=== PATIENT | male | born 1985 | race Caucasian/White ===

== ENCOUNTER 2022-03-01 11:57 | Outpatient (CLI) | payer BC, SELFPAY ==
--- NOTE | ~2022-03-01 | MR_ITS ---
MRI of the brain Clinical History: Left parietal glioma, status post partial resection Technique: Axial and sagittal T1-weighted images were acquired. These were followed by axial T2-weigh fernando, diffusion weighted, gradient, and FLAIR images. Following intravenous administration of 20 cc Mu ltiHance gadolinium, T1-weighted fat-sat imaging was performed in the axial, coronal, and sagittal pl anes. No prior studies available for comparison. Findings: There is a 3.3 x 1.8 x 2.7 cm area of postsurgical encephalomalacia/cystic change at the le ft frontoparietal junction region, with intrinsic T1 hyperintensity, suggestive of proteinaceous, or possibly hemorrhagic material, but no low signal evident on gradient images. There is surrounding amorphous hyperintense FLAIR signal throughout this region with corresponding T1 hypointensity, involving extent of up to approximately 6.4 cm in AP extent, 4 cm in transverse dimen cullen, and 4.3 cm in craniocaudal extent. There is a small focal area of apparent postcontrast enhance ment measuring 9 x 6 mm in extent (coronal postcontrast image 14, axial postcontrast image 18), suspi cious for residual tumor. No other parenchymal abnormality seen. Ventricles and subarachnoid spaces are otherwise unremarkable. Orbits are unremarkable. Changes cyst or polyp present in the floor the left maxillary sinus. Remaining paranasal sinuses are clear. Sagittal midline structures are intact. IMPRESSION: Postoperative change in the left frontoparietal junction region, as detailed above, with 3.3 x 1.8 x 2.7 cm area of postsurgical encephalitis/cystic change. 9 x 6 mm area of postcontrast enhancement adjacent to the surgical bed, suspicious for residual tumor . Fairly extensive surrounding hyperintense FLAIR signal which could reflect vasogenic edema. Additiona l residual nonenhancing tumor cannot be excluded if this is a low-grade glioma. Comparison with preop erative imaging examinations would be useful to better evaluate for interval change as well as the de gree of enhancement on the preoperative exam. Reviewed, dictated and finalized at location M. ER CHARGER IMPRESSION: Postoperative change in the left frontoparietal junction region, as detailed ab ove, with 3.3 x 1.8 x 2.7 cm area of postsurgical encephalitis/cystic change. 9 x 6 mm area of postcontrast enhancement adjacent to the surgical bed, suspici ous for residual tumor. Fairly extensive surrounding hyperintense FLAIR signal which could reflect vaso genic edema. Additional residual nonenhancing tumor cannot be excluded if this is a low-grade glioma. Comparison with preoperative imaging examinations would be useful to better evaluate for interval change as well as the degree of enhan cement on the preoperative exam.
== END 2022-03-01 11:58 ==
LOC: GOSHIMG 11:58
PROVIDERS: PCP Radiology Radiation Oncology; Visit Provider Radiology Radiation Oncology
DX: Z08 Encounter for follow-up examination after completed treatment for malignant neoplasm (principal); C71.9 Malignant neoplasm of brain, unspecified
CPT/HCPCS: 70553; A9577

== ENCOUNTER 2022-03-08 12:25 | Outpatient (CLI) | payer BC, SELFPAY ==
[2022-03-08 12:42] LABS: Basophils Absolute Auto 0.1 K/mm3 (0.0-0.1); Basophils Percent Auto 0.7 % (0.2-1.2); Eosinophils Absolute Auto 0.2 K/mm3 (0-0.3); Eosinophils Percent Auto 1.6 % (0-4.4); Hematocrit 48.7 % (42.0-52.0); Hemoglobin 15.5 g/dL (14.0-18.0); Immature Granulocyte Absolute 0.04 K/mm3 (0.00-0.031); Immature Granulocyte Percent A 0.4 % (0-0.5); Lymphocytes Absolute Auto 2.93 K/mm3 (0.9-3.2); Lymphocytes Percent Auto 28.5 % (18.3-44.2); Mean Corpuscular HGB Conc 31.8 g/dl (32-36); Mean Corpuscular Hemoglobin 30.6 pg (26-34); Mean Corpuscular Volume 96.1 fl (80-100); Mean Platelet Volume 9.6 fl (7.4-10.4); Monocytes Absolute Auto 0.7 K/mm3 (0.1-0.6); Monocytes Percent Auto 6.9 % (2.6-8.5); Neutrophils Absolute Auto 6.4 K/mm3 (1.3-6.7); Neutrophils Percent Auto 61.9 % (45.5-73.1); Platelet Count Result 305 k/mm3 (150-375); Red Blood Count 5.07 M/mm3 (4.6-6.20); Red Cell Distribution Width 13.3 % (11.5-14.5); White Blood Count 10.3 K/mm3 (4.5-10.0)
[2022-03-08 15:29] LABS: Alanine Aminotransferase 88 U/L (6-50); Albumin Level 4.2 g/dL (3.5-5.1); Alkaline Phosphatase 69 U/L (38-126); Anion Gap 8 mmol/L (8-16); Aspartate Amino Transferase 60 U/L (17-59); Bilirubin,Total 0.4 mg/dL (0.2-1.3); Blood Urea Nitrogen 22 mg/dL (9-20); Calcium 9.5 mg/dL (8.4-10.2); Carbon Dioxide 35 mmol/L (22-30); Chloride 97 mmol/L (98-107); Estimated Glomerular Filt Rate > 60; Glucose 159 mg/dL (65-110); Sodium 140 mmol/L (137-145)
== END 2022-03-08 12:26 | disposition home or self-care (01) ==
LOC: ANHLAB 12:26
PROVIDERS: Visit Provider Internal Medicine Hematology & Oncology
DX: C71.9 Malignant neoplasm of brain, unspecified (principal)
CPT/HCPCS: 36415; 80053; 85025

== ENCOUNTER 2022-04-03 11:22 | Outpatient (CLI) | payer BC, SELFPAY ==
[2022-04-03 11:32] LABS: Basophils Absolute Auto 0.1 K/mm3 (0.0-0.1); Basophils Percent Auto 0.4 % (0.2-1.2); Eosinophils Absolute Auto 0.1 K/mm3 (0-0.3); Hematocrit 52.8 % (42.0-52.0); Hemoglobin 17.6 g/dL (14.0-18.0); Immature Granulocyte Absolute 0.07 K/mm3 (0.00-0.031); Immature Granulocyte Percent A 0.5 % (0-0.5); Lymphocytes Absolute Auto 2.08 K/mm3 (0.9-3.2); Lymphocytes Percent Auto 15.5 % (18.3-44.2); Mean Corpuscular HGB Conc 33.3 g/dl (32-36); Mean Corpuscular Hemoglobin 30.8 pg (26-34); Mean Corpuscular Volume 92.5 fl (80-100); Mean Platelet Volume 10.6 fl (7.4-10.4); Monocytes Percent Auto 7.2 % (2.6-8.5); Neutrophils Absolute Auto 10.1 K/mm3 (1.3-6.7); Neutrophils Percent Auto 75.4 % (45.5-73.1); Platelet Count Result 302 k/mm3 (150-375); Red Blood Count 5.71 M/mm3 (4.6-6.20); Red Cell Distribution Width 13.4 % (11.5-14.5); White Blood Count 13.4 K/mm3 (4.5-10.0)
== END 2022-04-03 11:23 | disposition home or self-care (01) ==
LOC: ANHLAB 11:23
PROVIDERS: Visit Provider Internal Medicine Hematology & Oncology
DX: C71.9 Malignant neoplasm of brain, unspecified (principal)
CPT/HCPCS: 36415; 85025

== ENCOUNTER 2022-04-23 12:30 | Outpatient (RCR) | payer BC, SELFPAY ==
--- NOTE | 2022-03-02 13:58 | STOPEVAL1 ---
Assessment and note entered by Jana Villarreal, WATER PROJECT MANAGER Evaluation Information Assessment Status Evaluation Onset 12/2021 Subjective Information Patient reports he was at work and had a seizure. He was sent to the [facility] in [place]. Reports that his seizure was at the very end of December and had his surgery, tumor removal and craniotomy, on the Saturday after the . As a result, he states that they had to leave a little bit of the tumor and hopefully this will be taken care of with radiation. He expects six weeks of radiation through [facility]. Patient expects to return to work after radiation. 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 Patient reported that prior to the seizure and discovery of the brain tumor, at work, he would have to look at numbers and state them aloud to a work-mate and he was having difficulty doing so. He stated he knew the number but unable to say it. Reported Pain Level Pain Score 0: Self Report Assessment ST Clinical Summary SPEECH EVALuATION WITH PARTIAL COGNITIVE EVALUATION Patient was seen for a speech evaluation with some cognitive skills addressed secondary to patient's voicing concerns. He presented with moderate dysarthria characterized as reduced speech sound precision for bilabial and labial-dental sounds that require tight lip closure, and moderately reduced precision for lingua-dentals and posterio lingual sounds (t,d,s,z,l,n,k,g) along with transposing front and back sounds (i.e. gubble for dubble but unable to rapidly imitate a ka sound; had to repeat cookie in order to produce a repetitive back sound. Patient also presents with slow rate of speech. Patient's higher-level memory was assessed; he was in general oriented to time and place. Patient recalled 3 words immediately and after delay but unable to recall five words immediately and after delay. Additionally, he recalled information in a short story but unable to recall all 10 words from a longer story even with instructions to Remember ___.
--- NOTE | 2022-04-03 15:19 | PCSTNOTE ---
The patient treatment was not able to be completed on 04/03 due to illness. Will plan to continue treatment per plan of care.
--- NOTE | 2022-04-05 16:39 | STOPPROG ---
Assessment and note entered by Jana Villarreal EDGE ROLLER Evaluation Information Assessment Status Evaluation Assessment ST Clinical Summary PROGRESS NOTE AND RE-EVALUATION The patient has been seen for ten sessions of Speech Therapy including an evaluation of speech and nine treatment sessions. Patient reports that he feels Speech Therapy has been helpful. He stated I feel that I could barely talk when I got here and now I'm not exactly where I want to be but I've come pretty far. Just you teaching me sounds. Patient indicated that he has two more weeks of radiation and feels that he would like to continue with direct Speech Therapy to further improve his speech. When asked what exactly he would like to improve, he stated, Tying everything together. Patient was re-evaluated today and found to have improved ability to produce sounds with more precision, at a quicker rate, and with improved rhythm. Additionally, his speech sound precision improved at the word, phrase, and sentence levels. Conversationally, patient is intelligible however rate is slower than expected and this is when speech sound errors occur. Speech sound errors include reduced precision, sound substitutions, and occasional omissions. For example, initially patient was not able to produce any initial /s/ sounds in /s/ consonant blends (i .e. /-p/ for /sp/ such as pace for space. Additionally, he was noted to blow air through his lips for /p,b,m,f,v/ sounds making them more breathy and less precise. Currently he is able to to make all of those sounds precisely at the word, phrase, and even sentence levels however much air escapes through the lips at the conversational level. Continued Speech Therapy 2x weekly for 2-4 additional weeks is recommended to further address speech sound errors and inconsistencies in order to improve overall precision, rate, and rhythm. Thank you for this referral. Plan of Care Interventions Treatment of Speech ST Services Indicated Yes Treatment Frequency and 2x weekyly/4 weeks
--- NOTE | 2022-04-17 10:47 | PCSTNOTE ---
The patient treatment was not able to be completed on 04/13 due to lack of transportation Will plan to continue treatment per plan of care.
--- NOTE | 2022-04-26 11:04 | PCSTNOTE ---
The patient treatment was not able to be completed on 04/26] due to having to go to labwork at time of scheduled appointment. Will plan to continue treatment per plan of care.
--- NOTE | 2022-05-01 08:21 | STOPDC ---
Assessment and note entered by Jana Villarreal HOG OPERATOR Evaluation Information Assessment Status Discharge - Pt Not Presen Assessment ST Clinical Summary DISCHARGE SUMMARY This patient was seen for 14 visit of Speech Therapy focusing on improving speech intelligibility and rate of speech following removal of brain tumor and craniotomy. He also underwent six weeks of radiation and chemotherapy during these sessions. Patient was very cooperative with therapy tasks and practiced exercises, words and sentences at home to increase the strenth and precision of speech sound productions. By time of discharge, patient was 100% intelligible although certain speech sounds remained impaired including plosive labial sounds /p,b/ and fricative labial sounds, /f,v/ all of which are inconsistently distorted. The productions of these sounds are improved over initial evaluation but are inconsistently produced. Additionally, patient has been observed to inconsistently produce /s/ for the th sound ( wiss rather than with ). Patient is able to imitate polysyllable words and sentences however accuracies do decrease when patient is speaking independently. Patient would benefit from additional Speech Therapy however patient is being discharged at his request due to moving back to his home in [place], [place]. Progress was made toward all goals. Thank you. Plan of Care ST Services Indicated No
== END 2022-05-16 09:30 | disposition home or self-care (01) ==
LOC: ANHST 12:30
PROVIDERS: PCP Radiology Radiation Oncology
DX: Z48.811 Encounter for surgical aftercare following surgery on the nervous system (principal); Z98.890 Other specified postprocedural states
CPT/HCPCS: 92507; 92522

== ENCOUNTER 2022-04-26 09:02 | Outpatient (CLI) | payer BC, SELFPAY ==
[2022-04-26 09:22] LABS: Blood Urea Nitrogen 17 mg/dL (8-26); Carbon Dioxide 31 mmol/L (22-30); Chloride 95 mmol/L (98-109); Estimated Glomerular Filt Rate > 60; Glucose 369 mg/dL (70-105); Ionized Calcium (POC) 1.17 mmol/L (1.11-1.31); Potassium 4.7 mmol/L (3.5-4.9); Sodium 131 mmol/L (138-146)
[2022-04-26 10:40] LABS: Basophils Percent Auto 0.3 % (0.2-1.2); Eosinophils Absolute Auto 0.2 K/mm3 (0-0.3); Eosinophils Percent Auto 2.1 % (0-4.4); Hematocrit 51.5 % (42.0-52.0); Hemoglobin 18.1 g/dL (14.0-18.0); Immature Granulocyte Absolute 0.08 K/mm3 (0.00-0.031); Immature Granulocyte Percent A 0.9 % (0-0.5); Lymphocytes Absolute Auto 2.33 K/mm3 (0.9-3.2); Lymphocytes Percent Auto 25.4 % (18.3-44.2); Mean Corpuscular HGB Conc 35.1 g/dl (32-36); Mean Corpuscular Hemoglobin 30.9 pg (26-34); Mean Platelet Volume 11.2 fl (7.4-10.4); Monocytes Absolute Auto 0.6 K/mm3 (0.1-0.6); Monocytes Percent Auto 6.2 % (2.6-8.5); Neutrophils Percent Auto 65.1 % (45.5-73.1); Nucleated Red Blood Cells Perc 0.2 % (0.0-0.2); Platelet Count Result 285 k/mm3 (150-375); Red Blood Count 5.85 M/mm3 (4.6-6.20); Red Cell Distribution Width 13.4 % (11.5-14.5); White Blood Count 9.2 K/mm3 (4.5-10.0)
== END 2022-04-26 09:03 | disposition home or self-care (01) ==
PROVIDERS: Visit Provider Internal Medicine Hematology & Oncology
DX: C71.9 Malignant neoplasm of brain, unspecified (principal)
CPT/HCPCS: 36415; 80047; 80053; 85025

== ENCOUNTER 2022-06-04 09:01 | Outpatient (CLI) | payer BC, SELFPAY ==
[2022-06-04 09:39] LABS: Basophils Absolute Auto 0.1 K/mm3 (0.0-0.1); Basophils Percent Auto 0.9 % (0.2-1.2); Eosinophils Absolute Auto 0.2 K/mm3 (0-0.3); Eosinophils Percent Auto 2.6 % (0-4.4); Hematocrit 37.1 % (42.0-52.0); Hemoglobin 11.8 g/dL (14.0-18.0); Immature Granulocyte Absolute 0.15 K/mm3 (0.00-0.031); Immature Granulocyte Percent A 1.9 % (0-0.5); Lymphocytes Absolute Auto 2.31 K/mm3 (0.9-3.2); Lymphocytes Percent Auto 28.7 % (18.3-44.2); Mean Corpuscular HGB Conc 31.8 g/dl (32-36); Mean Corpuscular Hemoglobin 28.5 pg (26-34); Mean Corpuscular Volume 89.6 fl (80-100); Mean Platelet Volume 8.9 fl (7.4-10.4); Monocytes Absolute Auto 0.6 K/mm3 (0.1-0.6); Monocytes Percent Auto 7.6 % (2.6-8.5); Neutrophils Absolute Auto 4.7 K/mm3 (1.3-6.7); Neutrophils Percent Auto 58.3 % (45.5-73.1); Platelet Count Result 360 k/mm3 (150-375); Red Blood Count 4.14 M/mm3 (4.6-6.20); Red Cell Distribution Width 14.6 % (11.5-14.5)
[2022-06-04 09:46] LABS: Blood Urea Nitrogen 9 mg/dL (8-26); Carbon Dioxide 30 mmol/L (22-30); Chloride 103 mmol/L (98-109); Estimated Glomerular Filt Rate > 60; Glucose 111 mg/dL (70-105); Ionized Calcium (POC) 1.22 mmol/L (1.11-1.31); Potassium 4.1 mmol/L (3.5-4.9); Sodium 141 mmol/L (138-146)
[2022-06-04 10:32] LABS: Alanine Aminotransferase 30 U/L (6-50); Albumin Level 3.6 g/dL (3.5-5.1); Alkaline Phosphatase 58 U/L (38-126); Anion Gap 6 mmol/L (8-16); Aspartate Amino Transferase 20 U/L (17-59); Bilirubin,Total 0.5 mg/dL (0.2-1.3); Blood Urea Nitrogen 10 mg/dL (9-20); Calcium 9.3 mg/dL (8.4-10.2); Carbon Dioxide 31 mmol/L (22-30); Chloride 103 mmol/L (98-107); Estimated Glomerular Filt Rate > 60; Glucose 110 mg/dL (65-110); Potassium 4.1 mmol/L (3.4-5.0); Sodium 140 mmol/L (137-145)
== END 2022-06-04 09:02 | disposition home or self-care (01) ==
LOC: ANHLAB 09:03
PROVIDERS: PCP Family Medicine; Visit Provider Internal Medicine Hematology & Oncology
DX: C71.9 Malignant neoplasm of brain, unspecified (principal)
CPT/HCPCS: 36415; 80047; 80053; 85025

== ENCOUNTER 2022-07-03 09:43 | Outpatient (CLI) | payer BC, SELFPAY ==
[2022-07-03 09:54] LABS: Basophils Absolute Auto 0.1 K/mm3 (0.0-0.1); Basophils Percent Auto 0.5 % (0.2-1.2); Eosinophils Absolute Auto 0.3 K/mm3 (0-0.3); Eosinophils Percent Auto 3.4 % (0-4.4); Hematocrit 39.9 % (42.0-52.0); Immature Granulocyte Absolute 0.03 K/mm3 (0.00-0.031); Immature Granulocyte Percent A 0.3 % (0-0.5); Lymphocytes Absolute Auto 3.15 K/mm3 (0.9-3.2); Lymphocytes Percent Auto 34.4 % (18.3-44.2); Mean Corpuscular HGB Conc 32.6 g/dl (32-36); Mean Corpuscular Hemoglobin 29.6 pg (26-34); Mean Corpuscular Volume 90.9 fl (80-100); Monocytes Absolute Auto 0.5 K/mm3 (0.1-0.6); Monocytes Percent Auto 5.1 % (2.6-8.5); Neutrophils Absolute Auto 5.2 K/mm3 (1.3-6.7); Neutrophils Percent Auto 56.3 % (45.5-73.1); Platelet Count Result 397 k/mm3 (150-375); Red Blood Count 4.39 M/mm3 (4.6-6.20); Red Cell Distribution Width 16.1 % (11.5-14.5); White Blood Count 9.2 K/mm3 (4.5-10.0)
[2022-07-03 09:59] LABS: Blood Urea Nitrogen 20 mg/dL (8-26); Carbon Dioxide 28 mmol/L (22-30); Chloride 101 mmol/L (98-109); Estimated Glomerular Filt Rate > 60; Glucose 111 mg/dL (70-105); Ionized Calcium (POC) 1.24 mmol/L (1.11-1.31); Potassium 3.6 mmol/L (3.5-4.9); Sodium 143 mmol/L (138-146)
[2022-07-03 11:03] LABS: Alanine Aminotransferase 30 U/L (6-50); Albumin Level 4.6 g/dL (3.5-5.1); Alkaline Phosphatase 57 U/L (38-126); Anion Gap 8 mmol/L (8-16); Aspartate Amino Transferase 22 U/L (17-59); Bilirubin,Total 0.6 mg/dL (0.2-1.3); Blood Urea Nitrogen 20 mg/dL (9-20); Calcium 9.8 mg/dL (8.4-10.2); Carbon Dioxide 33 mmol/L (22-30); Chloride 101 mmol/L (98-107); Estimated Glomerular Filt Rate > 60; Glucose 109 mg/dL (65-110); Potassium 3.5 mmol/L (3.4-5.0); Sodium 142 mmol/L (137-145)
== END 2022-07-03 09:44 | disposition home or self-care (01) ==
LOC: ANHLAB 09:44
PROVIDERS: PCP Family Medicine; Visit Provider Internal Medicine Hematology & Oncology
DX: C71.9 Malignant neoplasm of brain, unspecified (principal)
CPT/HCPCS: 36415; 80047; 80053; 85025

== ENCOUNTER 2022-08-28 09:51 | Outpatient (CLI) | payer BC, SELFPAY ==
--- NOTE | ~2022-08-28 | MR_ITS ---
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 These were followed by axial T2-weigh fernando, diffusion weighted, gradient, and FLAIR images. Following intravenous administration of 20 cc Mu ltiHance gadolinium, T1-weighted fat-sat imaging was performed in the axial, coronal, and sagittal pl anes. COMPARISON: 03/01/2022 Findings: There is extensive FLAIR hyperintense signal involving the left insular cortex and surround ing left frontal lobe. There is an area cystic encephalomalacia within this area of abnormal FLAIR hy perintense signal. There is no abnormal postcontrast enhancement. Extensive FLAIR signal abnormality is essentially stable from prior exam. Ventricles and subarachnoid spaces otherwise are unremarkable. Orbits are unremarkable. Paranasal sin uses demonstrate small retention cysts or polyps. Major intracranial flow voids appear intact. Sagittal midline structures are unremarkable. No abnormal postcontrast enhancement identified. IMPRESSION: Extensive abnormal FLAIR hyperintense signal in the left insular cortex and surrounding the frontal l obe, with area of central cystic encephalomalacia within this abnormality. The cystic change probably represents postoperative encephalomalacia. The FLAIR hyperintense signal abnormality could reflect p ostoperative change versus low-grade residual tumor/glioma. Findings overall are essentially stable f rom prior exam in either case. Reviewed, dictated and finalized at location M. IMPRESSION: Extensive abnormal FLAIR hyperintense signal in the left insular cortex and ivette rounding the frontal lobe, with area of central cystic encephalomalacia within this abnormality. The cystic change probably represents postoperative encephalo malacia. The FLAIR hyperintense signal abnormality could reflect postoperative change versus low-grade residual tumor/glioma. Findings overall are essentially stable from prior exam in either case.
== END 2022-08-28 09:52 | disposition home or self-care (01) ==
LOC: ANHIMG 09:54
PROVIDERS: PCP Family Medicine; Visit Provider Internal Medicine Hematology & Oncology
DX: C71.9 Malignant neoplasm of brain, unspecified (principal)
CPT/HCPCS: 70553; A9577

== ENCOUNTER 2022-09-07 09:12 | Outpatient (CLI) | payer BC, SELFPAY ==
[2022-09-07 09:24] LABS: Basophils Percent Auto 0.5 % (0.2-1.2); Eosinophils Absolute Auto 0.2 K/mm3 (0-0.3); Eosinophils Percent Auto 2.9 % (0-4.4); Hematocrit 42.5 % (42.0-52.0); Hemoglobin 13.9 g/dL (14.0-18.0); Immature Granulocyte Absolute 0.02 K/mm3 (0.00-0.031); Immature Granulocyte Percent A 0.3 % (0-0.5); Lymphocytes Absolute Auto 2.13 K/mm3 (0.9-3.2); Lymphocytes Percent Auto 27.2 % (18.3-44.2); Mean Corpuscular HGB Conc 32.7 g/dl (32-36); Mean Corpuscular Hemoglobin 29.7 pg (26-34); Mean Corpuscular Volume 90.8 fl (80-100); Mean Platelet Volume 9.2 fl (7.4-10.4); Monocytes Absolute Auto 0.5 K/mm3 (0.1-0.6); Monocytes Percent Auto 6.4 % (2.6-8.5); Neutrophils Absolute Auto 4.9 K/mm3 (1.3-6.7); Neutrophils Percent Auto 62.7 % (45.5-73.1); Platelet Count Result 272 k/mm3 (150-375); Red Blood Count 4.68 M/mm3 (4.6-6.20); Red Cell Distribution Width 12.8 % (11.5-14.5); White Blood Count 7.8 K/mm3 (4.5-10.0)
[2022-09-07 09:30] LABS: Blood Urea Nitrogen 30 mg/dL (8-26); Carbon Dioxide 29 mmol/L (22-30); Chloride 100 mmol/L (98-109); Estimated Glomerular Filt Rate > 60; Glucose 103 mg/dL (70-105); Ionized Calcium (POC) 1.15 mmol/L (1.11-1.31); Potassium 3.7 mmol/L (3.5-4.9); Sodium 142 mmol/L (138-146)
[2022-09-07 12:27] LABS: Alanine Aminotransferase 29 U/L (6-50); Albumin Level 4.6 g/dL (3.5-5.1); Alkaline Phosphatase 53 U/L (38-126); Anion Gap 10 mmol/L (8-16); Aspartate Amino Transferase 21 U/L (17-59); Bilirubin,Total 0.2 mg/dL (0.2-1.3); Blood Urea Nitrogen 33 mg/dL (9-20); Calcium 10.4 mg/dL (8.4-10.2); Carbon Dioxide 33 mmol/L (22-30); Chloride 99 mmol/L (98-107); Estimated Glomerular Filt Rate > 60; Glucose 105 mg/dL (65-110); Potassium 3.9 mmol/L (3.4-5.0); Sodium 142 mmol/L (137-145)
== END 2022-09-07 09:13 | disposition home or self-care (01) ==
LOC: ANHLAB 09:13
PROVIDERS: PCP Family Medicine; Visit Provider Internal Medicine Hematology & Oncology
DX: C71.9 Malignant neoplasm of brain, unspecified (principal)
CPT/HCPCS: 36415; 80047; 80053; 85025

== ENCOUNTER 2022-10-08 09:16 | Outpatient (CLI) | payer BC, SELFPAY ==
[2022-10-08 09:32] LABS: Basophils Percent Auto 0.4 % (0.2-1.2); Eosinophils Absolute Auto 0.3 K/mm3 (0-0.3); Eosinophils Percent Auto 3.6 % (0-4.4); Hematocrit 43.2 % (42.0-52.0); Hemoglobin 14.2 g/dL (14.0-18.0); Immature Granulocyte Absolute 0.02 K/mm3 (0.00-0.031); Immature Granulocyte Percent A 0.2 % (0-0.5); Lymphocytes Absolute Auto 2.36 K/mm3 (0.9-3.2); Lymphocytes Percent Auto 24.7 % (18.3-44.2); Mean Corpuscular HGB Conc 32.9 g/dl (32-36); Mean Corpuscular Hemoglobin 29.3 pg (26-34); Mean Corpuscular Volume 89.1 fl (80-100); Mean Platelet Volume 9.3 fl (7.4-10.4); Monocytes Absolute Auto 0.6 K/mm3 (0.1-0.6); Neutrophils Absolute Auto 6.2 K/mm3 (1.3-6.7); Neutrophils Percent Auto 65.1 % (45.5-73.1); Platelet Count Result 254 k/mm3 (150-375); Red Blood Count 4.85 M/mm3 (4.6-6.20); Red Cell Distribution Width 13.2 % (11.5-14.5); White Blood Count 9.6 K/mm3 (4.5-10.0)
[2022-10-08 09:38] LABS: Blood Urea Nitrogen 35 mg/dL (8-26); Carbon Dioxide 28 mmol/L (22-30); Chloride 101 mmol/L (98-109); Estimated Glomerular Filt Rate > 60; Glucose 125 mg/dL (70-105); Potassium 3.6 mmol/L (3.5-4.9); Sodium 141 mmol/L (138-146)
[2022-10-08 11:19] LABS: Alanine Aminotransferase 31 U/L (6-50); Albumin Level 4.6 g/dL (3.5-5.1); Alkaline Phosphatase 53 U/L (38-126); Anion Gap 6 mmol/L (8-16); Aspartate Amino Transferase 24 U/L (17-59); Bilirubin,Total 0.4 mg/dL (0.2-1.3); Blood Urea Nitrogen 37 mg/dL (9-20); Carbon Dioxide 28 mmol/L (22-30); Chloride 102 mmol/L (98-107); Estimated Glomerular Filt Rate > 60; Glucose 121 mg/dL (65-110); Potassium 3.6 mmol/L (3.4-5.0); Sodium 136 mmol/L (137-145)
== END 2022-10-08 09:17 | disposition home or self-care (01) ==
LOC: ANHLAB 09:17
PROVIDERS: PCP Family Medicine; Visit Provider Internal Medicine Hematology & Oncology
DX: C71.9 Malignant neoplasm of brain, unspecified (principal)
CPT/HCPCS: 36415; 80047; 80053; 85025

== ENCOUNTER 2022-11-07 09:14 | Outpatient (CLI) | payer BC, SELFPAY ==
[2022-11-07 09:27] LABS: Basophils Percent Auto 0.5 % (0.2-1.2); Eosinophils Absolute Auto 0.2 K/mm3 (0-0.3); Eosinophils Percent Auto 2.7 % (0-4.4); Hematocrit 40.7 % (42.0-52.0); Hemoglobin 13.4 g/dL (14.0-18.0); Immature Granulocyte Absolute 0.03 K/mm3 (0.00-0.031); Immature Granulocyte Percent A 0.4 % (0-0.5); Lymphocytes Absolute Auto 2.06 K/mm3 (0.9-3.2); Lymphocytes Percent Auto 27.7 % (18.3-44.2); Mean Corpuscular HGB Conc 32.9 g/dl (32-36); Mean Corpuscular Hemoglobin 29.8 pg (26-34); Mean Corpuscular Volume 90.4 fl (80-100); Mean Platelet Volume 9.3 fl (7.4-10.4); Monocytes Absolute Auto 0.5 K/mm3 (0.1-0.6); Neutrophils Absolute Auto 4.6 K/mm3 (1.3-6.7); Neutrophils Percent Auto 61.7 % (45.5-73.1); Platelet Count Result 268 k/mm3 (150-375); Red Cell Distribution Width 14.1 % (11.5-14.5); White Blood Count 7.5 K/mm3 (4.5-10.0)
[2022-11-07 09:33] LABS: Blood Urea Nitrogen 23 mg/dL (8-26); Carbon Dioxide 29 mmol/L (22-30); Chloride 101 mmol/L (98-109); Estimated Glomerular Filt Rate > 60; Glucose 116 mg/dL (70-105); Ionized Calcium (POC) 1.23 mmol/L (1.11-1.31); Potassium 3.9 mmol/L (3.5-4.9); Sodium 143 mmol/L (138-146)
[2022-11-07 10:11] LABS: Alanine Aminotransferase 36 U/L (6-50); Albumin Level 4.8 g/dL (3.5-5.1); Alkaline Phosphatase 58 U/L (38-126); Anion Gap 9 mmol/L (8-16); Aspartate Amino Transferase 23 U/L (17-59); Bilirubin,Total 0.5 mg/dL (0.2-1.3); Blood Urea Nitrogen 24 mg/dL (9-20); Calcium 9.8 mg/dL (8.4-10.2); Carbon Dioxide 31 mmol/L (22-30); Chloride 102 mmol/L (98-107); Estimated Glomerular Filt Rate > 60; Glucose 117 mg/dL (65-110); Sodium 142 mmol/L (137-145)
== END 2022-11-07 09:15 | disposition home or self-care (01) ==
PROVIDERS: PCP Family Medicine; Visit Provider Internal Medicine Hematology & Oncology
DX: C71.9 Malignant neoplasm of brain, unspecified (principal)
CPT/HCPCS: 36415; 80047; 80053; 85025

== ENCOUNTER 2022-12-03 09:31 | Outpatient (CLI) | payer BC, SELFPAY ==
--- NOTE | ~2022-12-03 | MR_ITS ---
EXAMINATION: MR brain/brain stem wo/w con DATE: 12/03/2022 10:23 INDICATION: Low-grade glioma of brain. TECHNIQUE: Magnetic resonance imaging (MRI) of the brain and brainstem was performed without and with 20 mL MultiHance intravenous contrast. COMPARISON: Brain MRI 08/28/2022, 03/01/2022 FINDINGS: There is increased T2-weighted signal intensity in the left frontoparietal region and left insula in a volume measuring 6.5 x 4.0 x 4.2 cm. In the center of this volume, there is a resection c avity with minimal thin marginal enhancement. There is no acute ischemic infarct. The ventricles are normal in size. The orbits are normal. There is mucosal thickening in the paranasal sinuses. The mast oid air cells are normal. IMPRESSION: 1. Volume of abnormal signal intensity in the left frontoparietal region and left insula with resecti on cavity within this volume. The size of this volume is unchanged from 03/01/22. This volume may rep resent neoplasm and/or treatment change. Comparison with preoperative imaging is recommended. Reviewed, dictated and finalized at location E. IMPRESSION: 1. Volume of abnormal signal intensity in the left frontoparietal region and le ft insula with resection cavity within this volume. The size of this volume is unchanged from 03/01/22. This volume may represent neoplasm and/or treatment ch shira. Comparison with preoperative imaging is recommended.
== END 2022-12-03 09:32 | disposition home or self-care (01) ==
PROVIDERS: PCP Family Medicine; Visit Provider Internal Medicine
DX: C71.9 Malignant neoplasm of brain, unspecified (principal)
CPT/HCPCS: 70553; A9577

== ENCOUNTER 2022-12-10 10:02 | Outpatient (CLI) | payer BC, SELFPAY ==
[2022-12-10 10:12] LABS: Basophils Absolute Auto 0.1 K/mm3 (0.0-0.1); Basophils Percent Auto 0.7 % (0.2-1.2); Eosinophils Absolute Auto 0.2 K/mm3 (0-0.3); Eosinophils Percent Auto 3.4 % (0-4.4); Hematocrit 41.2 % (42.0-52.0); Hemoglobin 13.6 g/dL (14.0-18.0); Immature Granulocyte Absolute 0.04 K/mm3 (0.00-0.031); Immature Granulocyte Percent A 0.6 % (0-0.5); Lymphocytes Absolute Auto 1.87 K/mm3 (0.9-3.2); Lymphocytes Percent Auto 27.8 % (18.3-44.2); Mean Corpuscular Hemoglobin 30.6 pg (26-34); Mean Corpuscular Volume 92.6 fl (80-100); Mean Platelet Volume 8.8 fl (7.4-10.4); Monocytes Absolute Auto 0.4 K/mm3 (0.1-0.6); Neutrophils Absolute Auto 4.1 K/mm3 (1.3-6.7); Neutrophils Percent Auto 61.5 % (45.5-73.1); Platelet Count Result 272 k/mm3 (150-375); Red Blood Count 4.45 M/mm3 (4.6-6.20); Red Cell Distribution Width 13.9 % (11.5-14.5); White Blood Count 6.7 K/mm3 (4.5-10.0)
[2022-12-10 10:19] LABS: Blood Urea Nitrogen 20 mg/dL (8-26); Carbon Dioxide 27 mmol/L (22-30); Chloride 103 mmol/L (98-109); Estimated Glomerular Filt Rate > 60; Glucose 125 mg/dL (70-105); Ionized Calcium (POC) 1.18 mmol/L (1.11-1.31); Potassium 3.4 mmol/L (3.5-4.9); Sodium 145 mmol/L (138-146)
[2022-12-10 11:47] LABS: Alanine Aminotransferase 36 U/L (6-50); Albumin Level 4.5 g/dL (3.5-5.1); Alkaline Phosphatase 54 U/L (38-126); Anion Gap 8 mmol/L (8-16); Aspartate Amino Transferase 25 U/L (17-59); Bilirubin,Total 0.4 mg/dL (0.2-1.3); Blood Urea Nitrogen 20 mg/dL (9-20); Calcium 9.1 mg/dL (8.4-10.2); Carbon Dioxide 30 mmol/L (22-30); Chloride 105 mmol/L (98-107); Estimated Glomerular Filt Rate > 60; Glucose 124 mg/dL (65-110); Potassium 3.4 mmol/L (3.4-5.0); Sodium 143 mmol/L (137-145)
== END 2022-12-10 10:03 | disposition home or self-care (01) ==
LOC: ANHLAB 10:04
PROVIDERS: PCP Family Medicine; Visit Provider Internal Medicine Hematology & Oncology
DX: C71.9 Malignant neoplasm of brain, unspecified (principal)
CPT/HCPCS: 36415; 80047; 80053; 85025

== ENCOUNTER 2023-02-11 08:08 | Outpatient (CLI) | payer BC, SELFPAY ==
--- NOTE | ~2023-02-11 | MR_ITS ---
EXAMINATION: MR brain/brain stem wo/w con DATE: 02/11/2023 08:55 INDICATION: Low-grade glioma of brain. TECHNIQUE: Magnetic resonance imaging (MRI) of the brain and brainstem was performed without and with 20 mL MultiHance intravenous contrast. COMPARISON: Brain MRI 12/03/2022, 08/28/2022, 03/01/2022 FINDINGS: Again seen is a resection cavity in posterior left frontal lobe. There is increased T2-weig hted signal intensity around the resection cavity with involvement of the frontoparietal region and i nsula. There is minimal thin marginal enhancement at the resection cavity superolaterally. Again seen are old blood products in left frontal lobe sulci. There is no acute ischemic infarct. The ventricle s are normal in size. There is mucosal thickening in the paranasal sinuses. The orbits are normal. Th e mastoid air cells are normal. IMPRESSION: 1. Stable volume of abnormal signal intensity in the left frontoparietal region and left insula with resection cavity within this volume. This volume may represent neoplasm and/or treatment change. Comp arison with preoperative imaging is recommended. Reviewed, dictated and finalized at location A. ER AND CRUSHER TENDER IMPRESSION: 1. Stable volume of abnormal signal intensity in the left frontoparietal region and left insula with resection cavity within this volume. This volume may repr esent neoplasm and/or treatment change. Comparison with preoperative imaging is recommended.
== END 2023-02-11 08:09 | disposition home or self-care (01) ==
LOC: ANHIMG 08:16
PROVIDERS: PCP Family Medicine; Visit Provider Internal Medicine
DX: C71.9 Malignant neoplasm of brain, unspecified (principal)
CPT/HCPCS: 70553; A9577

== ENCOUNTER 2023-04-15 09:38 | Outpatient (CLI) | payer BC, SELFPAY ==
--- NOTE | ~2023-04-15 | MR_ITS ---
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 These were followed by axial T2-weigh fernando, diffusion weighted, gradient, and FLAIR images. Following intravenous administration of 20 cc Mu ltiHance gadolinium, T1-weighted fat-sat imaging was performed in the axial, coronal, and sagittal pl anes. COMPARISON: 02/11/2023 Findings: Stable area cystic encephalomalacia in the left posterior frontal lobe region. There is hyp erintense FLAIR signal involving surrounding posterior left frontal lobe extending to the left insula r cortex and left temporal lobe. Signal abnormality is evidence of inflammation are stable from prior exam. No associated postcontrast enhancement. No acute infarct or acute intracranial hemorrhage identified. No other signal abnormality evident in the remainder of the brain. There is mild bilateral maxillary and ethmoid sinus disease. Remaining paranasal sinuses and mastoid air cells are clear. Ventricles and subarachnoid spaces are nondilated. Orbits are unremarkable. Bonnie r intracranial flow voids appear intact. Sagittal midline structures are intact. IMPRESSION: Stable hyperintense FLAIR signal abnormality in the posterior left frontal lobe and left insular vicki ex/left temporal lobe surrounding an area cystic/postsurgical encephalomalacia. FLAIR hyperintense si gnal could reflect posttreatment change and/or residual low-grade glioma. Reviewed, dictated and finalized at location . BURNER IMPRESSION: Stable hyperintense FLAIR signal abnormality in the posterior left frontal lobe and left insular cortex/left temporal lobe surrounding an area cystic/postsurg ical encephalomalacia. FLAIR hyperintense signal could reflect posttreatment ch shira and/or residual low-grade glioma.
== END 2023-04-15 09:39 | disposition home or self-care (01) ==
PROVIDERS: PCP Family Medicine; Visit Provider Internal Medicine Hematology & Oncology
DX: C71.9 Malignant neoplasm of brain, unspecified (principal)
CPT/HCPCS: 70553; A9577

== ENCOUNTER 2023-04-22 11:13 | Outpatient (CLI) | payer BC, SELFPAY ==
[2023-04-22 11:32] LABS: Basophils Absolute Auto 0.1 K/mm3 (0.0-0.1); Basophils Percent Auto 0.7 % (0.2-1.2); Eosinophils Absolute Auto 0.3 K/mm3 (0-0.3); Eosinophils Percent Auto 3.3 % (0-4.4); Hematocrit 47.6 % (42.0-52.0); Hemoglobin 15.8 g/dL (14.0-18.0); Immature Granulocyte Absolute 0.05 K/mm3 (0.00-0.031); Immature Granulocyte Percent A 0.6 % (0-0.5); Lymphocytes Absolute Auto 2.48 K/mm3 (0.9-3.2); Lymphocytes Percent Auto 28.2 % (18.3-44.2); Mean Corpuscular HGB Conc 33.2 g/dl (32-36); Mean Corpuscular Hemoglobin 30.7 pg (26-34); Mean Corpuscular Volume 92.6 fl (80-100); Mean Platelet Volume 9.6 fl (7.4-10.4); Monocytes Absolute Auto 0.6 K/mm3 (0.1-0.6); Monocytes Percent Auto 7.2 % (2.6-8.5); Neutrophils Absolute Auto 5.3 K/mm3 (1.3-6.7); Platelet Count Result 258 k/mm3 (150-375); Red Blood Count 5.14 M/mm3 (4.6-6.20); Red Cell Distribution Width 12.9 % (11.5-14.5); White Blood Count 8.8 K/mm3 (4.5-10.0)
[2023-04-22 11:39] LABS: Blood Urea Nitrogen 24 mg/dL (8-26); Carbon Dioxide 28 mmol/L (22-30); Chloride 101 mmol/L (98-109); Estimated Glomerular Filt Rate > 60; Glucose 109 mg/dL (70-105); Ionized Calcium (POC) 1.18 mmol/L (1.11-1.31); Sodium 143 mmol/L (138-146)
[2023-04-22 12:35] LABS: Alanine Aminotransferase 71 U/L (6-50); Albumin Level 4.6 g/dL (3.5-5.1); Alkaline Phosphatase 59 U/L (38-126); Anion Gap 7 mmol/L (8-16); Aspartate Amino Transferase 44 U/L (17-59); Bilirubin,Total 0.5 mg/dL (0.2-1.3); Blood Urea Nitrogen 25 mg/dL (9-20); Calcium 9.6 mg/dL (8.4-10.2); Carbon Dioxide 31 mmol/L (22-30); Chloride 103 mmol/L (98-107); Estimated Glomerular Filt Rate > 60; Glucose 111 mg/dL (65-110); Sodium 141 mmol/L (137-145)
== END 2023-04-22 11:14 | disposition home or self-care (01) ==
PROVIDERS: PCP Family Medicine; Visit Provider Internal Medicine Hematology & Oncology
DX: C71.9 Malignant neoplasm of brain, unspecified (principal)
CPT/HCPCS: 36415; 80047; 80053; 85025

== ENCOUNTER 2023-06-24 09:13 | Outpatient (CLI) | payer BC, SELFPAY ==
--- NOTE | ~2023-06-24 | MR_ITS ---
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 TECHNIQUE: Magnetic resonance imaging (MRI) of the brain and brainstem was performed without and with 20 mL MultiHance intravenous contrast. COMPARISON: Brain MRI 04/15/2023, 02/11/23 FINDINGS: There is a resection cavity in left frontoparietal region increased T2-weighted signal inte nsity in the surrounding brain and adjacent left subinsular white matter. No abnormal contrast enhanc ement. There is no acute ischemic infarct or intracranial hemorrhage. There is a small focus of incre ased T2-weighted signal intensity in the right parietal deep white matter, likely not clinically sign ificant. The ventricles are normal in size. There is mucosal thickening in the paranasal sinuses. The orbits are normal. The mastoid air cells are normal. IMPRESSION: 1. Resection cavity in left frontoparietal region. Stable increased T2-weighted signal intensity victoria cent to the cavity may be treatment change. Comparison with preoperative imaging is recommended. Reviewed, dictated and finalized at location E. IMPRESSION: 1. Resection cavity in left frontoparietal region. Stable increased T2-weighted signal intensity adjacent to the cavity may be treatment change. Comparison wi th preoperative imaging is recommended.
== END 2023-06-24 09:14 | disposition home or self-care (01) ==
LOC: ANHIMG 09:24
PROVIDERS: PCP Family Medicine; Visit Provider Internal Medicine Hematology & Oncology
DX: C71.9 Malignant neoplasm of brain, unspecified (principal)
CPT/HCPCS: 70553; A9577

== ENCOUNTER 2023-07-01 10:47 | Outpatient (CLI) | payer BC, SELFPAY ==
[2023-07-01 11:04] LABS: Basophils Percent Auto 0.5 % (0.2-1.2); Eosinophils Absolute Auto 0.4 K/mm3 (0-0.3); Eosinophils Percent Auto 5.4 % (0-4.4); Hematocrit 49.3 % (42.0-52.0); Hemoglobin 16.2 g/dL (14.0-18.0); Immature Granulocyte Absolute 0.03 K/mm3 (0.00-0.031); Immature Granulocyte Percent A 0.4 % (0-0.5); Mean Corpuscular HGB Conc 32.9 g/dl (32-36); Mean Corpuscular Hemoglobin 30.7 pg (26-34); Mean Corpuscular Volume 93.5 fl (80-100); Mean Platelet Volume 9.7 fl (7.4-10.4); Monocytes Absolute Auto 0.5 K/mm3 (0.1-0.6); Monocytes Percent Auto 6.7 % (2.6-8.5); Neutrophils Absolute Auto 4.4 K/mm3 (1.3-6.7); Platelet Count Result 251 k/mm3 (150-375); Red Blood Count 5.27 M/mm3 (4.6-6.20); Red Cell Distribution Width 12.3 % (11.5-14.5); White Blood Count 7.7 K/mm3 (4.5-10.0)
[2023-07-01 11:08] LABS: Blood Urea Nitrogen 18 mg/dL (8-26); Carbon Dioxide 31 mmol/L (22-30); Chloride 101 mmol/L (98-109); Estimated Glomerular Filt Rate > 60; Glucose 143 mg/dL (70-105); Ionized Calcium (POC) 1.22 mmol/L (1.11-1.31); Potassium 3.7 mmol/L (3.5-4.9); Sodium 143 mmol/L (138-146)
[2023-07-01 15:38] LABS: Alanine Aminotransferase 81 U/L (6-50); Albumin Level 4.6 g/dL (3.5-5.1); Alkaline Phosphatase 71 U/L (38-126); Anion Gap 6 mmol/L (4-12); Aspartate Amino Transferase 43 U/L (17-59); Bilirubin,Total 0.5 mg/dL (0.2-1.3); Blood Urea Nitrogen 18 mg/dL (9-20); Calcium 9.7 mg/dL (8.4-10.2); Carbon Dioxide 31 mmol/L (22-30); Chloride 104 mmol/L (98-107); Estimated Glomerular Filt Rate > 60; Glucose 143 mg/dL (65-110); Potassium 3.8 mmol/L (3.4-5.0); Sodium 141 mmol/L (137-145)
== END 2023-07-01 10:48 | disposition home or self-care (01) ==
PROVIDERS: PCP Family Medicine; Visit Provider Internal Medicine Hematology & Oncology
DX: C71.9 Malignant neoplasm of brain, unspecified (principal)
CPT/HCPCS: 36415; 80047; 80053; 85025

== ENCOUNTER 2023-08-26 12:45 | Outpatient (CLI) | payer BC, SELFPAY ==
--- NOTE | ~2023-08-26 | MR_ITS ---
EXAMINATION: MR brain/brain stem wo/w con DATE: 08/26/2023 13:25 INDICATION: Low-grade glioma of brain. TECHNIQUE: Magnetic resonance imaging (MRI) of the brain and brainstem was performed without and with 20 mL MultiHance intravenous contrast. COMPARISON: Brain MRI 06/24/2023 FINDINGS: There is a resection cavity in left frontoparietal region. There is increased T2-weighted s ignal intensity at the resection margin. There is no intracranial hemorrhage, acute infarction, or ab normal intracranial mass lesion. The ventricles are normal in size. There is mucosal thickening in th e paranasal sinuses. The orbits are normal. The mastoid air cells are normal. IMPRESSION: 1. Resection cavity in left frontoparietal region. Chronic increased T2-weighted signal intensity at the margins of the cavity may be treatment change. Comparison with preoperative imaging is recommende d. Reviewed, dictated and finalized at location A. IMPRESSION: 1. Resection cavity in left frontoparietal region. Chronic increased T2-weighte d signal intensity at the margins of the cavity may be treatment change. Compar efren with preoperative imaging is recommended.
== END 2023-08-26 12:46 ==
LOC: MICIMG 12:46
PROVIDERS: PCP Family Medicine; Visit Provider Internal Medicine Hematology & Oncology
DX: C71.9 Malignant neoplasm of brain, unspecified (principal)
CPT/HCPCS: 70553; A9577

== ENCOUNTER 2023-10-28 09:29 | Outpatient (CLI) | payer BC, SELFPAY ==
--- NOTE | ~2023-10-28 | MR_ITS ---
EXAMINATION: MR brain/brain stem wo/w con DATE: 10/28/2023 10:39 INDICATION: Low-grade glioma of brain. TECHNIQUE: Magnetic resonance imaging (MRI) of the brain and brainstem was performed without and with 20 mL MultiHance intravenous contrast. COMPARISON: Brain MRI 08/26/2023 FINDINGS: There is a resection cavity in left frontoparietal region. There is increased T2-weighted s ignal intensity at the resection margin. No abnormal contrast enhancement. There is no intracranial h emorrhage, acute infarction, or abnormal intracranial mass lesion. The ventricles are normal in size. There is mucosal thickening in the paranasal sinuses. The orbits are normal. The mastoid air cells a re normal. IMPRESSION: 1. Resection cavity in left frontoparietal region. Stable chronic increased T2-weighted signal intens ity at the margins of the cavity may be treatment change. Comparison with preoperative imaging is rec ommended. Reviewed, dictated and finalized at location A. IMPRESSION: 1. Resection cavity in left frontoparietal region. Stable chronic increased T2- weighted signal intensity at the margins of the cavity may be treatment change. Comparison with preoperative imaging is recommended.
== END 2023-10-28 09:30 | disposition home or self-care (01) ==
PROVIDERS: PCP Family Medicine; Visit Provider Nurse Practitioner Family
DX: C71.9 Malignant neoplasm of brain, unspecified (principal)
CPT/HCPCS: 70553; A9577

== ENCOUNTER 2023-11-11 09:46 | Outpatient (CLI) | payer BC, SELFPAY ==
[2023-11-11 10:23] LABS: Basophils Absolute Auto 0.1 K/mm3 (0.0-0.1); Basophils Percent Auto 0.7 % (0.2-1.2); Eosinophils Absolute Auto 0.3 K/mm3 (0-0.3); Eosinophils Percent Auto 3.5 % (0-4.4); Hematocrit 44.9 % (42.0-52.0); Hemoglobin 14.7 g/dL (14.0-18.0); Immature Granulocyte Absolute 0.06 K/mm3 (0.00-0.031); Immature Granulocyte Percent A 0.6 % (0-0.5); Lymphocytes Percent Auto 27.3 % (18.3-44.2); Mean Corpuscular HGB Conc 32.7 g/dl (32-36); Mean Corpuscular Hemoglobin 30.6 pg (26-34); Mean Corpuscular Volume 93.3 fl (80-100); Mean Platelet Volume 9.7 fl (7.4-10.4); Monocytes Absolute Auto 0.7 K/mm3 (0.1-0.6); Monocytes Percent Auto 6.9 % (2.6-8.5); Neutrophils Absolute Auto 5.8 K/mm3 (1.3-6.7); Platelet Count Result 267 k/mm3 (150-375); Red Blood Count 4.81 M/mm3 (4.6-6.20); Red Cell Distribution Width 12.7 % (11.5-14.5); White Blood Count 9.5 K/mm3 (4.5-10.0)
[2023-11-11 11:04] LABS: Alanine Aminotransferase 105 U/L (6-50); Albumin Level 4.4 g/dL (3.5-5.1); Alkaline Phosphatase 67 U/L (38-126); Anion Gap 11 mmol/L (4-12); Aspartate Amino Transferase 62 U/L (17-59); Bilirubin,Total 0.3 mg/dL (0.2-1.3); Blood Urea Nitrogen 17 mg/dL (9-20); Calcium 9.2 mg/dL (8.4-10.2); Carbon Dioxide 32 mmol/L (22-30); Chloride 99 mmol/L (98-107); Estimated Glomerular Filt Rate > 60; Glucose 142 mg/dL (65-110); Potassium 3.3 mmol/L (3.4-5.0); Sodium 142 mmol/L (137-145)
== END 2023-11-11 09:47 | disposition home or self-care (01) ==
PROVIDERS: PCP Family Medicine; Visit Provider Internal Medicine Hematology & Oncology
DX: C71.9 Malignant neoplasm of brain, unspecified (principal)
CPT/HCPCS: 36415; 80053; 85025

== ENCOUNTER 2024-01-13 09:09 | Outpatient (CLI) | payer BC, SELFPAY ==
--- NOTE | ~2024-01-13 | MR_ITS ---
EXAMINATION: MR brain/brain stem wo/w con DATE: 01/13/2024 09:51 INDICATION: Low-grade glioma of the brain. TECHNIQUE: Magnetic resonance imaging (MRI) of the brain and brainstem was performed without and with 20 mL MultiHance intravenous contrast. COMPARISON: Brain MRI 10/28/2023, 03/01/22 FINDINGS: There is a resection cavity in left frontoparietal region. There is increased T2-weighted s ignal intensity at the resection margin. No abnormal contrast enhancement. There is no intracranial h emorrhage, acute infarction, or abnormal intracranial mass lesion. The ventricles are normal in size. There is mucosal thickening in the paranasal sinuses. The orbits are normal. The mastoid air cells a re normal. IMPRESSION: 1. Resection cavity in left frontoparietal region. Stable chronic increased T2-weighted signal intens ity at the margins of the cavity may be treatment change. Comparison with preoperative imaging is rec ommended. Reviewed, dictated and finalized at location A. CLOSER IMPRESSION: 1. Resection cavity in left frontoparietal region. Stable chronic increased T2- weighted signal intensity at the margins of the cavity may be treatment change. Comparison with preoperative imaging is recommended.
== END 2024-01-13 09:10 | disposition home or self-care (01) ==
PROVIDERS: PCP Family Medicine; Visit Provider Internal Medicine Hematology & Oncology
DX: C71.9 Malignant neoplasm of brain, unspecified (principal)
CPT/HCPCS: 70553; A9577

== ENCOUNTER 2024-02-07 08:47 | Outpatient (CLI) | payer BC, SELFPAY ==
[2024-02-07 08:59] LABS: Basophils Absolute Auto 0.1 K/mm3 (0.0-0.1); Basophils Percent Auto 0.7 % (0.2-1.2); Eosinophils Absolute Auto 0.4 K/mm3 (0-0.3); Eosinophils Percent Auto 4.3 % (0-4.4); Hemoglobin 15.5 g/dL (14.0-18.0); Immature Granulocyte Absolute 0.04 K/mm3 (0.00-0.031); Immature Granulocyte Percent A 0.5 % (0-0.5); Lymphocytes Percent Auto 32.2 % (18.3-44.2); Mean Corpuscular Hemoglobin 30.4 pg (26-34); Mean Corpuscular Volume 92.2 fl (80-100); Mean Platelet Volume 9.7 fl (7.4-10.4); Monocytes Absolute Auto 0.6 K/mm3 (0.1-0.6); Monocytes Percent Auto 7.6 % (2.6-8.5); Neutrophils Absolute Auto 4.6 K/mm3 (1.3-6.7); Neutrophils Percent Auto 54.7 % (45.5-73.1); Platelet Count Result 259 k/mm3 (150-375); White Blood Count 8.4 K/mm3 (4.5-10.0)
[2024-02-07 09:02] LABS: Blood Urea Nitrogen 17 mg/dL (8-26); Carbon Dioxide 29 mmol/L (22-30); Chloride 101 mmol/L (98-109); Estimated Glomerular Filt Rate > 60; Glucose 130 mg/dL (70-105); Ionized Calcium (POC) 1.21 mmol/L (1.11-1.31); Potassium 3.5 mmol/L (3.5-4.9); Sodium 142 mmol/L (138-146)
[2024-02-07 11:01] LABS: Alanine Aminotransferase 84 U/L (6-50); Albumin Level 4.6 g/dL (3.5-5.1); Alkaline Phosphatase 76 U/L (38-126); Anion Gap 4 mmol/L (4-12); Aspartate Amino Transferase 51 U/L (17-59); Bilirubin,Total 0.6 mg/dL (0.2-1.3); Blood Urea Nitrogen 19 mg/dL (9-20); Calcium 9.7 mg/dL (8.4-10.2); Carbon Dioxide 33 mmol/L (22-30); Chloride 104 mmol/L (98-107); Estimated Glomerular Filt Rate > 60; Glucose 129 mg/dL (65-110); Potassium 3.6 mmol/L (3.4-5.0); Sodium 141 mmol/L (137-145)
== END 2024-02-07 08:48 | disposition home or self-care (01) ==
LOC: ANHLAB 08:48
PROVIDERS: PCP Family Medicine; Visit Provider Internal Medicine Hematology & Oncology
DX: C71.9 Malignant neoplasm of brain, unspecified (principal)
CPT/HCPCS: 36415; 80047; 80053; 85025

== ENCOUNTER 2024-04-06 08:57 | Outpatient (CLI) | payer BC, SELFPAY ==
--- NOTE | ~2024-04-06 | MR_ITS ---
EXAMINATION: MR brain/brain stem wo/w con DATE: 04/06/2024 09:39 INDICATION: Low-grade glioma of the brain. TECHNIQUE: Magnetic resonance imaging (MRI) of the brain and brainstem was performed without and with 20 mL MultiHance intravenous contrast. COMPARISON: Brain MRI 01/13/2024, 03/01/2022 FINDINGS: There is a resection cavity in left frontoparietal region. There is increased T2-weighted s ignal intensity at the resection margin. No abnormal contrast enhancement. There is no intracranial h emorrhage, acute infarction, or abnormal intracranial mass lesion. The ventricles are normal in size. There is mucosal thickening in the paranasal sinuses. The orbits are normal. The mastoid air cells a re normal. IMPRESSION: 1. Resection cavity in left frontoparietal region. Stable chronic increased T2-weighted signal intens ity at the margins of the cavity may be treatment change. Comparison with preoperative imaging is rec ommended. Reviewed, dictated and finalized at location A. NCIAL SERVICES REPRESENTATIVE IMPRESSION: 1. Resection cavity in left frontoparietal region. Stable chronic increased T2- weighted signal intensity at the margins of the cavity may be treatment change. Comparison with preoperative imaging is recommended.
--- OUTSIDE RECORDS SUMMARY | 2024-04-06 09:19 | XMS_ITS | Clinical Summary ---
Author Organization [facility] Address [address] [place] [address]. [place] [address] [place] [address] Care Team Providers Care Call Or Contact Centre Team Leader Name Role Phone None, Provider MD Primary Care Provider Unavaila ble Allergies No known active allergies Medications traMADol 50 MG tabletIndication s:Acute Pain < 3 Day Supply Take 1 tablet (50 mg total) by mouth every 6 (six) hours as needed for Pain. Indications : Acute Pain < 3 Day Supply 12 tablet 07/21/2020 Active Immunizations Name Administration Dates Next Due Tdap (Boostrix) 07/21/2020 Social History Tobacco Use Types Packs/Day Years Used Date Smoking Tobacco: Never Assessed Sex and Gender Information Value Date Recorded Sex Assigned at Not on file Legal Sex Male 7:12 PM CDT Gender Identity Not on file Sexual Orientation Not on file Last Filed Vital Signs Vital Sign Reading Time Taken Comments Blood Pressure 158/110 07/21/2020 9:51 AM CDT Pulse 107 07/21/2020 9:51 AM CDT Temperature 36.9 ??C (98.5 ??F) 07/21/2020 7:16 AM CD T Respiratory Rate 20 07/21/2020 9:51 AM CDT Oxygen Saturation 96% 07/21/2020 9:51 AM CDT Inhaled Oxygen Concentration - - Weight 148.7 kg (327 lb 13.2 oz) 07/21/2020 7:16 AM CDT Height 188 cm (6' 2 ) 07/21/2020 7:16 AM CDT Body Mass Index 42.09 07/21/2020 7:16 AM CDT Plan of Treatment Health Maintenance Due Date Last Done Comments Annual Physical 1989 Hepatitis C 2004 Hepatitis B Vaccines (1 of 3 - 19+ 3-dose series) 2005 COVID-19 Vaccine (2 - 2023-2 5 season) 2023 06/06/2020 Influenza Adult (#1) 2023 DTaP, Tdap and Td Vaccines ( 2 - Td or Tdap) 07/21/2030 07/21/2020 HPV Vaccines Aged Out No longer eligi ble based on patient's age to complete this topic Meningococcal B Vaccine Aged Out No l onger eligible based on patient's age to complete this topic Meningococcal Vaccine Aged Out No rosalia zhao eligible based on patient's age to complete this topic Pneumococcal Vaccine: Pediat rics (0 to 5 Years) and At-Risk Patients (6 to 64 Years) Aged Out No longer eligi ble based on patient's age to complete this topic RSV Immunizations Under 20 Months Aged Out No longer eligible based on patient's age to complete this topic Care Teams Call Or Contact Centre Team Leader Relationship Specialty Start Date End Date None, Provider, PCP - General 07/21/20
--- OUTSIDE RECORDS SUMMARY | 2024-04-06 09:19 | XMS_ITS | Clinical Summary ---
Author Organization [facility] Address [address] [facility] [place] [address] Phone Care Team Providers Care Blocking Machine Operator Name Role Phone Unavailable Primary Care Provider Unavailabl e Allergies No known active allergies Medications ergocalciferol (VITAMIN D2) 50,000 unit capsule TAKE 1 CAPSULE BY MOUTH EVERY WEEK DIRECTED 2 Active fenofibrate (LOFIBRA) 160 mg Tablet Take 160 mg by mouth daily in the morning. 2 Active folic acid (FOLVITE) 1 mg tablet Take 1 mg by mouth daily. 2 Active furosemide (LASIX) 40 mg tablet Take 40 mg by mouth daily in the morning. 2 Active lisinopriL (PRINIVIL) 40 mg tablet TAKE 1 TABLET BY MOUTH EVERY DAY DIRECTED 2 Active metFORMIN (GLUCOPHAGE XR) 500 mg Extended Release 24 hour tablet 500 mg 2 times daily with meals. 2 Active pantoprazole (PROTONIX) 40 mg Tablet, Delayed Release (E.C.) 2 Active Vitamin B-1, mononitrate, 100 mg tablet Take 1 Tablet by mouth daily. 2 Active albuterol sulfate HFA 90 mcg/actuation aerosol inhaler Take 2 Puffs by inhalation every 4 hours as needed. Active blood sugar diagnostic Strip Use to test blood sugar 4 times daily 100 Each 05/24/2022 8:53 AM CDT 3 Active lancets 33 gauge Use to test blood sugar 4 times daily 100 Each 05/24/2022 8:53 AM CDT 3 Active Blood-Glucose Meter Use to test blood sugar 4 times daily 1 Each 05/24/2022 8:53 AM CDT 3 Active naloxone (NARCAN) 4 mg/spray [place], Non-Aerosol EMERGENCY USE ONLY: Administer 1 spray (4 mg) in one nostril one time. May repeat in alternating nostrils every 2-3 min until responsive or EMS arrives. 2 Each 3 05/27/2022 3:17 PM CDT 3 Active temozolomide (TEMODAR) 5 mg capsule Take 2 capsules daily for 5 days on every 28-day cycles 10 Capsule 5 3 Active temozolomide (TEMODAR) 250 mg capsuleIndicati ons:Low grade glioma of brain (CMS/HCC) TAKE 1 CAPSULE BY MOUTH 1 TIME A DAY BEFORE BREAKFAST ON DAYS 1-5 OF A 28 DAY CYCLE. (TOTAL DAILY DOSE OF 390MG) 5 Capsule 5 3 Active atorvastatin (LIPITOR) 40 mg tablet Take 1 Tablet (40 mg) by mouth daily. 30 Tablet 3 Active diclofenac sodium (VOLTAREN) 75 mg Tablet, Delayed Release (E.C.) Take 1 Tablet (75 mg) by mouth every 12 hours. For headaches 30 Tablet 4 Active levETIRAcetam (KEPPRA) 500 mg tabletIndicatio ns:Seizure disorder (CMS/HCC) TAKE 3 TABLETS(1500 MG) BY MOUTH TWICE DAILY 540 Tablet 3 4 Active lamoTRIgine (LaMICtal) 100 mg tabletIndicatio ns:Seizure disorder (CMS/HCC) TAKE 1 TABLET(100 MG) BY MOUTH TWICE DAILY 180 Tablet 1 4 Active LORazepam (ATIVAN) 1 mg tabletIndicatio ns:Low grade glioma of brain (CMS/HCC) Take 1 tablet 1 hour prior to MRI, and 1 tablet 15 minutes prior to MRI 2 Tablet 4 Active Active Problems Problem Noted Date Diagnosed Date Sepsis 05/24/2022 Bacterial pneumonia 05/24/2022 2019 novel coronavirus disease (COVID-19) 2022 Altered mental status 05/22/2022 Aphasia 05/21/2022 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 Hypertension 05/21/2022 Type 2 diabetes mellitus with hyperglycemia 05/03 COVID-19 virus infection 05/21/2022 Diabetic ketoacidosis associ ated with type 2 diabetes mellitus 05/21/2022 Breakthrough seizure 01/17/2022 History of alcohol dependence 01/17/2022 Mixed hypercholesterolemia and hypertriglyceride tiara 05/08/2021 Vitamin D deficiency 05/08/2021 Smoker 07/18/2020 Encounters Date Type Department Care Team Description 03/10/2024 External Device Data STL ABSTRACTION Provider, Abstract 02/10/2024 Orders Only [facility] Oncology and Hematology - [place] [address] [place] [id number] Kana Rowland MD 02/07/2024 9:30 AM DRAIN TILER Office Visit [facility] Oncology and Hematology - [place] [address] [place] [address] Kana Rowland MD 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) 01/17/2024 Telephone [facility] Oncology and Hematology - [place] [address] [place] [address] Kana Rowland MD appointment change 01/13/2024 Orders Only [facility] Oncology and Hematology - [place] [address] [place] [address] Kana Rowland MD 01/12/2024 Refill [facility] Oncology and Hematology - [place] [address] [place] [address] Kana Rowland MD Seizure disorder (CMS/HCC) 01/06/2024 External Device Data STL ABSTRACTION Provider, Abstract from Last 3 Months Family History Medical History Relation Name Comments No Known Problems Brother No Known Problems Father No Known Problems Mother No Known Problems Sister 1 No Known Problems Sister 2 Relation Name Status Comments Brother Alive Father Alive Mother Alive Sister 1 Alive Sister 2 Alive Social History Tobacco Use Types Packs/Day Years Used Date Smoking Tobacco: Every Day Cigarettes 1 20 Smokeless Tobacco: Never Tobacco Cessation:Ready to Q uit: Not Asked; Counseling Given: Not Answered Alcohol Use Standard Drinks/Week Comments Not Currently 0 (1 standard drink = 0.6 oz pur e alcohol) Feeling Safe Answer Date Recorded Are you in a relationship wi th someone who hurts you emotionally and/or physically? No 05/21/2022 Sex and Gender Information Value Date Recorded Sex Assigned at Not on file 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 DRAIN TILER Gender Identity Not on file Sexual Orientation Not on file Last Filed Vital Signs Vital Sign Reading Time Taken Comments Blood Pressure 190/118 02/07/2024 9:17 AM DRAIN TILER Pulse 101 02/07/2024 9:17 AM DRAIN TILER Temperature 36.3 ??C (97.3 ??F) 02/07/2024 9:17 AM CS T Respiratory Rate 16 02/07/2024 9:17 AM DRAIN TILER Oxygen Saturation 94% 02/07/2024 9:17 AM DRAIN TILER Inhaled Oxygen Concentration - - Weight 132.9 kg (293 lb) 02/07/2024 9:17 AM DRAIN TILER Height 188 cm (6' 2 ) 05/16/2023 2:11 PM CDT Body Mass Index 37.62 05/16/2023 2:11 PM CDT Plan of Treatment Upcoming Encounters Date Type Department Care Team (Late st Contact Info) Description 04/13/2024 9:45 AM DRAIN TILER Office Visit [facility] Oncology and Hematology - [place] [address] [facility] [address] [place] [address] Kana Rowland MD [address] [facility] [address] [place] [address] 05/20/2024 11:30 AM CDT Office Visit [facility] Neurology [address] [place] [address] Damon Sunshine MD [address] [place] [address] Health Maintenance Due Date Last Done Comments DIABETES ANNUAL FOOT EXAM 2004 DIABETES ANNUAL RETINAL EXAM 2004 DIABETES MICROALBUMIN ANNUAL SCREEN 2004 HEPATITIS B VACCINES (1 of 3 - 19+ 3-dose series) 2005 DIABETES HBA1C Q 6 MONTHS 11/21/2022 05/21/2022 LDL CHOLESTEROL ANNUAL 05/22/2023 05/21/2022 INFLUENZA VACCINE (#1) 2023 02/19/2023 DTAP/TDAP/TD VACCINES (2 - T d or Tdap) 07/21/2030 07/21/2020 HPV VACCINES Aged Out No longer eligi ble based on patient's age to complete this topic Procedures Procedure Name Priority Date/Time Associated Diagnosis Comments BASIC METABOLIC PANEL Routine 02/07/2024 1:09 PM DRAIN TILER COMPREHENSIVE METABOLIC PANEL Routine 02/07/2024 11:36 AM DRAIN TILER MRI BRAIN W WO CONTRAST Routine 01/13/2024 11:13 AM DRAIN TILER HEMOGLOBIN A1C Stat 05/21/2022 2:59 PM CDT LIPID PANEL Stat 05/21/2022 2:57 PM CDT from Last 3 Months or Most Recently Relevant to Health Maintenance Results * BASIC METABOLIC PANEL (02/07/2024 1:09 PM DRAIN TILER) Blood us Kana Rowland MD CHEMISTRY ORDERABLES Final Resu lt * COMPREHENSIVE METABOLIC PANEL (02/07/2024 11:36 AM DRAIN TILER) Blood us Kana Rowland MD CHEMISTRY ORDERABLES Final Resu lt * MRI BRAIN W WO CONTRAST (01/13/2024 11:13 AM DRAIN TILER) Anatomical Region Laterality Modality Head Other us Kana Rowland MD MR ORDERABLES Final Result * (ABNORMAL) HEMOGLOBIN A1C (05/21/2022 2:59 PM CDT) HEMOGLOBIN A1C >16.7(H) <5.7 % 05/21/2022 8:50 PM CDT [facility] EST. AVG GLUCOSE, A1C >433 mg/dL 05/21/2022 8:50 PM CDT [facility] Blood Venipuncture / Unknown 05/21/2022 2:59 PM CDT 05/21/2022 3:04 PM CDT [facility] - 05/21/2022 8:50 PM CDT HGB A1C INTERPRETATION NORMAL: ? <5.7% PRE-DIABETES: 5.7 - 6.4% DIABETES: ? 6.5% OR GREATER Dylna Fulton DO CHEMISTRY ORDERABLES Final Res ult [facility] CLIA# [id number] [address] [facility] [address] [facility] [place] [address] * LIPID PANEL (05/21/2022 2:57 PM CDT) [facility] CHOLESTEROL 05/21/2022 5:59 PM CDT [facility] Comment:Unable to evaluate d ue to lipemia. TRIGLYCERIDE 05/21/2022 5:59 PM CDT [facility] Comment:Unable to evaluate d ue to lipemia. HDL 05/21/2022 5:59 PM CDT [facility] Comment: Measured HDL is not accurate when the Triglyceride value exceeds 1200. Unable to evaluate due to lipemia. Unable to evaluate due to lipemia. LDL CALCULATED 05/21/2022 5:59 PM CDT [facility] Comment:Unable to Calculate Result NON-HDL CHOLESTEROL 05/21/2022 5:59 PM CDT [facility] Comment:Unable to Calculate Result Blood Venipuncture / Unknown 05/21/2022 2:57 PM CDT 05/21/2022 3:04 PM CDT [facility] - 05/21/2022 5:59 PM CDT TOTAL CHOLESTEROL ??mg/dL ??Desirable <200 ??Borderline high 200-239 ??High >=240 TRIGLYCERIDES ??mg/dL ??Normal <150 ??Borderline high 150-199 ??High 200-499 ??Very high >=500 HDL CHOLESTEROL ??mg/dL ??Low <40 ??Normal 40-59 ??Desirable >=60 NON HDL CHOLESTEROL mg/dL ??Optimal <130 ??Near Optimal 130-159 ??Borderline High 160-189 ??Very High >=190 CALCULATED LDL mg/dL ??LDL <70, OPTIMAL if have Atherosclerotic cardiovascular disease (ASCVD) ??or intermediate or higher (>7.5%) 10 year risk of ASCVD including most adults ??with diabetes. ??LDL <100, Optimal in adult patients with low (<7.5%) 10 year ASCVD risk ??LDL 100-160, Suboptimal ??LDL >160, High ??LDL >190, Very high ATPIII Guidelines Reference Ranges for Lipid Panels (NCEP/AMA) . Dylan Fulton DO CHEMISTRY ORDERABLES Final Res ult Performing Organization Address City/State/[facility] Co de Phone Number [facility]# [id number] [address] [place] [place] [address] from Last 3 Months or Most Recently Relevant to Health Maintenance Insurance [facility] FEDERAL [facility] FEDERAL RX [facility] [employer] (INTERNAL) [facility] Internal Plans Advance Directives For more information, please contact: [phone] * Full Code (Latest Code Status on File) Date Activated Date Inactivated Comments 05/21/2022 3:08 PM 05/27/2022 6:46 PM
--- OUTSIDE RECORDS SUMMARY | 2024-04-06 09:19 | XMS_ITS | Encounter Summary ---
Author Organization [facility] [employer] [facility] Address [address] [place] [address] Care Team Providers Care Furnace Operator Oil Or Gas Name Role Phone Unavailable Primary Care Provider Unavailabl e Reason for Visit * Reason Comments Med Refill Encounter Details Date Type Department Care Team ([facility] Contact Info) Description 05/19/2022 Refill [facility] Oncology and Hematology [place] [address] [place] [address] Kana Rowland MD [address] [facility] [address] [place] [address] Social History Tobacco Use Types Packs/Day Years Used Date Smoking Tobacco: Every Day Cigarettes 1 20 Smokeless Tobacco: Never Alcohol Use Standard Drinks/Week Comments Yes 0 (1 standard drink = 0.6 oz pur e alcohol) everyday, liquor Feeling Safe Answer Date Recorded Are you in a relationship wi th someone who hurts you emotionally and/or physically? No 05/21/2022 Sex and Gender Information Value Date Recorded Sex Assigned at Not on file 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 PSYCHOLOGICAL EXAMINER Gender Identity Not on file Sexual Orientation Not on file COVID-19 Exposure Response Date Recorded In the last 10 days, have yo u been in contact with someone who was confirmed or suspected to have Coronavirus/COVID-19? No / Unsure 05/21/2022 11:39 AM CDT documented as of this encounter Plan of Treatment Upcoming Encounters Date Type Department Care Team (Late Contact Info) Description 04/13/2024 9:45 AM PSYCHOLOGICAL EXAMINER Office Visit [facility] Oncology and Hematology [place] [address] [place] [address] Kana Rowland MD [address] [facility] [address] [place] [address] 05/20/2024 11:30 AM CDT Office Visit [facility] Neurology [address] [place] [address] Damon Sunshine MD [address] [place] [address] documented as of this encounter Visit Diagnoses Not on filedocumented in this encounter Additional Health Concerns Infection Onset Date Last Indicated Resolved Time COVID-19 Comment:Symptom onset: 05/20 Positive test: 05/21 Immunocompromised-chemo 05/20/2022 05/21/2022 08/20/2022 1:16 AM C DT documented as of this encounter
== END 2024-04-06 08:58 | disposition home or self-care (01) ==
PROVIDERS: PCP Family Medicine; Visit Provider Internal Medicine Hematology & Oncology
DX: C71.9 Malignant neoplasm of brain, unspecified (principal); Z98.890 Other specified postprocedural states
CPT/HCPCS: 70553; A9577

== ENCOUNTER 2024-04-13 09:35 | Outpatient (CLI) | payer BC, SELFPAY ==
[2024-04-13 09:44] LABS: Basophils Absolute Auto 0.1 K/mm3 (0.0-0.1); Basophils Percent Auto 0.7 % (0.2-1.2); Eosinophils Absolute Auto 0.3 K/mm3 (0-0.3); Eosinophils Percent Auto 4.1 % (0-4.4); Hematocrit 45.8 % (42.0-52.0); Hemoglobin 15.3 g/dL (14.0-18.0); Immature Granulocyte Absolute 0.03 K/mm3 (0.00-0.031); Immature Granulocyte Percent A 0.4 % (0-0.5); Lymphocytes Absolute Auto 2.52 K/mm3 (0.9-3.2); Lymphocytes Percent Auto 31.2 % (18.3-44.2); Mean Corpuscular HGB Conc 33.4 g/dl (32-36); Mean Corpuscular Hemoglobin 30.5 pg (26-34); Mean Corpuscular Volume 91.4 fl (80-100); Mean Platelet Volume 9.5 fl (7.4-10.4); Monocytes Absolute Auto 0.6 K/mm3 (0.1-0.6); Monocytes Percent Auto 7.6 % (2.6-8.5); Neutrophils Absolute Auto 4.5 K/mm3 (1.3-6.7); Platelet Count Result 274 k/mm3 (150-375); Red Blood Count 5.01 M/mm3 (4.6-6.20); Red Cell Distribution Width 12.1 % (11.5-14.5); White Blood Count 8.1 K/mm3 (4.5-10.0)
[2024-04-13 09:48] LABS: Blood Urea Nitrogen 15 mg/dL (8-26); Carbon Dioxide 31 mmol/L (22-30); Chloride 100 mmol/L (98-109); Estimated Glomerular Filt Rate > 60; Glucose 121 mg/dL (70-105); Ionized Calcium (POC) 1.19 mmol/L (1.11-1.31); Potassium 3.8 mmol/L (3.5-4.9); Sodium 141 mmol/L (138-146)
--- OUTSIDE RECORDS SUMMARY | 2024-04-13 10:06 | XMS_ITS | Encounter Summary ---
Author Organization [facility] [facility] Address [address] [place] [address] Care Team Providers Care Return Agent Airport Name Role Phone Unavailable Primary Care Provider Unavailabl e Encounter Details Date Type Department Care Team (Late st Contact Info) Description 04/13/2024 9:45 AM BOOKKEEPING MACHINE MECHANIC Office Visit [facility] Oncology and Hematology - [place] [address] [facility] [address] [place] [address] Kana Rowland MD [address] [facility] [address] [place] [address] Arrived Social History Tobacco Use Types Packs/Day Years [...] on file 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 BOOKKEEPING MACHINE MECHANIC Gender Identity Not on file Sexual Orientation Not on file documented as of this encounter Last Filed Vital Signs Vital Sign Reading Time Taken Comments Blood Pressure 149/95 04/13/2024 10:02 AM BOOKKEEPING MACHINE MECHANIC Pulse 104 04/13/2024 9:57 AM BOOKKEEPING MACHINE MECHANIC Temperature 36.8 C (98.2 F) 04/13/2024 9:57 AM BOOKKEEPING MACHINE MECHANIC Respiratory Rate 16 04/13/2024 9:57 AM BOOKKEEPING MACHINE MECHANIC Oxygen Saturation 95% 04/13/2024 9:57 AM BOOKKEEPING MACHINE MECHANIC Inhaled Oxygen Concentration - - Weight 129.4 kg (285 lb 3.2 oz) 04/13/2024 9:57 AM BOOKKEEPING MACHINE MECHANIC Height - - Body Mass Index 36.62 05/16/2023 2:11 PM CDT documented in this encounter Plan of Treatment Upcoming Encounters Date Type Department Care Team (Late st Contact Info) Description 05/20/2024 11:30 AM CDT Office Visit [facility] Neurology [address] [place] [address] Damon Sunshine MD [address] [place] [address] documented as of this encounter Visit Diagnoses Not on filedocumented in this encounter
--- OUTSIDE RECORDS SUMMARY | 2024-04-13 10:06 | XMS_ITS | Data Portability ---
Author Organization [place] - [facility] [email or web address], Main Office Address [address] [place] [address] Care Team Providers Care Crystal Syrup Maker Name Role Phone ROMEL FRIAS Primary Care Provider Assessment Encounter Date Assessment Date Assessment LastModified by Organization Details LastModified Time 05/29/2022 05/29/2022 The patient gave verbal consent using TelePhonic services and the consent is documented in the medical record prior to using the service. The patient has been informed of what a TeleMedicine visit is. Patient is located at home. Provider is located at office. Names and roles of persons in addition to the patient and provider participating in telemedicine services include staff, mom. The patient had a 22 minute TeleMedicine consultation via phone call to discuss the following: [email or web address] Not available 05/29/2022 10:44:01 02/18/2023 02/18/2023 37 yo M with - WELL ADULT VISIT - HTN - DM II - HLD - HTG - GERD - PERIPHERAL EDEMA - SEIZURE DISORDER - VIT D DEFICIENCY - OBESITY I - ALCOHOL DEPENDENCE - SMOKING - H/O ASTROCYTOMA OF BRAIN (S/p surgery, chemo and radiation) HbA1c: 6.1(10/31/20) MRI brain w/wo: 02/11/23. MRI brain w/wo: 08/28/22. D/w pt and his mom in detail about his findings, recent labs & imagines and further plan of care. Will do routine labs. Meds as directed. Diet and exercise explained in detail. Advised pt to cut down on alcohol & smoking and options for him. F/u with Ophtho as per schedule. Cont f/u with Onco at [facility] as per schedule. Cont f/u with Neuro at [facility] as per schedule. HM: Flu - 02/18/23. Tdap - On next visit. Gardasil - Pt declined. F/u in 2 weeks. Annual labs in 02/24. [email or web address] Not available 02/18/2023 11:14:07 04/15/2023 04/15/2023 37 yo M with - HTN - DM II - HLD - HTG - GERD - PERIPHERAL EDEMA - SEIZURE DISORDER - VIT D DEFICIENCY - OBESITY I - ALCOHOL DEPENDENCE - SMOKING - H/O ASTROCYTOMA OF BRAIN (S/p surgery, chemo and radiation) HbA1c: 6.1(10/31/20) MRI brain w/wo: 02/11/23. MRI brain w/wo: 08/28/22. D/w pt and his mom in detail about his findings, recent labs & imagines and further plan of care. Staff to call hospital about his labs. Will call pt with updates. All meds verified with pt and mom. Meds as directed. Diet and exercise explained in detail. Advised pt to cut down on alcohol & smoking and options for him. F/u with Ophtho as per schedule. Cont f/u with Onco at [facility] as per schedule. Cont f/u with Neuro at [facility] as per schedule. HM: Flu - 02/18/23. Tdap - 2017. Gardasil - Pt declined. F/u in 3 months. Annual labs Or A1c, lipids before next visit. Annual labs in 02/24. [email or web address] Not available 04/15/2023 09:51:51 Plan of Treatment Reminders Order Date Submit Date Provider Last Modified By Organization Details Last Modified Time Details Appointments Follow Up 15 2024 11:15A Royce Frias MD Not available Not available Not available Lab vitamin B12 + folate, serum or blood [address] (Lab), [address] [place], [address], 04/29/2023 08:47:06 vitamin D, 25-hydrox y, total, serum [address] (Lab), [address] [place], [address], 04/29/2023 08:47:06 magnesium , serum or plasma [address] (Lab), [address] [place], [address], 04/29/2023 08:47:06 H pylori igm+igg+i ga Ab, serum [address] (Lab), [address] [place], [address], 04/29/2023 08:47:06 glycohemo globin, total, blood [address] (Lab), [address] [place], [address], 04/29/2023 08:47:06 microalbu min, urine [address] (Lab), [address] [place], [address], 04/29/2023 08:47:06 CMP, serum or plasma [address] (Lab), [address] [place], [address], 04/29/2023 08:47:05 CBC w/ auto diff [address] (Lab), [address] [place], [address], 04/29/2023 08:47:05 lipid panel, blood [address] (Lab), [address] [place], [address], 04/29/2023 08:47:05 TSH, serum, reflex free T4 [address] (Lab), [address] [place], [address], 04/29/2023 08:47:05 PSA, serum or plasma [address] (Lab), [address] [place], [address], 04/29/2023 08:47:05 urinalysi s complete, reflex culture [address] (Lab), [address] [place], [address], 04/29/2023 08:47:05 lipid panel, serum [address] (Lab), [address] [place], [address], 07/10/2023 12:18:35 glycohemo globin, total, blood 2023 024 [email or web address] [facility] (Lab), [address] [place], [address], 08/02/2023 12:43:57 Referral endocrino logy referral - Please call pt to schedule appt. Thank you 2022 023 [email or web address] Raine Pearl MD, [address],, [facility], [place], [address], 07/18/2022 15:54:48 Procedures None recorded. Surgeries None recorded. Imaging None recorded. Medication Orders cefdinir 300 mg capsule 2022 023 [email or web address] [facility], [address] [place], [place], [id number], 12/10/2022 10:41:39 hydrocodo ne 5 mg-acetam inophen 325 mg tablet 2022 023 [facility]97[facility], [address] [place], [id number], 12/10/2022 10:44:02 hydroxyzi ne HCl 50 mg tablet 2022 023 [email or web address] [facility] #82841, [address], [place], [place], [id number], 12/10/2022 10:45:36 fenofibra te 160 mg tablet 2022 023 [facility] #85849, [address] [facility], [place], [place], [id number], 12/10/2022 10:46:18 lisinopri l 40 mg tablet 2022 023 [facility] #93347, [address] [address] [facility], [place], [place], [id number], 12/10/2022 10:46:17 atorvasta tin 40 mg tablet 2022 023 [facility] #52869, [address], [place], [place], [id number], 12/10/2022 10:46:19 folic acid 1 mg tablet 2022 023 [facility] #71208, [address] [facility], [place], [place], [id number], 12/10/2022 10:46:15 pantopraz ole 40 mg tablet,de layed release 2022 023 [facility] #91568, [address] [facility], [place], [place], [id number], 12/10/2022 10:46:17 metformin ER 500 mg tablet,ex tended release 24 hr 2022 023 [facility] #46511, [address], [place], [place], [id number], 12/10/2022 10:46:18 furosemid e 40 mg tablet 2022 023 [facility] #11868, [address], [place], [place], [id number], 12/10/2022 10:46:14 fenofibra te 160 mg tablet 2023 024 [facility] #01089, [address], [place], [place], [id number], 04/15/2023 09:43:10 lisinopri l 40 mg tablet 2023 024 [facility] #83158, [address], [place], [place], [id number], 04/15/2023 09:43:11 atorvasta tin 40 mg tablet 2023 024 [facility] #05710, [address] [address], [place], [place], [id number], 04/15/2023 09:43:07 folic acid 1 mg tablet 2023 024 [facility] #02329, [address], [place], [place], [id number], 04/15/2023 09:43:08 ergocalci ferol (vitamin D2) 1,250 mcg (50,000 unit) capsule 2023 024 [facility] #59748, [address] [facility], [place], [place], [id number], 04/15/2023 09:43:07 pantopraz ole 40 mg tablet,de layed release 2023 024 [facility] #70253, [address] [address], [place], [place], [id number], 04/15/2023 09:43:11 metformin ER 500 mg tablet,ex tended release 24 hr 2023 [facility] #93589, [address] [address] [facility], [place], [place], [id number], 04/15/2023 09:43:11 furosemid e 40 mg tablet 2023 024 [facility] #44727, [address], [place], [place], [id number], 04/15/2023 09:43:08 Patient TargetsNo targets recorded. Patient Instructions Encounter Date Encounter Id Patient Instructions Last Modified By Organization Details Last Modified Time 05/29/2022 [id number] D/w pt's mom abo ut his findings and further plan of care. Hospital records reviewed with her. Explained about different options for her and advised to get checked in ED; but mom declined. Mom wants to try few more days with Antibitoics and see how he does. Advised mom to contact Dr. Rowland's office about this too. Will refer pt to Endo. Meds as directed. OTC symptomatic Rx explained in detail. Very good liquid intake explained. DM education given and call us if any concerns. Educated about alarming symptoms to monitor at home and call us back Or get checked in ED if any concerns. F/u as directed. Not available 05/29/2022 11:16:20 Due to the COVID-19 (Novel Coronavirus) pandemic, it is within this context (and with the understanding that this method of patient encounter is in the patient s best interest as well as the health and safety of other patients and the public) that [facility] is being provided for this patient encounter rather than a vavm-bd-lrgj visit. This patient encounter is appropriate at this time. This patient has been advised of the potential risks and limitations of this mode of treatment (including, but not limited to, the absence of in-person examination) and has agreed to be treated in a remote fashion despite these risks. Any and all of the patient s /patient s family s questions on this issue have been answered, and I have made no promises or guarantees to the patient. The patient has also been advised to contact this office for worsening conditions or problems, and seek emergency medical treatment and/or call 911 if the patient deems either necessary. HPI and/or vitals, if listed, were provided by the patient. [email or web address] Not available 05/29/2022 09:48:41 Reason for Referral Endocrinology Referral for D iabetic ketoacidosis Please call pt to schedule appt. Thank you Referring Physician: Romel Frias, Family Medicine, Encounter Date: 05/29/2022 Results Created Date Observation Date Name Description Value Unit Range Abnormal Flag Note LastModifiedBy Organization Detail LastModifiedTime 08/29/1908/28/2022 MRI, brain stem, w/wo contr ast No observ ation record ed. [address] [address], [place], [address], 12/10/2022 10:38:39 12/04/19 23 12/03/2022 MRI, brain + brain stem, w/wo contr ast No observ ation record ed. [address] [address], [place], [address], 12/10/2022 10:38:39 02/12/20 23 02/11/2023 MRI, brain + brain stem, w/wo contr ast No observ ation record ed. [address] [address], [place], [address], 02/18/2023 10:52:47 04/15/19 24 04/15/2023 MRI, brain + brain stem, w/wo contr ast No observ ation record ed. [address] [address], [place], [address], 04/15/2023 12:38:11 06/24/19 24 06/24/2023 MRI, brain + brain stem, w/wo contr ast No observ ation record ed. [address] [address], [place], [address], 06/24/2023 14:45:22 08/26/19 24 08/26/2023 XR, chest No observ ation record ed. [email or web address] [facility] [address], [place], [address], 08/27/2023 09:29:29 10/28/19 24 10/28/2023 MRI, brain + brain stem, w/wo contr ast No observ ation record ed. [address], [place], [address], 10/28/2023 17:16:14 01/13/20 24 01/13/2024 MRI, brain + brain stem, w/wo contr ast No observ ation record ed. [address], [place], [address], 01/13/2024 12:28:05 04/06/19 25 04/06/2024 MRI, brain + brain stem, w/wo contr ast No observ ation record ed. [address], [place], [address], 04/06/2024 12:52:16 Result Notes None recorded. Problems Name Problem SNOMED Code Status Onset Date Resolution Date Notes Provider Name and Address Organization Details Recorded Time Seizure disorder 845616124 Active 2021 Not Available [facility] 3 09:19:41 Alcohol abuse 31365728 Active 2020 Not Available [facility] 3 09:19:41 Alcohol withdrawa l 992163615 Active 2021 Not Available [facility] 3 09:19:41 Claustrop hobia 97254865 Active 2021 Not Available [facility] 3 09:19:41 Astrocyto ma of brain 987329212 Active 2021 Not Available [facility] 3 09:19:41 Adult health examinati on Active 2021 Not Available [facility] 3 09:19:42 Spleen tender 701786117 Completed Not Available [facility] 3 09:19:42 Screening for disorder Active 2021 Not Available [facility] 3 09:19:42 Vitamin D deficienc y 93809562 Active 2021 Not Available [facility] 3 09:19:42 Hypertens willy disorder 76236720 Active 2020 Not Available [facility] 3 09:19:42 Obesity 253618696 Active 2020 Not Available [facility] 3 09:19:42 Pain of left knee joint 43156693773 4107 Active 2021 Not Available [facility] 3 09:19:43 Hyperlipi demia 50799830 Active 2021 Not Available [facility] 3 09:19:43 Dyspnea on exertion 66961411 Active 2020 Not Available [facility] 3 09:19:43 Alcohol dependenc e 03291897 Active 2021 Not Available [facility] 3 09:19:43 Muscle pain 90796924 Completed Not Available [facility] 3 09:19:43 Liver enzymes level above reference range 251895450 Active 2021 Not Available [facility] 3 09:19:43 Smoker 71130547 Active 2020 Not Available [facility] 3 09:19:44 Fatigue 44123776 Active 2022 Romel Frias MD [address], [place], [address] , [facility] [employer] 3 09:49:25 Type 2 diabetes mellitus without complicat ion 820232404 Active 2022 Romel Frias MD [address], [place], [address] , [facility] 3 09:50:05 Pneumonia 630769668 Active 2022 Romel Frias MD [address], [place], [address] , [facility] [employer] [facility] 3 10:33:52 Anxiety disorder 990000544 Active 2022 Romel Frias MD [address] [address], [place], [address] , [facility] [employer] [facility] [employer] [facility] 3 10:35:23 Post-acut e COVID-19 8518219793 Active 2022 Romel Frias MD [address], [address] , [facility] [employer] [facility] [employer] [facility] 3 11:15:08 Hypertrig lyceridem ia 278450566 Active 2022 Romel Frias MD [address], [address] , [facility] [employer] [facility] [employer] [facility] 3 10:42:02 Cigarette smoker 37635202 Active 2022 Romel Frias MD [address], [address] , [facility] [employer] [facility] [employer] [facility] 3 10:54:57 History of alcohol abuse 557426196 Active 2022 Romel Frias MD [address], [address] , [facility] [employer] [facility] [employer] [facility] 3 10:55:17 Gastroeso phageal reflux disease without esophagit is 379916190 Active 2022 Romel Frias MD [address], [address] , [facility] [employer] [facility] [employer] [facility] 3 10:55:17 Congestiv e heart failure 63267296 Active 2022 Romel Frias MD [address], [address] , [facility] 3 10:55:17 Problem Notes None recorded. Procedures Surgical History Date Name Laterality Status Provider Name and Address Organization Details Recorded Time 3 Smoking Cessation completed Romel Frias MD [address], [place], [address], [employer] 02/18/2023 10:53:05 Smoking Cessation completed Romel Frias MD [address], [place], [address], [facility] [employer] [facility] [employer] 12/10/2022 10:47:50 Imaging Results Imaging Date Name Status LastModified by Organiz ation Details LastModified Time 08/28/2022 MRI, brain stem, w/wo contrast completed [address] [facility], [place], [address], 12/10/2022 10:38:39 12/03/2022 MRI, brain + brain stem, w/wo contrast completed [address] [place] [address], [address], 12/10/2022 10:38:39 02/11/2023 MRI, brain + brain stem, w/wo contrast completed [address] [facility], [place], [address], 02/18/2023 10:52:47 04/15/2023 MRI, brain + brain stem, w/wo contrast completed [address] [facility], [place], [address], 04/15/2023 12:38:11 06/24/2023 MRI, brain + brain stem, w/wo contrast completed [address] [facility], [place], [address], 06/24/2023 14:45:22 08/26/2023 XR, chest completed [email or web address] [facility] [address], [place], [address], 08/27/2023 09:29:29 10/28/2023 MRI, brain + brain stem, w/wo contrast completed [address], [place], [address], 10/28/2023 17:16:14 01/13/2024 MRI, brain + brain stem, w/wo contrast completed [address], [place], [address], 01/13/2024 12:28:05 04/06/2024 MRI, brain + brain stem, w/wo contrast completed [address], [place], [address], 04/06/2024 12:52:16 Procedure Notes None recorded. Medical Equipment None Reported. Allergies No known drug allergies Medications Name Sig Start Date Stop Date Status Note LastModified by Organization Details LastModified Time furosemide 40 mg tablet TAKE 1 TABLET BY MOUTH EVERY DAY IN THE MORNING active Not Available Not Available No t Available atorvastat in 40 mg tablet TAKE 1 TABLET BY MOUTH EVERY DAY AT BEDTIME active Not Available Not Available No t Available atorvastat in 20 mg tablet TAKE 1 TABLET BY MOUTH EVERY DAY AT BEDTIME 2023 active Not Available Not Available Not Avai lable levetirace stinson 500 mg tablet active Not Available Not Available Not Available hydrocodon e 5 mg-acetami nophen 325 mg tablet TAKE 1 TABLET BY MOUTH EVERY 6 HOURS NEEDED FOR MODERATE PAIN 12/10 completed Not Available Not Available Not Available lisinopril 20 mg tablet TAKE 1 TABLET BY MOUTH EVERY DAY DIRECTED 05/08 completed Not Available Not Available Not Available ondansetro n HCl 4 mg tablet TAKE 1 TABLET BY MOUTH EVERY 8 HOURS NEEDED FOR NAUSEA 12/10 completed Not Available Not Available Not Available thiamine HCl (vitamin B1) 100 mg tablet TAKE 1 TABLET BY MOUTH EVERY DAY active Not Available Not Available No t Available temozolomi de 250 mg capsule 12/10 completed Not Available Not Available Not Available hydroxyzin e HCl 50 mg tablet TAKE 1 TABLET BY MOUTH EVERY 6 HOURS NEEDED 2023 active Not Available Not Available Not Avai lable sulfametho xazole 800 mg-trimeth oprim 160 mg tablet 05/29 completed Not Available Not Available Not Available aspirin 81 mg tablet,del ayed release TAKE 1 TABLET BY MOUTH DAILY AFTER A MEAL 01/17 completed Not Available Not Available Not Available lamotrigin e 25 mg tablet 12/10 completed Not Available Not Available Not Available Mobic 15 mg tablet Take 1 tablet every day by oral route in the morning for 30 days. 11/07 completed Not Available Not Available Not Available alprazolam 0.5 mg tablet Take 1 tablet as needed by oral route as directed for 1 day. 05/29 completed Take 30-45 mins before MRI. Ok to take it after 1 hr if needed. Not Available Not Available Not Available chlordiaze poxide 25 mg capsule Take 1 capsule every 8 hours by oral route as needed for 10 days. 05/29 completed Not Available Not Available Not Available levetirace stinson 250 mg tablet TAKE 4 TABLETS BY MOUTH TWICE DAILY DIRECTED 04/15 completed Not Available Not Available Not Available dexamethas one 1 mg tablet TAKE 2 TABLETS BY MOUTH TWICE DAILY FOR 2 DAYS 05/29 completed Not Available Not Available Not Available amlodipine 10 mg tablet TAKE 1 TABLET BY MOUTH EVERY DAY DIRECTED active Not Available Not Available No t Available cephalexin 500 mg capsule 12/10 completed Not Available Not Available Not Available pantoprazo le 40 mg tablet,del ayed release TAKE 1 TABLET BY MOUTH EVERY DAY active Not Available Not Available No t Available dexamethas one 4 mg tablet TAKE 1 TABLET BY MOUTH TWICE DAILY FOR 2 DAYS 05/29 completed Not Available Not Available Not Available lisinopril 10 mg tablet Take 1 tablet every day by oral route in the morning for 30 days. active Not Available Not Available No t Available temozolomi de 5 mg capsule 12/10 completed Not Available Not Available Not Available lisinopril 30 mg tablet TAKE 1 TABLET BY MOUTH EVERY DAY DIRECTED active Not Available Not Available No t Available diclofenac sodium 75 mg tablet,del ayed release TAKE 1 TABLET BY MOUTH EVERY 12 HOURS NEEDED active Not Available Not Available No t Available folic acid 1 mg tablet TAKE 1 TABLET BY MOUTH EVERY DAY active Not Available Not Available No t Available hydroxyzin e HCl 25 mg tablet 12/10 completed Not Available Not Available Not Available furosemide 20 mg tablet TAKE 1 TABLET BY MOUTH EVERY DAY IN THE MORNING active Not Available Not Available No t Available ergocalcif mahendra (vitamin D2) 1,250 mcg (50,000 unit) capsule TAKE 1 CAPSULE BY MOUTH EVERY WEEK DIRECTED active Not Available Not Available No t Available lorazepam 1 mg tablet TAKE 1 TABLET BY MOUTH 20 MINUTES BEFORE MRI active Not Available Not Available No t Available albuterol sulfate HFA 90 mcg/actuat ion aerosol inhaler INHALE 2 PUFFS BY MOUTH EVERY 6 HOURS FOR 15 DAYS NEEDED active Not Available Not Available No t Available lisinopril 40 mg tablet TAKE 1 TABLET BY MOUTH EVERY DAY DIRECTED active Not Available Not Available No t Available cefdinir 300 mg capsule TAKE 1 CAPSULE BY MOUTH EVERY 12 HOURS FOR 7 DAYS DIRECTED 12/10 completed Not Available Not Available Not Available metformin ER 500 mg tablet,ext ended release 24 hr TAKE 1 TABLET BY MOUTH TWICE DAILY AFTER MEALS active Not Available Not Available No t Available lamotrigin e 100 mg tablet active Not Available Not Available Not Available cyclobenza elton 5 mg tablet TK 1 T PO QHS active Not Available Not Available No t Available fenofibrat e 160 mg tablet TAKE 1 TABLET BY MOUTH EVERY DAY IN THE MORNING active Not Available Not Available No t Available thiamine HCl (vitamin B1) 2021 active Not Available Not Available Not Avai lable temozolomi de 140 mg capsule 12/10 completed Not Available Not Available Not Available temozolomi de 180 mg capsule 12/10 completed Not Available Not Available Not Available Vitamin B-1 (mononitra te) 100 mg tablet TAKE 1 TABLET BY MOUTH EVERY DAY active Not Available Not Available No t Available OneTouch Verio test strips active Not Available Not Available Not Available icosapent ethyl 1 gram capsule Take 2 capsules twice a day by oral route with meals for 90 days. 01/17 completed Not Available Not Available Not Available naloxone 4 mg/actuati on nasal spray 12/10 completed Not Available Not Available Not Available Tech[employer] Pen Needle 32 gauge x active Not Available Not Available Not Available Basaglar LollyikPen U-100 Insulin 100 unit/mL (3 mL) [facility] 12/10 completed Not Available Not Available Not Available OneTouch Delica Plus Lancet 33 gauge active Not Available Not Available Not Available Vitals Date Recorded Body mass index (BMI) Body height Oxygen saturation Oxygen saturation in Arterial blood by Pulse oximetry Heart rate Respiratory rate Body temperature Body weight Systolic blood pressure Diastolic blood pressure Provider Name and Address Organization Details Last Updated DateTime 3 38.5 kg/m2 187.96 cm 97 % 97 % 106 /min 16 /min 97.9 [degF] 860844. 71 g 152 mm[Hg] 88 mm[Hg] Not Available [employer] 3 09:15:51 Date Recorded Body height Body mass index (BMI) Body weight Body temperature Heart rate Systolic blood pressure Diastolic blood pressure Provider Name and Address Organization Details Last Updated DateTime 3 187.96 cm 33.8 kg/m2 892351. 59 g 97.7 [degF] 76 /min 144 mm[Hg] 84 mm[Hg] Yadi Jimenez [facility] [facility] 3 10:36:40 Date Recorded Oxygen saturation Oxygen saturation in Arterial blood by Pulse oximetry Provider Name and Address Organization Details Last Updated DateTime 12/10/2022 96 % 96 % Romel Frias MD [address], [address], [address], [facility] 12/10/2022 10:46:17 Date Recorded Body height Body mass index (BMI) Body weight Body temperature Heart rate Respiratory rate Oxygen saturation Oxygen saturation in Arterial blood by Pulse oximetry Systolic blood pressure Diastolic blood pressure Provider Name and Address Organization Details Last Updated DateTime 3 187.96 cm 34.7 kg/m2 681751. 94 g 98 [degF] 78 /min 18 /min 98 % 98 % 140 mm[Hg] 80 mm[Hg] Andres Gaitan [facility] 3 10:51:11 Date Recorded Body height Body mass index (BMI) Body weight Body temperature Oxygen saturation Oxygen saturation in Arterial blood by Pulse oximetry Systolic blood pressure Diastolic blood pressure Provider Name and Address Organization Details Last Updated DateTime 4 187.96 cm 36.6 kg/m2 939245. 18 g 98 [degF] 98 % 98 % 128 mm[Hg] 80 mm[Hg] Andres Gaitan [facility] 4 09:34:12 Date Recorded Heart rate Provider Name an d Address Organization Details Last Updated DateTime 04/15/2023 94 /min Royce Michelle [address] [facility] [address], [place], [address], [place] [facility] [employer] [facility] 04/15/2023 09:35:12 Social History Question Answer Notes LastModified by Organizat ion Details LastModified Time Tobacco Smoking Status Current Every Day Smoker Not Available [facility] 05/02/2022 09:13:38 Do You Have An Advance Directive? No MIGRATION.[id number] 8916 Information not available 05/02/2022 What Is Your Level Of Alcohol Consumption? Moderate MIGRATION.138515 8190 Information not available 05/02/2022 Do You Wear A Helmet When Biking? No MIGRATION.332878 5790 Information not available 05/02/2022 What Is Your Level Of Caffeine Consumption? None MIGRATION.812738 4718 Information not available 05/02/2022 In The 14 Days Before Symptom Onset, Have You Had Close Contact With A Laboratory-confir med COVID-19 While That Case Was Ill? No MIGRATION.790511 8449 Information not available 05/02/2022 In The 14 Days Before Symptom Onset, Have You Had Close Contact With A Person Who Is Under Investigation For COVID-19 While That Person Was Ill? No MIGRATION.145843 1413 Information not available 05/02/2022 What Type Of Diet Are You Following? REGULAR MIGRATION.363831 1419 Information not available 05/02/2022 What Is The Highest Grade Or Level Of School You Have Completed Or The Highest Degree You Have Received? 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 No MIGRATION.127353 9361 Information not available 05/02/2022 Are There Any Guns Present In Your Home? No MIGRATION.503966 0276 Information not available 05/02/2022 Do You Use Insect Repellent Routinely? No MIGRATION.154082 4128 Information not available 05/02/2022 Do You Have A Medical Power Of School Bus Driver/Custodian? No MIGRATION.006182 1549 Information not available 05/02/2022 Have You Ever Been Counseled For Unhealthy Alcohol Use? No MIGRATION.395549 5009 Information not available 05/02/2022 What Is Your Relationship Status? Single MIGRATION.812681 9487 Information not available 05/02/2022 Do You Use Your Seat Belt Or Car Seat Routinely? Yes MIGRATION.933529 6793 Information not available 05/02/2022 Do You Have Smoke And Carbon Monoxide Detectors In Your Home? Yes MIGRATION.350443 6388 Information not available 05/02/2022 Are You Passively Exposed To Smoke? Yes MIGRATION.835629 4227 Information not available 05/02/2022 Are There Any Smokers In Your House? No MIGRATION.660204 7708 Information not available 05/02/2022 How Much Tobacco Do You Smoke? 1 PPD MIGRATION.287370 6386 Information not available 05/02/2022 Do You Participate In Social Media? No MIGRATION.989327 9629 Information not available 05/02/2022 Do You Feel Stressed (tense, Restless, Nervous, Or Anxious, Or Unable To Sleep At Night)? [id number] MIGRATION.052685 6835 Information not available 05/02/2022 Do You Use Any Illicit Or Recreational Drugs? No MIGRATION.391639 2558 Information not available 05/02/2022 Do You Use Sunscreen Routinely? No MIGRATION.644722 7499 Information not available 05/02/2022 Has Tobacco Cessation Counseling Been Provided? No MIGRATION.219371 8257 Information not available 05/02/2022 Have You Recently Traveled Abroad? No MIGRATION.469981 3803 Information not available 05/02/2022 Are You Currently In School? No MIGRATION.555196 0559 Information not available 05/02/2022 Do You Have Any Dietary Restrictions? No MIGRATION.832848 5008 Information not available 05/02/2022 Do You Or Have You Ever Used Any Other Forms Of Tobacco Or Nicotine? No MIGRATION.444004 3579 Information not available 05/02/2022 Sex: Male Functional Status Question Answer Note LastModified by Organizat ion Details LastModified Time What is your exercise level? Moderate MIGRATION.[id number] 6 Information not available 05/02/2022 Mental Status None recorded. Family History Relationship Description Onset Age of this Age Resolved Age Notes LastModified by Organization Details LastModified Time Unspecified Relation Hypertensive disorder MIGRATION.[id number] Not available 05/02/2022 09:14:04 Medical History Condition Response BLINDNESS N RHEUMATIC FEVER N KIDNEY STONES N BLADDER PROBLEMS N MRSA N OTHER # 1 N POLIO N LUNG DISEASE/DISORDER N HISTORY OF DRUG ABUSE N RADIATION / CHEMOTHERAPY N COPD N Other # 2 N BLOOD DISEASES N SURGERY N EAR OR HEARING PROBLEMS N MUMPS N SHINGLES N BOWEL PROBLEMS N FEMALE PROBLEMS / INFECTIONS N DEPRESSION (INCLUDING POST ) N STROKE/TIA N THYROID DISEASE N ULCERS N BENIGN PROSTATIC HYPERPLASIA N MEASLES N CERVICALGIA N HYPOTENSION N TB SKIN TEST N MYOCARDIAL INFARCTION N PARAPELGIA N OBESITY N GERD/NAUSEA N ANEURYSM N URINARY/BLADDER/KIDNEY PROBLEMS N CORONARY ARTERY DISEASE (CAD) N MENIERE'S DISEASE N ADDICTION CONCERNS N ENDOMETRIOSIS N USE OF BLOOD THINNERS N SKIN PROBLEMS N EMPHYSEMA N GASTROINTESTINAL DISORDER N MUSCLE,JOINT OR BONE PROBLEMS N GASTROINTESTINAL BLEEDING N BLOOD CLOTS N ASTHMA N CATARACTS N ERECTILE DYSFUNCTION N GI PROBLEMS N CHF N Low Testosterone N NEUROPATHY N INFERTILITY N AIDS/HIV N FRACTURES N CHEMOTHERAPY / RADIATION N VISION/EYE PROBLEMS N LIVER DISEASE N MALE HYPOGONADISM N HYPERTENSION Y TOURETTE'S N ANXIETY DISORDER N BLOOD TRANSFUSION N ANEMIA/BLOOD DISORDER N CHRONIC EAR INFECTIONS N BRONCHITIS N TUBERCULOSIS N GLAUCOMA N FOOT PROBLEM N DIVERTICULITIS N CHICKENPOX N SLEEP APNEA N ALLERGIES/HAYFEVER N INFECTIOUS DISEASE N HEART ARRHYTHMIA N PROSTATE N INSOMNIA N HIGH CHOLESTEROL / HYPERLIPIDEMIA N HYPERTHYROIDISM N EYE PROBLEMS N EATING DISORDER N EDEMA N CHRONIC PAIN SYNDROME N CONSTIPATION N CAROTID BLOCKAGE N BACK / NECK PROBLEMS N HAVE YOU BEEN HOSPITALIZED OR SEEN IN [facility] IN THE PAST YEAR ? N ATHEROSCLEROSIS N BREAST PROBLEMS N DIALYSIS N ECZEMA N FIBROMYALGIA N OSTEOPOROSIS N ARTHRITIS N NO SIGNIFICANT PAST MEDICAL HISTORY N APPENDICITIS N DIABETES, TYPE N BAD TEETH N HEARTBURN / REFLUX N ADD/ADHD N AUTISM SPECTRUM DISORDER (ASD) N HEPATITIS / LIVER DISEASE N PULMONARY DISEASE N GOUT N SLEEP DISORDER N ALZHEIMER'S DISEASE N PAIN N HERPES N DEMENTIA N HEADACHES/MIGRAINES N SEIZURES/EPILEPSY N VASCULAR DISEASE N PACEMAKER N DIZZINESS N HEART DISEASE/HEART PROBLEMS N KIDNEY DISEASE N DEVELOPMENTAL OR BEHAVIORAL DISORDERS N MULTIPLE SCLEROSIS N SCARLET FEVER N MENTAL DISORDER/ILLNESS N CARDIAC ARRHYTHMIA N CANCER: SPECIFY N PNEUMONIA N ATRIAL FIBRILLATION N Gall Stones N PULMONARY EMBOLISM N AUTOIMMUNE DISEASE N Immunizations Vaccine Type Date Status Note Provider Nam e and Address Organization Details Recorded Time Influenza, split virus, quadrivalent, PF 02/19/2023 completed BRYAN Banuelos - [facility] 02/19/2023 14:56:09 Past Encounters Encounter ID Performer Location Encounter Start Date Encounter Closed Date Diagnosis/Indication Diagnosis SNOMED-CT Code Diagnosis ICD10 Code Diagnosis Note [id number] [facility] [address] [place] [address] 07/18/2020 00:00:00 07/18/2020 15:45:09 [id number] [facility] [address] [place] [address] 08/15/2020 00:00:00 08/15/2020 12:49:43 [id number] [facility] [address] [place] [address] 10/31/2020 00:00:00 10/31/2020 14:45:29 [id number] [facility] [address] [place] [address] 05/08/2021 00:00:00 05/08/2021 16:12:31 [id number] [facility] [address] [place] [address] 06/19/2021 00:00:00 06/19/2021 11:28:37 [id number] [facility] [address] [place] [address] 01/17/2022 00:00:00 01/17/2022 17:19:56 [id number] Romel Frias MD [facility] [place] [address] 05/29/2022 09:18:36 05/29/2022 11:24:46 Hospital inpatient stay within past 30 days [id number] 106 Z76.89 Fever 470697938 R50.9 Fatigue 03538862 R53.83 Diabetic ketoacidosis 42 7299175 E13.10 Type 2 malachi betes mellitus without complication 790234974 E11.9 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 9 Anxiety disorder 6332999 06 F41.9 Sepsis 70899858 A41.9 Post-acute COVID-19 1119 210988 U09.9 [id number] Romel Frias MD [address] [address] 12/10/2022 10:27:35 12/10/2022 10:59:57 Astrocytoma of brain 513131926 C71.9 Hypertensive disorder 38 963551 I10 Obesity 405631427 E66.9 Seizure disorder 5188928 02 G40.909 Type 2 malachi betes mellitus without complication 437029226 E11.9 Hyperlipidemia 17849089 E78.5 Hypertriglyceridemia 302 873810 E78.2 Gastroesop hageal reflux disease without esophagitis 833783578 K21.9 History of alcohol abuse 274922057 F10.10 Congestive heart failure 16715378 I50.9 Cigarette smoker 8406149 7 F17.210 Alcohol dependence 94020 003 F10.20 Vitamin D deficiency 347 28390 E55.9 [id number] Romel Frias MD [address] [address] 02/18/2023 10:44:44 02/18/2023 11:05:52 Adult health examination 031963333 Z00.00 Vitamin D deficiency 347 17116 E55.9 Type 2 malachi betes mellitus without complication 589325418 E11.9 Obesity 210987159 E66.9 Gastroesop hageal reflux disease without esophagitis 566014236 K21.9 Alcohol dependence 07412 003 F10.20 Administra tion of influenza vaccine 15438905 Z23 Cigarette smoker 4028369 7 F17.953 [id number] Romel Frias MD [address] [address] 04/15/2023 09:28:34 04/15/2023 10:01:54 Vitamin D deficiency 68738724 E55.9 Type 2 malachi betes mellitus without complication 347371298 E11.9 Obesity 690513252 E66.9 Gastroesop hageal reflux disease without esophagitis 554551372 K21.9 Alcohol dependence 32835 003 F10.20 Cigarette smoker 4233576 7 F17.210 Hypertensive disorder 38 153162 I10 Congestive heart failure 88933230 I50.9 Hypertriglyceridemia 302 934511 E78.2 Hyperlipidemia 10047888 E78.5 History of alcohol abuse 813839082 F10.10 Health Concerns Section Related Observation LastModified by Organization Detai ls LastModified Time None Recorded Concern Status LastModified by Organization Details LastModified Time None Recorded Advance Directives Directive N: Payers Encounter Date Sequence Insurance Name Policy Number Policy Singh Covered Member ID Singh Member ID Guarantor Name 05/29/2022 1 [place] [id number] Jerald C Lindow [id number] Jerald C Lindow 12/10/2022 1 [place] 33A Jreald C Lindow [id number] Jerald C Lindow 02/18/2023 1 [place] [id number] Jerald C Lindow [id number] Jerald C Lindow 04/15/2023 1 [place] 33A Jerald C Lindow [id number] Jerald C Lindow Notes Date Note Type Note Provider Name and Address Organization Details Recorded Time 05/29/2022 text/html Telephone visit:Hospital fuv and ACV: D/w pt's mom as pt is non-verbal since his brain surgery. Pt lives with his mom in [place], [place] and he was admitted from 05/21/22 to 05/27/22 due to multiple medical problems. Pt had DKA, sepsis, pneumonia, respiratory failure at that time. Pt was d/c on Cefdinir and he has 2 days left on it. Pt got IV Remdesavir in the hospital for his covid. As per mom, pt is having fever at night time since he was in the [facility]. Pt is not able to talk, but his speech is much clearer as per mom. Good po intake and no n/v/d. Pt is f/u with Onco at [place] and will be seeing them next Saturday. Pt will be seeing a new Neurosurgeon next month. Romel Frias MD [address] [place] [address], [place], [address], [place] [facility] 05/29/2022 11:18:08 12/10/2022 text/html ACV:Here with mo m. Pt needs refills on his chronic meds. Doing overall well and denies any new concern. Denies any problem with meds. Pt is f/u with Dr. Rowland (Onco) at [place] and Neuro at [facility] for his h/o brain cancer and seizures and he has finished all chemo and radiation therapy and he got MRI brain with them recently too. Still smoking and alcohol ++. Last visit in 01/23. Romel Frias MD [address], [place], [address], [employer] 12/10/2022 10:58:21 02/18/2023 text/html Pt is here with mom for his annual exam. Doing overall well and denies any new concern. Denies any problem with meds. Pt is f/u with Dr. Rowland (Onco) at [place] and Neuro at [facility] for his h/o astrocytoma and seizures and he has finished all chemo and radiation therapy. Pt is getting scans with them every few months. Still smoking and alcohol ++. Romel Frias MD [address], [place], [address], [employer] 02/18/2023 11:19:04 04/15/2023 text/html Pt is here with mom for f/u on his annual labs and chronic conditions. Doing overall well and denies any new concern. Denies any problem with meds. Somehow, we don't have any of his lab results yet. Pt is f/u with Dr. Rowland (Onco) at [place] and Neuro at [facility] for his h/o astrocytoma and seizures and he has finished all chemo and radiation therapy. Pt is getting scans with them every 2-4 months. Still smoking and alcohol ++. 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 Romel Frias MD [address], [place], [address], [employer] 04/15/2023 09:52:49
--- OUTSIDE RECORDS SUMMARY | 2024-04-13 10:06 | XMS_ITS | Clinical Summary ---
Author Organization [facility] Address [address] [place] [address] Care Team Providers Care Bakery Associate Name Role Phone None, Provider MD Primary [...] 107 07/21/2020 9:51 AM CDT Temperature 36.9 C (98.5 F) 07/21/2020 7:16 AM CDT Respiratory Rate 20 07/21/2020 9:51 AM CDT [...] age to complete this topic Care Teams Bakery Associate Relationship Specialty Start Date End Date None, Provider, PCP - General 07/21/20
--- OUTSIDE RECORDS SUMMARY | 2024-04-13 10:06 | XMS_ITS | Encounter Summary ---
Author Organization [facility] [email or web address] [facility] Address [address] [place] [address] Care Team Providers Care Commercial Construction Project Manager Name Role Phone Unavailable Primary Care Provider Unavailabl e Reason for Visit * Reason Comments Med Refill Encounter Details Date Type Department Care Team ([facility] Contact Info) Description 05/19/2022 Refill [facility] Oncology and Hematology - Darren [address] [facility] [address] [address] [place] [address] Kana Rowland MD [address] [facility] [address] [place] [address] Social History Tobacco Use Types [...] on file 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 No / Unsure 05/21/2022 11:39 AM CDT documented as of this encounter Plan of Treatment Upcoming Encounters Date Type Department Care Team (Late Contact Info) Description 05/20/2024 11:30 AM CDT Office Visit [facility] Neurology [address] [facility] [address] [place] [address] Damon Sunshine MD [address] [facility] [address] [place] [address] documented as of this encounter Visit Diagnoses Not on filedocumented in this encounter Additional Health Concerns Infection Onset Date Last Indicated Resolved Time COVID-19 Comment:Symptom onset: 05/20 Positive test: 05/21 Immunocompromised-chemo 05/20/2022 05/21/2022 08/20/2022 1:16 AM C DT documented as of this encounter
--- OUTSIDE RECORDS SUMMARY | 2024-04-13 10:06 | XMS_ITS | Clinical Summary ---
Author Organization [facility] Address [address] [place] [address] Phone Care Team Providers Care Mechanical Design Engineer Facilities Name Role Phone Unavailable Primary Care Provider [...] CDT 3 Active naloxone (NARCAN) 4 mg/spray [place], Non-Aerosol EMERGENCY USE ONLY: Administer 1 spray [...] prior to MRI 2 Tablet 4 Active amLODIPine (NORVASC) 10 mg tablet Take 10 mg by mouth daily. 4 Active Active Problems Problem Noted Date [...] Encounters Date Type Department Care Team Description 04/13/2024 9:45 AM GAMMA RAY OPERATOR Office Visit [facility] Oncology and Hematology [facility] [address] [place] [phone] Kana Rowland MD Arrived 04/06/2024 Orders Only [facility] Oncology and Hematology [facility] [address] [place] [address] Kana Rowland MD 03/10/2024 External Device Data STL ABSTRACTION Provider, Abstract 02/10/2024 Orders Only [facility] Oncology and Hematology [facility] [address] [place] [address] Kana Rowland MD 02/07/2024 9:30 AM GAMMA RAY OPERATOR Office Visit [facility] Oncology and Hematology [facility] [address] [place] [address] Kana Rowland MD 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) 01/17/2024 Telephone [facility] Oncology and Hematology [facility] [address] [place] [address] Kana Rowland MD appointment change 01/13/2024 Orders Only [facility] Oncology and Hematology [place] [address] [place] [address] Kana Rowland MD 01/12/2024 Refill [facility] Oncology and Hematology [facility] [address] [place] [address] Kana Rowland MD Seizure disorder (CMS/HCC) from Last 3 Months Family History Medical [...] on file 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 GAMMA RAY OPERATOR Gender Identity Not on file Sexual Orientation Not on file Last Filed Vital Signs Vital Sign Reading Time Taken Comments Blood Pressure 149/95 04/13/2024 10:02 AM GAMMA RAY OPERATOR Pulse 104 04/13/2024 9:57 AM GAMMA RAY OPERATOR Temperature 36.8 C (98.2 F) 04/13/2024 9:57 AM GAMMA RAY OPERATOR Respiratory Rate 16 04/13/2024 9:57 AM GAMMA RAY OPERATOR Oxygen Saturation 95% 04/13/2024 9:57 AM GAMMA RAY OPERATOR Inhaled Oxygen Concentration - - Weight 129.4 kg (285 lb 3.2 oz) 04/13/2024 9:57 AM GAMMA RAY OPERATOR Height 188 cm (6' 2 ) 05/16/2023 2:11 PM CDT Body Mass Index 36.62 05/16/2023 2:11 PM CDT Plan of Treatment Upcoming Encounters Date Type Department Care Team (Late st Contact Info) Description 05/20/2024 11:30 AM CDT Office Visit [facility] Neurology [address] [place] [address] Damon Sunshine MD [address] [place] [address] Health Maintenance Due Date Last Done Comments DIABETES ANNUAL FOOT EXAM 2004 DIABETES ANNUAL RETINAL EXAM 2004 DIABETES MICROALBUMIN ANNUAL SCREEN 2004 HEPATITIS B VACCINES (1 of 3 - 19+ 3-dose series) 2005 DIABETES HBA1C Q 6 MONTHS 11/21/2022 05/21/2022 LDL CHOLESTEROL ANNUAL 05/22/2023 05/21/2022 INFLUENZA VACCINE (#1) 2023 02/19/2023 Preventative Visit- Commercial 03/04/2024 02/18/2023 DTAP/TDAP/TD VACCINES (2 - T d or Tdap) 07/21/2030 07/21/2020 HPV VACCINES Aged Out No longer eligi ble based on patient's age to complete this topic Procedures Procedure Name Priority Date/Time Associated Diagnosis Comments MRI BRAIN W WO CONTRAST Routine 04/06/2024 2:33 PM GAMMA RAY OPERATOR BASIC METABOLIC PANEL Routine 02/07/2024 1:09 PM GAMMA RAY OPERATOR COMPREHENSIVE METABOLIC PANEL Routine 02/07/2024 11:36 AM GAMMA RAY OPERATOR MRI BRAIN W WO CONTRAST Routine 01/13/2024 11:13 AM GAMMA RAY OPERATOR HEMOGLOBIN A1C Stat 05/21/2022 2:59 PM CDT LIPID PANEL Stat 05/21/2022 2:57 PM CDT from Last 3 Months or Most Recently Relevant to Health Maintenance Results * MRI BRAIN W WO CONTRAST (04/06/2024 2:33 PM GAMMA RAY OPERATOR) Only the most recent of2 resultswithin the time period is included. Anatomical Region Laterality Modality Head Other Kana Rowland MD MR ORDERABLES Final Result * BASIC METABOLIC PANEL (02/07/2024 1:09 PM GAMMA RAY OPERATOR) Blood Kana Rowland MD CHEMISTRY ORDERABLES Final Resu lt * COMPREHENSIVE METABOLIC PANEL (02/07/2024 11:36 AM GAMMA RAY OPERATOR) Blood Kana Rowland MD CHEMISTRY ORDERABLES Final Resu lt * (ABNORMAL) HEMOGLOBIN A1C (05/21/2022 2:59 PM CDT) HEMOGLOBIN A1C >16.7(H) <5.7 % 05/21/2022 8:50 PM CDT [facility] EST. AVG GLUCOSE, A1C >433 mg/dL 05/21/2022 8:50 PM CDT [facility] Blood Venipuncture / Unknown 05/21/2022 2:59 PM CDT 05/21/2022 3:04 PM CDT [facility] - 05/21/2022 8:50 PM CDT HGB A1C INTERPRETATION NORMAL: <5.7% PRE-DIABETES: 5.7 - 6.4% DIABETES: 6.5% OR GREATER us Dylan Fulton DO CHEMISTRY ORDERABLES Final Res ult [facility] [employer] [facility]# [id number] [address] [facility] [place] [address] * LIPID PANEL (05/21/2022 2:57 PM CDT) [facility] CHOLESTEROL 05/21/2022 5:59 PM CDT [facility] Comment:Unable to evaluate d ue to lipemia. TRIGLYCERIDE 05/21/2022 5:59 PM CDT [facility] Comment:Unable to evaluate d ue to lipemia. HDL 05/21/2022 5:59 PM CDT [facility] Comment: Measured HDL is not accurate when the Triglyceride value exceeds 1200. Unable to evaluate due to lipemia. Unable to evaluate due to lipemia. LDL CALCULATED 05/21/2022 5:59 PM CDT [facility] Comment:Unable to Calculate Result NON-HDL CHOLESTEROL 05/21/2022 5:59 PM CDT [facility] Comment:Unable to Calculate Result Blood Venipuncture / Unknown 05/21/2022 2:57 PM CDT 05/21/2022 3:04 PM CDT [facility] - 05/21/2022 5:59 PM CDT TOTAL CHOLESTEROL mg/dL Desirable <200 Borderline high 200-239 High >=240 TRIGLYCERIDES mg/dL Normal <150 Borderline high 150-199 High 200-499 Very high >=500 HDL CHOLESTEROL mg/dL Low <40 Normal 40-59 Desirable >=60 NON HDL CHOLESTEROL mg/dL Optimal <130 Near Optimal 130-159 Borderline High 160-189 Very High >=190 CALCULATED LDL mg/dL LDL <70, OPTIMAL if have Atherosclerotic cardiovascular disease (ASCVD) or intermediate or higher (>7.5%) 10 year risk of ASCVD including most adults with diabetes. LDL <100, Optimal in adult patients with low (<7.5%) 10 year ASCVD risk LDL 100-160, Suboptimal LDL >160, High LDL >190, Very high ATPIII Guidelines Reference Ranges for Lipid Panels (NCEP/AMA) . Dylan Fulton DO CHEMISTRY ORDERABLES Final Res ult [facility]# [id number] [address] [facility] [place] [id number] from Last 3 Months or Most Recently Relevant to Health Maintenance Insurance [facility] FEDERAL [facility] FEDERAL RX [facility] [employer] RX BYRNES PLANS (INTERNAL) [facility] Internal Plans Advance Directives For more information, please contact: [phone] * Full Code (Latest Code Status on File) Date Activated Date Inactivated Comments 05/21/2022 3:08 PM 05/27/2022 6:46 PM
[2024-04-13 10:26] LABS: Alanine Aminotransferase 79 U/L (6-50); Albumin Level 4.5 g/dL (3.5-5.1); Alkaline Phosphatase 63 U/L (38-126); Anion Gap 12 mmol/L (4-12); Aspartate Amino Transferase 45 U/L (17-59); Bilirubin,Total 0.6 mg/dL (0.2-1.3); Blood Urea Nitrogen 16 mg/dL (9-20); Calcium 9.7 mg/dL (8.4-10.2); Carbon Dioxide 32 mmol/L (22-30); Chloride 99 mmol/L (98-107); Estimated Glomerular Filt Rate > 60; Glucose 122 mg/dL (65-110); Potassium 3.9 mmol/L (3.4-5.0); Sodium 143 mmol/L (137-145)
== END 2024-04-13 09:36 | disposition home or self-care (01) ==
LOC: ANHLAB 09:36
PROVIDERS: PCP Family Medicine; Visit Provider Internal Medicine Hematology & Oncology
DX: C71.9 Malignant neoplasm of brain, unspecified (principal)
CPT/HCPCS: 36415; 80047; 80053; 85025

== ENCOUNTER 2024-06-01 09:00 | Outpatient (CLI) | payer BC, SELFPAY ==
--- NOTE | ~2024-06-01 | MR_ITS ---
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 These were followed by axial T2-weigh fernando, diffusion weighted, gradient, and FLAIR images. Following intravenous administration of 20 cc Pr oHance gadolinium, T1-weighted fat-sat imaging was performed in the axial and coronal planes. 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 No abnormal postcontrast enhancement identified. No mass lesion or acute infarct seen. No int racranial hemorrhage. Ventricles and subarachnoid spaces are unremarkable. There is bilateral ethmoid and bilateral maxilla ry sinus disease. Remaining paranasal sinuses and mastoid air cells are clear. Major intracranial kvng w voids are intact. Orbits are unremarkable. Sagittal midline structures are intact. IMPRESSION: No significant change from prior exam. 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 No evidence for recurrent/residual malignancy. No abnormal postcontrast enhancement. Reviewed, dictated and finalized at location . IMPRESSION: No significant change from prior exam. 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 No evidence for recurrent/residual malignancy. No abnorm al postcontrast enhancement.
--- OUTSIDE RECORDS SUMMARY | 2024-06-01 09:39 | XMS_ITS | Clinical Summary ---
Author Organization [facility] Address [address] [facility] [place] [address] Phone Care Team Providers Care Regional Liaison Name Role Phone Unavailable Primary Care Provider [...] CDT 3 Active naloxone (NARCAN) 4 mg/spray [place], Non-Aerosol EMERGENCY USE ONLY: Administer 1 spray [...] Encounters Date Type Department Care Team Description 05/09/2024 External Device Data STL ABSTRACTION Provider, Abstract 05/08/2024 External Device Data STL ABSTRACTION Provider, Abstract 04/13/2024 9:45 AM OFFICE ASSISTANT Office Visit [facility] Oncology and Hematology [facility] [address] [place] [address] Kana Rowland MD 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) 04/06/2024 Orders Only [facility] Oncology and [facility] [address] [place] [address] Kana Rowland MD 03/10/2024 External Device Data [...] on file 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 OFFICE ASSISTANT Gender Identity Not on file Sexual Orientation Not on file Last Filed Vital Signs Vital Sign Reading Time Taken Comments Blood Pressure 149/95 04/13/2024 10:02 AM OFFICE ASSISTANT Pulse 104 04/13/2024 9:57 AM OFFICE ASSISTANT Temperature 36.8 C (98.2 F) 04/13/2024 9:57 AM OFFICE ASSISTANT Respiratory Rate 16 04/13/2024 9:57 AM OFFICE ASSISTANT Oxygen Saturation 95% 04/13/2024 9:57 AM OFFICE ASSISTANT Inhaled Oxygen Concentration - - Weight 129.4 kg (285 lb 3.2 oz) 04/13/2024 9:57 AM OFFICE ASSISTANT Height 188 cm (6' 2 ) 05/16/2023 2:11 PM CDT Body Mass Index 36.62 05/16/2023 2:11 PM CDT Plan of Treatment Upcoming Encounters Date Type Department Care Team (Late st Contact Info) Description 06/08/2024 10:00 AM CDT Office Visit [facility] Oncology and Hematology - [place] [address] [facility] [address] [place] [address] Kana Rowland MD [address] [facility] [address] [place] [address] 09/30/2024 2:00 PM CDT Office Visit [facility] Neurology [address] [facility] [place] [address] [place] [address] Damon Sunshine MD [address] [facility] [place] [address] [place] [address] Health Maintenance Due Date Last [...] W WO CONTRAST Routine 04/06/2024 2:33 PM OFFICE ASSISTANT HEMOGLOBIN A1C Stat 05/21/2022 2:59 PM CDT LIPID PANEL Stat 05/21/2022 2:57 PM CDT from Last 3 Months or Most Recently Relevant to Health Maintenance Results * MRI BRAIN W WO CONTRAST (04/06/2024 2:33 PM OFFICE ASSISTANT) Anatomical Region Laterality Modality Head Magnetic Resonan ce Kana Rowland MD MR ORDERABLES Final Result * (ABNORMAL) HEMOGLOBIN A1C (05/21/2022 2:59 PM CDT) Pathologist [facility] HEMOGLOBIN A1C >16.7(H) <5.7 % 05/21/2022 8:50 PM CDT [facility] EST. AVG GLUCOSE, A1C >433 mg/dL 05/21/2022 8:50 PM CDT [facility] Blood Venipuncture / Unknown 05/21/2022 2:59 PM CDT 05/21/2022 3:04 PM CDT Narrative [facility] - 05/21/2022 8:50 PM CDT HGB A1C INTERPRETATION NORMAL: <5.7% PRE-DIABETES: 5.7 - 6.4% DIABETES: 6.5% OR GREATER Dylan Fulton DO CHEMISTRY ORDERABLES Final Res ult [facility] [employer] [facility]# [id number] [address] [facility] [place] [address] * LIPID PANEL (05/21/2022 2:57 PM CDT) Pathologist [facility] CHOLESTEROL 05/21/2022 5:59 PM CDT [facility] [employer] [facility] Comment:Unable to evaluate d ue to lipemia. TRIGLYCERIDE 05/21/2022 5:59 PM CDT [facility] [employer] [facility] Comment:Unable to evaluate d ue to lipemia. HDL 05/21/2022 5:59 PM CDT [facility] Comment: Measured HDL is not accurate when the Triglyceride value exceeds 1200. Unable to evaluate due to lipemia. Unable to evaluate due to lipemia. LDL CALCULATED 05/21/2022 5:59 PM CDT [facility] Comment:Unable to Calculate Result NON-HDL CHOLESTEROL 05/21/2022 5:59 PM CDT [facility] Comment:Unable to Calculate Result Blood Venipuncture / Unknown 05/21/2022 2:57 PM CDT 05/21/2022 3:04 PM CDT [facility] LAB[facility]AT[facility] - 05/21/2022 5:59 PM CDT TOTAL CHOLESTEROL [...] Fulton DO CHEMISTRY ORDERABLES Final Res ult [facility] [id number] [address] [facility] [place] [address] from Last 3 Months or Most Recently Relevant to Health Maintenance Insurance [facility] FEDERAL [facility] FEDERAL RX [facility] [employer] RX BYRNES PLANS (INTERNAL) [facility] Internal Plans Advance Directives For more information, please contact: [phone] * Full Code (Latest Code Status on File) Date Activated Date Inactivated Comments 05/21/2022 3:08 PM 05/27/2022 6:46 PM
--- OUTSIDE RECORDS SUMMARY | 2024-06-01 09:39 | XMS_ITS | Clinical Summary ---
Author Organization [facility] Address [address] [place] [address] Care Team Providers Care Oil Operator Name Role Phone None, Provider MD Primary [...] age to complete this topic Care Teams Oil Operator Relationship Specialty Start Date End Date None, Provider, PCP - General 07/21/20
--- OUTSIDE RECORDS SUMMARY | 2024-06-01 09:39 | XMS_ITS | Encounter Summary ---
Author Organization [facility] Address [address] [place] [address] Care Team Providers Care Heel Seat Filler Name Role Phone Unavailable Primary Care Provider Unavailabl e Reason for Visit * Reason Comments Med Refill Encounter Details Date Type Department Care Team ([facility] Contact Info) Description 05/19/2022 Refill [facility] Oncology and Hematology [place] [address] [place] [address] [place] [address] [place] [address] [address] [place] [address] Social History Tobacco Use Types [...] on file 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 SPRING INTERN Gender Identity Not on file Sexual Orientation Not on file COVID-19 Exposure Response Date Recorded In the last 10 days, have yo u been in contact with someone who was confirmed or suspected to have Coronavirus/COVID-19? No / Unsure 05/21/2022 11:39 AM CDT documented as of this encounter Plan of Treatment Upcoming Encounters Date Type Department Care Team (Late Contact Info) Description 06/08/2024 10:00 AM CDT Office Visit [facility] Oncology and Hematology [facility] [address] [place] [address] Kana Rowland MD [address] [facility] [address] [place] [address] 09/30/2024 2:00 PM CDT Office Visit [facility] Neurology [address] [place] [address] Damon Sunshine MD [address] [facility] [address] [place] [address] documented as of this encounter Visit Diagnoses Not on filedocumented in this encounter Additional Health Concerns Infection Onset Date Last Indicated Resolved Time COVID-19 Comment:Symptom onset: 05/20 Positive test: 05/21 Immunocompromised-chemo 05/20/2022 05/21/2022 08/20/2022 1:16 AM C DT documented as of this encounter
== END 2024-06-01 09:01 | disposition home or self-care (01) ==
PROVIDERS: PCP Family Medicine; Visit Provider Internal Medicine Hematology & Oncology
DX: C71.9 Malignant neoplasm of brain, unspecified (principal)
CPT/HCPCS: 70553; A9579

== ENCOUNTER 2024-06-08 09:59 | Outpatient (CLI) | payer BC, SELFPAY ==
[2024-06-08 10:16] LABS: Basophils Absolute Auto 0.1 K/mm3 (0.0-0.1); Basophils Percent Auto 0.8 % (0.2-1.2); Eosinophils Absolute Auto 0.4 K/mm3 (0-0.3); Eosinophils Percent Auto 4.6 % (0-4.4); Hematocrit 44.2 % (42.0-52.0); Hemoglobin 14.9 g/dL (14.0-18.0); Immature Granulocyte Absolute 0.03 K/mm3 (0.00-0.031); Immature Granulocyte Percent A 0.3 % (0-0.5); Lymphocytes Absolute Auto 2.62 K/mm3 (0.9-3.2); Lymphocytes Percent Auto 29.3 % (18.3-44.2); Mean Corpuscular HGB Conc 33.7 g/dl (32-36); Mean Corpuscular Hemoglobin 30.7 pg (26-34); Mean Corpuscular Volume 91.1 fl (80-100); Mean Platelet Volume 9.7 fl (7.4-10.4); Monocytes Absolute Auto 0.6 K/mm3 (0.1-0.6); Monocytes Percent Auto 7.1 % (2.6-8.5); Neutrophils Absolute Auto 5.2 K/mm3 (1.3-6.7); Neutrophils Percent Auto 57.9 % (45.5-73.1); Platelet Count Result 238 k/mm3 (150-375); Red Blood Count 4.85 M/mm3 (4.6-6.20); Red Cell Distribution Width 12.1 % (11.5-14.5); White Blood Count 8.9 K/mm3 (4.5-10.0)
[2024-06-08 10:18] LABS: Blood Urea Nitrogen 13 mg/dL (8-26); Carbon Dioxide 31 mmol/L (22-30); Chloride 97 mmol/L (98-109); Estimated Glomerular Filt Rate > 60; Glucose 111 mg/dL (70-105); Ionized Calcium (POC) 1.13 mmol/L (1.11-1.31); Potassium 3.5 mmol/L (3.5-4.9); Sodium 141 mmol/L (138-146)
--- OUTSIDE RECORDS SUMMARY | 2024-06-08 11:19 | XMS_ITS | Clinical Summary ---
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) 06/02/2024 Orders Only [facility] Oncology and Hematology [facility] [address] [place] [address] Kana Rowland MD 05/09/2024 External Device Data STL ABSTRACTION Provider, Abstract 05/08/2024 External Device Data STL ABSTRACTION Provider, Abstract 04/13/2024 9:45 AM PACKAGER AND STRAPPER Office Visit [facility] Oncology and Hematology [facility] [address] [place] [address] Kana Rowland MD 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) 04/06/2024 Orders Only [facility] Oncology and Hematology [facility] [address] [place] [address] Kana Rowland MD 03/10/2024 External Device Data [...] on file 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 PACKAGER AND STRAPPER Gender Identity Not on file Sexual Orientation Not on file Last Filed Vital Signs Vital Sign Reading Time Taken Comments Blood Pressure 146/93 06/08/2024 10:35 AM CDT Pulse 90 06/08/2024 10:33 AM CDT Temperature 36.7 C (98.1 F) 06/08/2024 10:33 AM CDT Respiratory Rate 16 06/08/2024 10:3 3 AM CDT Oxygen Saturation 95% 04/13/2024 9:57 AM PACKAGER AND STRAPPER Inhaled Oxygen Concentration - - Weight 125.4 kg (276 lb 6.4 oz) 025 10:33 AM CDT Height 188 cm (6' 2 ) 05/16/2023 2:11 PM CDT Body Mass Index 35.49 05/16/2023 2:11 PM CDT Plan of Treatment Upcoming Encounters Date Type Department Care Team (Late st Contact Info) Description 08/17/2024 9:45 AM CDT Office Visit [facility] Oncology and Hematology - [place] [address] [facility] [address] [place] [address] Kana Rowland MD [address] [facility] [address] [place] [address] 09/30/2024 2:00 PM CDT Office Visit [facility] Neurology [address] [place] [address] Damon Sunshine MD [address] [place] [address] Health Maintenance Due Date Last [...] Comments MRI BRAIN W WO CONTRAST Routine 06/01/2024 9:00 AM CDT MRI BRAIN W WO CONTRAST Routine 04/06/2024 2:33 PM PACKAGER AND STRAPPER HEMOGLOBIN A1C Stat 05/21/2022 2:59 PM CDT LIPID PANEL Stat 05/21/2022 2:57 PM CDT from Last 3 Months or Most Recently Relevant to Health Maintenance Results * MRI BRAIN W WO CONTRAST (06/01/2024 9:00 AM CDT) Only the most recent of2 resultswithin the time period is included. Anatomical Region Laterality Modality Head Magnetic Resonan ce us Kana Rowland MD MR ORDERABLES Final Result * (ABNORMAL) HEMOGLOBIN A1C (05/21/2022 2:59 PM CDT) HEMOGLOBIN A1C >16.7(H) <5.7 % 05/21/2022 8:50 PM CDT [facility] EST. AVG GLUCOSE, A1C >433 mg/dL 05/21/2022 8:50 PM CDT [facility] Blood Venipuncture / Unknown 05/21/2022 2:59 PM CDT 05/21/2022 3:04 PM CDT Narrative [facility] - 05/21/2022 8:50 PM CDT HGB A1C INTERPRETATION NORMAL: <5.7% PRE-DIABETES: 5.7 - 6.4% DIABETES: 6.5% OR GREATER us Dylan Fulton DO CHEMISTRY ORDERABLES Final Res ult [facility] CLIA# [id number] [address] [place] [address] * LIPID PANEL (05/21/2022 2:57 PM CDT) CHOLESTEROL 05/21/2022 5:59 PM CDT [facility] Comment:Unable to evaluate d ue to lipemia. TRIGLYCERIDE 05/21/2022 5:59 PM CDT [facility] Comment:Unable to evaluate d ue to lipemia. HDL 05/21/2022 5:59 PM CDT [facility] Comment: Measured HDL is not accurate when the Triglyceride value exceeds 1200. Unable to evaluate due to lipemia. Unable to evaluate due to lipemia. LDL CALCULATED 05/21/2022 5:59 PM CDT [facility] Comment:Unable to Calculate Result NON-HDL CHOLESTEROL 05/21/2022 5:59 PM CDT [facility] Comment:Unable to Calculate Result Blood Venipuncture / Unknown 05/21/2022 2:57 PM CDT 05/21/2022 3:04 PM CDT [facility] - 05/21/2022 5:59 PM CDT TOTAL CHOLESTEROL [...] Fulton DO CHEMISTRY ORDERABLES Final Res ult [facility]# [id number] [address] [place] [address] from Last 3 Months or Most Recently Relevant to Health Maintenance Insurance [facility] FEDERAL [facility] FEDERAL RX [facility] RX [employer]RNES PLANS (INTERNAL) [facility] Internal Plans Advance Directives For more information, please contact: [phone] * Full Code (Latest Code Status on File) Date Activated Date Inactivated Comments 05/21/2022 3:08 PM 05/27/2022 6:46 PM
--- OUTSIDE RECORDS SUMMARY | 2024-06-08 11:19 | XMS_ITS | Encounter Summary ---
Author Organization [facility] Address [address] [place] [address] Care Team Providers Care Lime Sludge Mixer Name Role Phone Unavailable Primary Care Provider Unavailabl e Reason for Visit * Reason Comments Med Refill Encounter Details Date Type Department Care Team ([facility] Contact Info) Description 05/19/2022 Refill [facility] Oncology and Hematology [facility] [address] [place] [address] [place] [address] [place] [address] [address] [place] [address] Social History Tobacco Use Types [...] on file 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 CONTENT CURATOR Gender Identity Not on file Sexual Orientation Not on file COVID-19 Exposure Response Date Recorded In the last 10 days, have yo u been in contact with someone who was confirmed or suspected to have Coronavirus/COVID-19? No / Unsure 05/21/2022 11:39 AM CDT documented as of this encounter Plan of Treatment Upcoming Encounters Date Type Department Care Team (Late Contact Info) Description 08/17/2024 9:45 AM CDT Office Visit [facility] Oncology and Hematology [facility] [address] [place] [address] Kana Rowland MD [address] [facility] [place] [address] 09/30/2024 2:00 PM CDT Office Visit [facility] Neurology [id number] [place] [address] Damon Sunshine MD [address] [place] [address] documented as of this encounter Visit Diagnoses Not on filedocumented in this encounter Additional Health Concerns Infection Onset Date Last Indicated Resolved Time COVID-19 Comment:Symptom onset: 05/20 Positive test: 05/21 Immunocompromised-chemo 05/20/2022 05/21/2022 08/20/2022 1:16 AM C DT documented as of this encounter
--- OUTSIDE RECORDS SUMMARY | 2024-06-08 11:19 | XMS_ITS | Data Portability ---
Author Organization [place] - [facility] [email or web address], Main Office Address [address] [place] [id number] Care Team Providers Care Broiler Manager Name Role Phone ROMEL FRIAS Primary Care Provider Assessment Encounter Date Assessment Date Assessment LastModified by Organization Details LastModified Time 02/18/2023 02/18/2023 37 yo M with - [...] per schedule. Cont f/u with Onco at [facility] as per schedule. Cont f/u with Neuro at [facility] as per schedule. HM: Flu - 02/18/23. Tdap - On next visit. Gardasil - Pt declined. F/u in 2 weeks. Annual labs in 02/24. [email or web address] Not available 02/18/2023 11:14:07 04/15/2023 04/15/2023 37 [...] per schedule. Cont f/u with Onco at [facility] as per schedule. Cont f/u with Neuro at [facility] as per schedule. HM: Flu - 02/18/23. Tdap - 2017. Gardasil - Pt declined. F/u in 3 months. Annual labs Or A1c, lipids before next visit. Annual labs in 02/24. [email or web address] Not available 04/15/2023 09:51:51 04/13/2024 04/13/2024 38 yo M with - HTN, uncontrolled - DM II - HLD - HTG [...] directed. Diet and exercise explained in detail. BP diary education given. Advised pt to cut down on alcohol & smoking and options for him. F/u with Ophtho as per schedule. Cont f/u with Onco at [facility] as per schedule. Cont f/u with Neuro at [facility] as per schedule. Offered to refer to Cardio; but pt declined. HM: Flu - 02/18/23. Tdap - 2017. Gardasil - Pt declined. F/u in 3 months. Annual labs Or A1c, lipids before next visit. Annual labs in 02/24. [email or web address] Not available 04/13/2024 12:20:37 06/08/2024 06/08/2024 38 yo M with - WELL ADULT VISIT - HTN, uncontrolled - DM II - HLD - HTG - GERD - PERIPHERAL EDEMA - SEIZURE DISORDER - VIT D DEFICIENCY - R/O AGUEDA - ALCOHOL DEPENDENCE - SMOKING - OBESITY II - H/O ASTROCYTOMA OF BRAIN (S/p surgery, chemo and radiation) HbA1c: 6.1(10/31/20) MRI brain + stem w/wo: 04/06/24. MRI brain + stem w/wo: 02/11/23. MRI brain + stem w/wo: 08/28/22. D/w pt and his mom in detail about his findings, recent labs & imagines and further plan of care. Will do routine labs. Advised to refer for sleep study; but pt declined. All meds verified with pt and mom. Meds as directed. Diet and exercise explained in detail. Pt is not interested for any Rx. BP diary education given. Advised pt to cut down on alcohol & smoking and options for him. Cont f/u with Ophtho as per schedule. Cont f/u with Onco at [facility] as per schedule. Cont f/u with Neuro at [facility] as per schedule. Offered to refer to Cardio; but pt declined. Offered to refer to [employer]; but pt declined. HM: Flu - 01/25. Tdap - 2017. Gardasil - Pt declined. F/u in 2-3 weeks. Annual labs in 06/26. [email or web address] Not available 06/08/2024 10:50:32 Plan of Treatment Reminders Order Date Submit Date Provider Last Modified By Organization Details Last Modified Time Details Appointments Physical/ Annual Wellness 2024 09:30A M Romel Frias MD Not available Not available Not available Lab vitamin B12 + folate, serum or blood 2024 025 [email or web address] [facility] (Lab), [address] [place], [address], 06/08/2024 10:36:22 magnesium , serum or plasma 2024 025 [email or web address] [facility] (Lab), [address] [place], [address], 06/08/2024 10:36:22 CMP, serum or plasma [address] (Lab), [address] [place], [address], 06/08/2024 10:36:22 CBC w/ auto diff [address] (Lab), [address] [place], [address], 06/08/2024 10:36:22 lipid panel, blood [address] (Lab), [address] [place], [address], 06/08/2024 10:36:22 TSH, serum, reflex free T4 [address] (Lab), [address] [place], [address], 06/08/2024 10:36:22 PSA, serum or plasma [address] (Lab), [address] [place], [address], 06/08/2024 10:36:22 urinalysi s complete, reflex culture [address] (Lab), [address] [place], [address], 06/08/2024 10:36:22 vitamin D, 25-hydrox y, total, serum [address] (Lab), [address] [place], [address], 06/08/2024 10:36:22 glycohemo globin, total, blood [address] (Lab), [address] [place], [address], 06/08/2024 10:36:22 microalbu min, urine 2024 025 [email or web address] [facility] (Lab), [address] [place], [address], 06/08/2024 10:36:22 lipid panel, serum [address] (Lab), [address] [place], [address], 07/10/2023 12:18:35 glycohemo globin, total, blood 2023 024 [email or web address] [facility] (Lab), [address] [place], [address], 08/02/2023 12:43:57 vitamin B12 + folate, serum or blood [address] (Lab), [address] [place], [address], 04/29/2023 08:47:06 vitamin D, 25-hydrox y, total, serum [address] (Lab), [address] [place], [address], 04/29/2023 08:47:06 magnesium , serum or plasma [address] (Lab), [address] [place], [address], 04/29/2023 08:47:06 H pylori igm+igg+i ga Ab, serum [address] (Lab), [address] [place], [address], 04/29/2023 08:47:06 glycohemo globin, total, blood [address] (Lab), [address] [place], [address], 04/29/2023 08:47:06 microalbu min, urine [address] (Lab), [address] [place], [address], 04/29/2023 08:47:06 CMP, serum or plasma [address] (Lab), [address] [place], [address], 04/29/2023 08:47:05 CBC w/ auto diff [address] (Lab), [address] [place], [address], 04/29/2023 08:47:05 lipid panel, blood [address] (Lab), [address] [place], [address], 04/29/2023 08:47:05 TSH, serum, reflex free T4 [address] (Lab), [address] [place], [address], 04/29/2023 08:47:05 PSA, serum or plasma [address] (Lab), [address] [place], [address], 04/29/2023 08:47:05 urinalysi s complete, reflex culture [address] (Lab), [address] [place], [address], 04/29/2023 08:47:05 Referral None recorded. Procedures None recorded. Surgeries None recorded. Imaging None recorded. Medication Orders fenofibra te 160 mg tablet 2024 [facility] #06110, [address] [facility], [place], [place], [id number], 06/08/2024 10:35:41 folic acid 1 mg tablet 2024 [facility] #26257, [address] [place], [place], [id number], 06/08/2024 10:35:41 furosemid e 40 mg tablet 2024 [facility] #28429, [address] [place] [place], [place], [id number], 06/08/2024 10:35:38 lisinopri l 40 mg tablet 2024 025 [facility] #40448, [address] [place] [place], [place], [id number], 06/08/2024 10:35:39 amlodipin e 10 mg tablet 2024 025 [facility] #56687, [address] [place], [place], [id number], 06/08/2024 10:35:42 metoprolo l succinate ER 50 mg tablet,ex tended release 24 hr 2024 025 [facility] #34642, [address] [place], [place], [id number], 06/08/2024 10:35:42 atorvasta tin 40 mg tablet 2024 025 [facility] #48224, [address] [facility], [place], [id number], 06/08/2024 10:35:39 pantopraz ole 40 mg tablet,de layed release 2024 [facility] #38467, [address] [facility], [place], [place], [id number], 06/08/2024 10:35:40 metformin ER 500 mg tablet,ex tended release 24 hr 2024 [facility] #18447, [address] [facility], [place], [place], [id number], 06/08/2024 10:35:42 fenofibra te 160 mg tablet 2024 [facility] #89252, [address] [facility], [place], [place], [id number], 04/13/2024 12:08:34 lisinopri l 40 mg tablet 2024 [facility] #67120, [address] [facility], [place], [place], [id number], 04/13/2024 12:08:30 amlodipin e 10 mg tablet 2024 [facility] #87073, [address] [facility], [place], [place], [id number], 04/13/2024 12:09:30 metoprolo l succinate ER 25 mg tablet,ex tended release 24 hr 2024 025 [email or web address] [facility] #97532, [address] [facility], [place], [place], [id number], 06/08/2024 10:49:55 atorvasta tin 40 mg tablet 2024 025 [facility] #30266, [address] [place], [place], [id number], 04/13/2024 12:08:33 folic acid 1 mg tablet 2024 025 [facility] #21247, [address] [place], [place], [id number], 04/13/2024 12:08:34 ergocalci ferol (vitamin D2) 1,250 mcg (50,000 unit) capsule 2024 025 [facility] #95051, [address] [place], [place], [id number], 04/13/2024 12:08:34 pantopraz ole 40 mg tablet,de layed release 2024 025 [facility] #58953, [address] [place], [place], [id number], 04/13/2024 12:08:28 metformin ER 500 mg tablet,ex tended release 24 hr 2024 025 [facility] #99652, [address] [place], [place], [id number], 04/13/2024 12:08:31 furosemid e 40 mg tablet 2024 025 [facility] #37356, [address] [place], [place], [id number], 04/13/2024 12:08:33 fenofibra te 160 mg tablet 2023 024 [facility] #85263, [address] [place], [place], [id number], 04/15/2023 09:43:10 lisinopri l 40 mg tablet 2023 024 [facility] #21510, [address] [place], [place], [id number], 04/15/2023 09:43:11 atorvasta tin 40 mg tablet 2023 024 [facility] #27335, [address] [facility], [place], [place], [id number], 04/15/2023 09:43:07 folic acid 1 mg tablet 2023 024 [facility] #87738, [address] [facility], [place], [place], [id number], 04/15/2023 09:43:08 ergocalci ferol (vitamin D2) 1,250 mcg (50,000 unit) capsule 2023 024 [facility] #33538, [address] [place], [place], [id number], 04/15/2023 09:43:07 pantopraz ole 40 mg tablet,de layed release 2023 024 [facility] #57589, [address] [place], [place], [id number], 04/15/2023 09:43:11 metformin ER 500 mg tablet,ex tended release 24 hr 2023 024 [facility] #86949, [address] [place], [place], [id number], 04/15/2023 09:43:11 furosemid e 40 mg tablet 2023 024 [facility] #42724, [address] [place], [place], [id number], 04/15/2023 09:43:08 fenofibra te 160 mg tablet 2022 023 [facility] #84104, [address] [place], [place], [id number], 12/10/2022 10:46:18 lisinopri l 40 mg tablet 2022 023 [facility] #73827, [address] [facility], [place], [place], [id number], 12/10/2022 10:46:17 atorvasta tin 40 mg tablet 2022 023 [facility] #60877, [address] [facility], [place], [place], [id number], 12/10/2022 10:46:19 folic acid 1 mg tablet 2022 [facility] #81307, [address] [facility], [place], [place], [id number], 12/10/2022 10:46:15 pantopraz ole 40 mg tablet,de layed release 2022 023 [facility] #73233, [address] [facility], [place], [place], [id number], 12/10/2022 10:46:17 metformin ER 500 mg tablet,ex tended release 24 hr 2022 023 [facility] #78772, [address] [facility], [place], [place], [id number], 12/10/2022 10:46:18 furosemid e 40 mg tablet 2022 023 [facility] #89343, [address] [facility], [place], [place], [id number], 12/10/2022 10:46:14 Patient TargetsNo targets recorded. Patient Instructions Encounter Date Encounter Id Patient Instructions Last Modified By Organization Details Last Modified Time 04/13/2024 [id number] high blood pressure: care instructions [email or web address] Not available 04/13/2024 12:12:23 dash diet: care instructions [email or web address] Not available 04/13/2024 12:12:23 When You Want to Lose Weight: Care Instructions [email or web address] Not available 04/13/2024 12:19:33 type 2 diabetes: care instructions [email or web address] Not available 04/13/2024 12:19:33 06/08/2024 [id number] When You Want to Lose Weight: Care Instructions [email or web address] Not available 06/08/2024 10:35:23 high blood pressure: care instructions [email or web address] Not available 06/08/2024 10:35:24 dash diet: care instructions [email or web address] Not available 06/08/2024 10:35:25 type 2 diabetes: care instructions Not available 06/08/2024 10:35:23 Reason for Referral None Reported. Results Created Date Observation Date Name Description Value Unit Range Abnormal Flag Note LastModifiedBy Organization Detail LastModifiedTime 12/04/1912/03/2022 MRI, brain + brain stem, w/wo contr ast No observ ation record ed. [address], [address], 12/10/2022 10:38:39 02/12/20 23 02/11/2023 MRI, brain + brain stem, w/wo contr ast No observ ation record ed. [address] [address], [place], [address], 02/18/2023 10:52:47 04/15/19 24 04/15/2023 MRI, brain + brain stem, w/wo contr ast No observ ation record ed. [address] [address], [place], [address], 04/13/2024 12:04:35 06/24/19 24 06/24/2023 MRI, brain + brain stem, w/wo contr ast No observ ation record ed. [address] [address], [place], [address], 04/13/2024 12:04:35 08/26/19 24 08/26/2023 MRI, brain + brain stem, w/wo contr ast No observ ation record ed. [address], [place], [address], 06/08/2024 10:35:56 10/28/19 24 10/28/2023 MRI, brain + brain stem, w/wo contr ast No observ ation record ed. [address], [place], [address], 04/13/2024 12:04:34 01/13/20 24 01/13/2024 MRI, brain + brain stem, w/wo contr ast No observ ation record ed. [address], [place], [address], 04/13/2024 12:04:34 04/06/19 25 04/06/2024 MRI, brain + brain stem, w/wo contr ast No observ ation record ed. [address] [facility], [place], [address], 04/13/2024 12:04:33 Result Notes None recorded. Problems Name Problem SNOMED Code Status Onset Date Resolution Date Notes Provider Name and Address Organization Details Recorded Time Seizure disorder 261111013 Active 2021 Not Available [facility] 3 09:19:41 Alcohol abuse 57173527 Active 2020 Not Available [facility] 3 09:19:41 Alcohol withdrawa l 184915621 Active 2021 Not Available [facility] 3 09:19:41 Claustrop hobia 20971283 Active 2021 Not Available [facility] 3 09:19:41 Astrocyto ma of brain 726895151 Active 2021 Not Available [facility] 3 09:19:41 Adult health examinati on Active 2021 Not Available [facility] 3 09:19:42 Spleen tender 454814891 Completed Not Available [facility] 3 09:19:42 Screening for disorder Active 2021 Not Available [facility] 3 09:19:42 Vitamin D deficienc y 72714430 Active 2021 Not Available [facility] 3 09:19:42 Hypertens willy disorder 66140433 Active 2020 Not Available [facility] 3 09:19:42 Obesity 595265153 Active 2020 Not Available [facility] 3 09:19:42 Pain of left knee joint 73029986959 4107 Active 2021 Not Available [facility] 3 09:19:43 Hyperlipi demia 72094092 Active 2021 Not Available [facility] 3 09:19:43 Dyspnea on exertion 06703997 Active 2020 Not Available [facility] 3 09:19:43 Alcohol dependenc e 04193189 Active 2021 Not Available [facility] 3 09:19:43 Muscle pain 76931701 Completed Not Available [facility] 3 09:19:43 Liver enzymes level above reference range 259771813 Active 2021 Not Available [facility] 3 09:19:43 Smoker 92437160 Active 2020 Not Available [facility] 3 09:19:44 Fatigue 15918420 Active 2022 Romel Frias MD [address], [place], [address] , [employer] [facility] [email or web address] 3 09:49:25 Type 2 diabetes mellitus without complicat ion 420489089 Active 2022 Romel Frias MD [address], [place], [address] , [employer] [facility] [employer] [facility] 3 09:50:05 Pneumonia 539094889 Active 2022 Romel Frias MD [address], [place], [address] , [employer] [facility] [email or web address] 3 10:33:52 Anxiety disorder 351859087 Active 2022 Romel Frias MD [address], [place], [address] , [employer] [facility] [email or web address] 3 10:35:23 Post-acut e COVID-19 7219156116 Active 2022 Romel Frias MD [address], [place], [address] , [employer] 3 11:15:08 Hypertrig lyceridem ia 279254855 Active 2022 Romel Frias MD [address], [place], [address] , [employer] [facility] [email or web address] 3 10:42:02 Cigarette smoker 95558818 Active 2022 Romel Frias MD [address], [place], [address] , [employer] 3 10:54:57 History of alcohol abuse 620921392 Active 2022 MD [address], [place], [address] , [employer] [facility] [employer] [facility] 3 10:55:17 Gastroeso phageal reflux disease without esophagit is 269830432 Active 2022 MD [address], [place], [address] , [employer] [facility] [employer] [facility] 3 10:55:17 Congestiv e heart failure 36082513 Active 2022 MD [address], [address] , [facility] [employer] [facility] [email or web address] 3 10:55:17 Problem Notes None recorded. Procedures Surgical History Date Name Laterality Status Provider Name and Address Organization Details Recorded Time 5 Smoking Cessation completed MD [address], [place], [address], [facility] 06/08/2024 10:27:29 5 Smoking Cessation completed Romel Frias MD [address], [place], [address], [facility] 04/13/2024 12:18:40 3 Smoking Cessation completed Romel Frias MD [address], [place], [address], [facility] 02/18/2023 10:53:05 3 Smoking Cessation completed Romel Frias MD [address], [place], [address], [facility] 12/10/2022 10:47:50 Imaging Results Imaging Date Name Status LastModified by Organiz ation Details LastModified Time 12/03/2022 MRI, brain + brain stem, w/wo contrast completed [address], [address], 12/10/2022 10:38:39 02/11/2023 MRI, brain + brain stem, w/wo contrast completed [address], [address], 02/18/2023 10:52:47 04/15/2023 MRI, brain + brain stem, w/wo contrast completed [address], [address], 04/13/2024 12:04:35 06/24/2023 MRI, brain + brain stem, w/wo contrast completed [address], [address], 04/13/2024 12:04:35 08/26/2023 MRI, brain + brain stem, w/wo contrast completed [address], [place], [address], 06/08/2024 10:35:56 10/28/2023 MRI, brain + brain stem, w/wo contrast completed [address], [address], 04/13/2024 12:04:34 01/13/2024 MRI, brain + brain stem, w/wo contrast completed [address], [address], 04/13/2024 12:04:34 04/06/2024 MRI, brain + brain stem, w/wo contrast completed [address], [address], 04/13/2024 12:04:33 Procedure Notes None recorded. Medical Equipment None Reported. Allergies No known drug allergies Medications Name Sig Start Date Stop Date Status Note LastModified by Organization Details LastModified Time furosemide 40 mg tablet TAKE 1 TABLET BY MOUTH EVERY DAY IN THE MORNING 2024 active Not Available Not Available Not [employer] atorvastat in 40 mg tablet Take 1 tablet every day by oral route at bedtime for 90 days. 2024 active Not Available Not Available Not Avai lable atorvastat in 20 mg tablet TAKE 1 TABLET BY MOUTH EVERY DAY AT BEDTIME 04/13 completed Not Available Not Available Not Available metoprolol succinate ER 50 mg tablet,ext ended release 24 hr Take 1 tablet every day by oral route as directed for 90 days. 2024 active Not Available Not Available Not Avai [...] Available Not Available amlodipine 10 mg tablet Take 1 tablet every day by oral route as directed for 90 days. 2024 active Not Available Not Available Not Avai lable cephalexin 500 mg capsule 12/10 completed Not Available Not Available Not Available pantoprazo le 40 mg tablet,del ayed release TAKE 1 TABLET BY MOUTH EVERY DAY 2024 active Not Available Not Available Not Avai lable dexamethas one 4 mg tablet TAKE 1 [...] TABLET BY MOUTH EVERY 12 HOURS NEEDED 06/08 completed Not Available Not Available Not Available folic acid 1 mg tablet TAKE 1 TABLET BY MOUTH EVERY DAY 2024 active Not Available Not Available Not Avai lable hydroxyzin e HCl 25 mg tablet 12/10 completed Not Available Not Available Not Available furosemide 20 mg tablet TAKE 1 TABLET BY MOUTH EVERY DAY IN THE MORNING active Not Available Not Available No t Available metoprolol succinate ER 25 mg tablet,ext ended release 24 hr TAKE 1 TABLET BY MOUTH EVERY DAY DIRECTED 06/08 completed Not Available Not Available Not Available ergocalcif mahendra (vitamin D2) 1,250 mcg [...] 1 TABLET BY MOUTH EVERY DAY DIRECTED 2024 active Not Available Not Available Not Avai lable cefdinir 300 mg capsule TAKE 1 CAPSULE BY MOUTH EVERY 12 HOURS FOR 7 DAYS DIRECTED 12/10 completed Not Available Not Available Not Available metformin ER 500 mg tablet,ext ended release 24 hr TAKE 2 TABLET BY MOUTH BID AFTER MEALS 2024 active Not Available Not Available Not Avai lable lamotrigin e 100 mg tablet active Not Available Not Available Not Available cyclobenza elton 5 mg tablet TK 1 T PO QHS active Not Available Not Available No t Available fenofibrat e 160 mg tablet TAKE 1 TABLET BY MOUTH EVERY DAY IN THE MORNING 2024 active Not Available Not Available Not Avai lable thiamine HCl (vitamin B1) 2021 active Not [...] Not Available Not Available Not Available Basaglar KwikPen U-100 Insulin 100 unit/mL (3 mL) subcutaneo 12/10 completed Not Available Not Available Not Available OneTouch Delica Plus Lancet 33 gauge active Not Available Not Available Not Available Vitals Date Recorded Body height Body mass index (BMI) Body weight Body temperature Heart rate Systolic blood pressure Diastolic blood pressure Provider Name and Address Organization Details Last Updated DateTime 3 187.96 cm 33.8 kg/m2 692423. 59 g 97.7 [degF] 76 /min 144 mm[Hg] 84 mm[Hg] Yadi Jimenez MA [facility] [employer] 3 10:36:40 Date Recorded Oxygen saturation Oxygen saturation in Arterial blood by Pulse oximetry Provider Name and Address Organization Details Last Updated DateTime 12/10/2022 96 % 96 % Romel Frias MD [address] [place] [address], [place], [address], [facility] [employer] 12/10/2022 10:46:17 Date Recorded Body height Body mass index (BMI) Body weight Body temperature Heart rate Respiratory rate Oxygen saturation Oxygen saturation in Arterial blood by Pulse oximetry Systolic blood pressure Diastolic blood pressure Provider Name and Address Organization Details Last Updated DateTime 3 187.96 cm 34.7 kg/m2 811231. 94 g 98 [degF] 78 /min 18 /min 98 % 98 % 140 mm[Hg] 80 mm[Hg] Andres Gaitan [facility] [employer] 3 10:51:11 Date Recorded Body height Body mass index (BMI) Body weight Body temperature Oxygen saturation Oxygen saturation in Arterial blood by Pulse oximetry Systolic blood pressure Diastolic blood pressure Provider Name and Address Organization Details Last Updated DateTime 4 187.96 cm 36.6 kg/m2 955406. 18 g 98 [degF] 98 % 98 % 128 mm[Hg] 80 mm[Hg] Andres Gaitan [facility] [employer] [facility] 4 09:34:12 Date Recorded Heart rate Provider Name an d Address Organization Details Last Updated DateTime 04/15/2023 94 /min Royce [address] [place], [address], [facility] [email or web address] 04/15/2023 09:35:12 Date Recorded Body height Body mass index (BMI) Body weight Body temperature Systolic blood pressure Diastolic blood pressure Provider Name and Address Organization Details Last Updated DateTime 5 187.96 cm 36.5 kg/m2 019519. 23 g 98.2 [degF] 150 mm[Hg] 90 mm[Hg] Zaina Vasques RN [facility] [employer] 5 12:02:57 Date Recorded Oxygen saturation Oxygen saturation in Arterial blood by Pulse oximetry Heart rate Provider Name and Address Organization Details Last Updated DateTime 04/13/2024 95 % 95 % 100 /min Romel Frias MD [address] [place], [address], [employer] [email or web address] 04/13/2024 12:15:50 Date Recorded Body height Body mass index (BMI) Body weight Body temperature Oxygen saturation Oxygen saturation in Arterial blood by Pulse oximetry Systolic blood pressure Diastolic blood pressure Provider Name and Address Organization Details Last Updated DateTime 5 187.96 cm 35.7 kg/m2 646602. 78 g 97.1 [degF] 95 % 95 % 150 mm[Hg] 80 mm[Hg] Zaina Vasques RN [facility] [employer] 10:24:11 Date Recorded Heart rate Provider Name an d Address Organization Details Last Updated DateTime 06/08/2024 98 /min Royce Michelle [address] [place], [address], [facility] [employer] 06/08/2024 10:43:58 Social History Question Answer Notes LastModified by Organizat ion Details LastModified Time Tobacco Smoking Status Current Every Day Smoker Not Available [facility] 05/02/2022 09:13:38 Do You Have An Advance Directive? No MIGRATION.16071 62374 Information not available 05/02/2022 What Is Your Level Of Alcohol Consumption? Moderate Couple Beers Every Couple Of Days [email or web address] Information not available 06/08/2024 How Many Years Have You Consumed Alcohol? 16 [email or web address] Information not available 06/08/2024 Do You Wear A Helmet When Biking? No MIGRATION.31885 53005 Information not available 05/02/2022 What Is Your Level Of Caffeine Consumption? Occasional Maybe If One Energy Drink Per Day [email or web address] Information not available 06/08/2024 In The 14 Days Before Symptom Onset, Have You Had Close Contact With A Laboratory-confir med COVID-19 While That Case Was Ill? No MIGRATION.44013 14989 Information not available 05/02/2022 In The 14 Days Before Symptom Onset, Have You Had Close Contact With A Person Who Is Under Investigation For COVID-19 While That Person Was Ill? No MIGRATION.52807 66489 Information not available 05/02/2022 What Type Of Diet Are You Following? REGULAR MIGRATION.18857 70502 Information not available 05/02/2022 What Is The Highest Grade Or Level Of School You Have Completed Or The Highest Degree You Have Received? 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 No MIGRATION.62411 77204 Information not available 05/02/2022 Are There Any Guns Present In Your Home? No MIGRATION.55727 48641 Information not available 05/02/2022 Do You Use Insect Repellent Routinely? No MIGRATION.18094 05922 Information not available 05/02/2022 Do You Have A Medical Power Of Jewel Flat Surfacer? No MIGRATION.52376 98292 Information not available 05/02/2022 What Is Your Current Pack Years? 10-19packyears [email or web address] Information not available 06/08/2024 Have You Ever Been Counseled For Unhealthy Alcohol Use? No MIGRATION.97140 46632 Information not available 05/02/2022 What Is Your Relationship Status? Single MIGRATION.12269 40675 Information not available 05/02/2022 Do You Use Your Seat Belt Or Car Seat Routinely? Yes MIGRATION.41835 26868 Information not available 05/02/2022 Do You Have Smoke And Carbon Monoxide Detectors In Your Home? Yes MIGRATION.50599 01649 Information not available 05/02/2022 At What Age Did You Start Smoking Tobacco? 21 Information not available 06/08/2024 Are You Passively Exposed To Smoke? Yes MIGRATION.79242 50681 Information not available 05/02/2022 Are There Any Smokers In Your House? No MIGRATION.48070 16993 Information not available 05/02/2022 How Much Tobacco Do You Smoke? 1 PPD MIGRATION.91521 20970 Information not available 05/02/2022 Do You Participate In Social [employer]? No MIGRATION.01039 56307 Information not available 05/02/2022 Do You Feel Stressed (tense, Restless, Nervous, Or Anxious, Or Unable To Sleep At Night)? [id number] MIGRATION.24038 94645 Information not available 05/02/2022 Do You Use Any Illicit Or Recreational Drugs? No MIGRATION.01364 73358 Information not available 05/02/2022 Do You Use Sunscreen Routinely? No MIGRATION.52166 00772 Information not available 05/02/2022 Has Tobacco Cessation Counseling Been Provided? No MIGRATION.25279 52964 Information not available 05/02/2022 How Many Years Have You Smoked Tobacco? 17 [email or web address] Information not available 06/08/2024 Have You Recently Traveled Abroad? No MIGRATION.25164 76331 Information not available 05/02/2022 Are You Currently In School? No MIGRATION.49653 49220 Information not available 05/02/2022 Do You Have Any Dietary Restrictions? No MIGRATION.34888 91276 Information not available 05/02/2022 Do You Or Have You Ever Used Any Other Forms Of Tobacco Or Nicotine? No MIGRATION.82450 90582 Information not available 05/02/2022 Sex: Male Functional Status Question Answer Note LastModified by Organizat ion Details LastModified Time What is your exercise level? Moderate MIGRATION.[id number] 6 Information not available 05/02/2022 Mental Status None recorded. Family History Relationship Description Onset Age of this Age Resolved Age Notes LastModified by Organization Details LastModified Time Unspecified Relation Hypertensive disorder [id number] Not available 05/02/2022 09:14:04 Medical History Condition [...] HAVE YOU BEEN HOSPITALIZED OR SEEN IN [facility] IN THE PAST YEAR ? N ATHEROSCLEROSIS [...] quadrivalent, PF 02/19/2023 completed BRYAN Banuelos - [facility] 02/19/2023 14:56:09 Past Encounters Encounter ID Performer Location Encounter Start Date Encounter Closed Date Diagnosis/Indication Diagnosis SNOMED-CT Code Diagnosis ICD10 Code Diagnosis Note [id number] [address] [address] 07/18/2020 00:00:00 07/18/2020 15:45:[id number] [address] 1 08/15/2020 00:00:00 08/15/2020 12:49:[id number] [address] 1 10/31/2020 00:00:00 10/31/2020 14:45:[id number] [address] 1 05/08/2021 00:00:00 05/08/2021 16:12:[id number] [address] 06/19/2021 00:00:00 06/19/2021 11:28:[id number] [address] 01/17/2022 00:00:00 01/17/2022 17:19:56 [id number] Romel Frias MD [address] [address] 05/29/2022 09:18:36 05/29/2022 11:24:46 Hospital inpatient stay within past 30 days 0659992619 106 Z76.89 Fever 430751477 R50.9 Fatigue 61254878 R53.83 Diabetic ketoacidosis 42 7352215 E13.10 Type 2 malachi betes mellitus without complication 191587139 E11.9 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 9 Anxiety disorder 8082725 06 F41.9 Sepsis 27985456 A41.9 Post-acute COVID-19 1119 650812 U09.9 [id number] Romel Frias MD [address] [address] 12/10/2022 10:27:35 12/10/2022 10:59:57 Astrocytoma of brain 020813161 C71.9 Hypertensive disorder 38 523709 I10 Obesity 107906486 E66.9 Seizure disorder 8127381 02 G40.909 Type 2 malachi betes mellitus without complication 723131372 E11.9 Hyperlipidemia 48611189 E78.5 Hypertriglyceridemia 302 313663 E78.2 Gastroesop hageal reflux disease without esophagitis 604318324 K21.9 History of alcohol abuse 682246601 F10.10 Congestive heart failure 86069532 I50.9 Cigarette smoker 5999041 7 F17.210 Alcohol dependence 22524 003 F10.20 Vitamin D deficiency 347 50961 E55.9 [id number] Romel Frias MD [address] [address] 02/18/2023 10:44:44 02/18/2023 11:05:52 Adult health examination 810304882 Z00.00 Vitamin D deficiency 347 00764 E55.9 Type 2 malachi betes mellitus without complication 793350836 E11.9 Obesity 302463271 E66.9 Gastroesop hageal reflux disease without esophagitis 395446345 K21.9 Alcohol dependence 50394 003 F10.20 Administra tion of influenza vaccine 15181451 Z23 Cigarette smoker 2660832 7 F17.997 [id number] Romel Frias MD [address] [address] 04/15/2023 09:28:34 04/15/2023 10:01:54 Vitamin D deficiency 48746829 E55.9 Type 2 malachi betes mellitus without complication 507628491 E11.9 Obesity 840747948 E66.9 Gastroesop hageal reflux disease without esophagitis 617365126 K21.9 Alcohol dependence 99590 003 F10.20 Cigarette smoker 6556971 7 F17.210 Hypertensive disorder 38 300624 I10 Congestive heart failure 58891997 I50.9 Hypertriglyceridemia 302 022418 E78.2 Hyperlipidemia 68798099 E78.5 History of alcohol abuse 956379007 F10.10 [id number] [place] [address] 04/13/2024 11:46:33 04/13/2024 12:15:47 Gastroesophageal reflux disease without esophagitis 116900569 K21.9 Vitamin D deficiency 347 18680 E55.9 Type 2 malachi betes mellitus without complication 799382892 E11.9 Obesity 883789080 E66.9 Alcohol dependence 23293 003 F10.20 Cigarette smoker 1287422 7 F17.210 Hypertensive disorder 38 457788 I10 Congestive heart failure 23794620 I50.9 Hypertriglyceridemia 302 421414 E78.2 Hyperlipidemia 27736108 E78.5 History of alcohol abuse 254983706 F10.10 [id number] Romel Frias MD [place] [address] 1 06/08/2024 10:16:09 06/08/2024 10:54:26 Hypertensive disorder 28442837 I10 Congestive heart failure 99271839 I50.9 Type 2 malachi betes mellitus without complication 665790878 E11.9 Gastroesop hageal reflux disease without esophagitis 224769021 K21.9 Vitamin D deficiency 347 96534 E55.9 Obesity 285315357 E66.9 Alcohol dependence 76962 003 F10.20 Cigarette smoker 6805734 7 F17.210 Hypertriglyceridemia 302 243478 E78.2 Hyperlipidemia 77626732 E78.5 History of alcohol abuse 495588444 F10.10 Adult heal th examination 199268948 Z00.00 Health Concerns Section Related Observation LastModified by Organization Detai ls LastModified Time None Recorded Concern Status LastModified by Organization Details LastModified Time None Recorded Advance Directives Directive N: Payers Encounter Date Sequence Insurance Name Policy Number Policy Singh Covered Member ID Singh Member ID Guarantor Name 12/10/2022 1 [place] 33A Jerald [place] [id number] Jerald Howard Lindow 02/18/2023 1 [place] 33A Jerald Robertsonow [id number] Jerald C Lindow 04/15/2023 1 [place] 33A Jerald Robertsonow [id number] Jerald C Lindow 04/13/2024 1 [place] 33A Jerald Howard Lindow [id number] Jerald C Lindow 06/08/2024 1 [place] 33A Jerlad Robertsonow [id number] Jerald Lee Lindow Notes Date Note Type Note Provider Name and Address Organization Details Recorded Time 12/10/2022 text/html ACV:Here with mo m. Pt needs refills on his chronic meds. Doing overall well and denies any new concern. Denies any problem with meds. Pt is f/u with Dr. Rowland ([facility] for his h/o brain cancer and seizures and he has finished all chemo and radiation therapy and he got MRI brain with them recently too. Still smoking and alcohol ++. Last visit in 01/23. Romel Frias MD [address], [place] [address], [place], [address], [employer] 12/10/2022 10:58:21 02/18/2023 text/html Pt is here with mom for his annual exam. Doing overall well and denies any new concern. Denies any problem with meds. Pt is f/u with Dr. Rowland ([facility]) at [facility] for his h/o astrocytoma and seizures and he has finished all chemo and radiation therapy. Pt is getting scans with them every few months. Still smoking and alcohol ++. Romel Frias MD [address] [facility], [facility] [address], [place], [address], [employer] 02/18/2023 11:19:04 04/15/2023 text/html Pt is here with mom for f/u on his annual labs and chronic conditions. Doing overall well and denies any new concern. Denies any problem with meds. Somehow, we don't have any of his lab results yet. Pt is f/u with Dr. Rowland ([facility]) at [facility] for his h/o astrocytoma and seizures and he has finished all chemo and radiation therapy. Pt is getting scans with them every 2-4 months. Still smoking and alcohol ++. 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 Romel Frias MD [address], [place], [address], [employer] 04/15/2023 09:52:49 04/13/2024 text/html Pt is here with mom for f/u on his labs and chronic conditions. Doing overall well and denies any new concern. Denies any problem with meds. Pt has not gone for his annual labs yet. Pt is getting few labs with his Onco, every 2-3 months. Pt is not checking his BP at home. His BP at Onco's office was higher as per mom. Pt is f/u with Dr. Rowland (On[facility]) at [facility] for his h/o astrocytoma and seizures and he has finished all chemo and radiation therapy. Pt is getting scans with them every 2-4 months. Still smoking and alcohol ++. 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 Romel Frias MD [address], [place], [address], [employer] 04/13/2024 12:20:57 06/08/2024 text/html Pt is here with mom for his annual exam. Doing overall well and denies any new concern. Denies any problem with meds. Pt is fating today and wants to get his all labs done today here. Pt is still not checking his BP at home. His BP at Onco's office was higher as per mom. Pt is f/u with Dr. Rowland ([facility]) at [facility] for his h/o astrocytoma and seizures and he has finished all chemo and radiation therapy. Pt is getting scans with them every 2-4 months. Still smoking and alcohol ++. 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 Romel Frias MD [address] [place] [address], [place], [address], [facility] 06/08/2024 10:51:02
--- OUTSIDE RECORDS SUMMARY | 2024-06-08 11:20 | XMS_ITS | Encounter Summary ---
Author Organization [facility] Address [address] [place] [address] Care Team Providers Care Molder Shoulder Pad Name Role Phone Unavailable Primary Care Provider Unavailabl e Reason for Referral * MRI (Routine) - Pending Review Specialty Diagnoses / Procedures Referred By Aris cabrera Referred To Contact Diagnoses Low grade glioma of brain (CMS/HCC) Procedures MRI BRAIN W WO CONTRAST Kana Rowland MD [address] [place] [address] Phone: tel: fax: [place] [phone] Referral ID Status Reason Start Date Expiration Date Visits Requested Visits Authorized [id number] Pending Review [facility] 06/08/2024 07/09/2025 1 1 Encounter Details Date Type Department Care Team (Late st Contact Info) Description 06/08/2024 10:00 AM CDT Office Visit [facility] Oncology and Hematology [facility] [address] [facility] [address] [place] [address] Kana Rowland MD [address] [place] [address] 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) Social History Tobacco Use Types Packs/Day Years [...] on file 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 Gender Identity Not on file Sexual Orientation Not on file documented as of this encounter Last Filed Vital Signs Vital Sign Reading Time Taken Comments Blood Pressure 146/93 06/08/2024 10:35 AM CDT Pulse 90 06/08/2024 10:33 AM CDT Temperature 36.7 C (98.1 F) 06/08/2024 10:33 AM CDT Respiratory Rate 16 06/08/2024 10:3 3 AM CDT Oxygen Saturation - - Inhaled Oxygen Concentration - - Weight 125.4 kg (276 lb 6.4 oz) 025 10:33 AM CDT Height - - Body Mass Index 35.49 05/16/2023 2:11 PM CDT documented in this encounter Plan of Treatment Upcoming Encounters Date Type Department Care Team (Late st Contact Info) Description 08/17/2024 9:45 AM CDT Office Visit [facility] Oncology and Hematology - [place] [address] [facility] [address] [place] [address] Kana Rowland MD [address] [facility] [address] [place] [address] 09/30/2024 2:00 PM CDT Office Visit [facility] Neurology [address] [facility] [address] [place] [address] Damon Sunshine MD [address] [facility] [address] [place] [address] Scheduled Orders Name Type Priority Associated Diagnoses Orde r Schedule CBC WITH DIFFERENTIAL Lab Stat Low grade glioma of brain (CMS/HCC) Expected: 08/17/2024, Expires: 06/08/2025 COMPREHENSIVE METABOLIC PANEL Lab Stat Low grade glioma of brain (CMS/HCC) Expected: 08/17/2024, Expires: 06/08/2025 MRI BRAIN W WO CONTRAST Imaging Routine Low grade glioma of brain (CMS/HCC) Expected: 08/10/2024, Expires: 06/08/2025 documented as of this encounter Visit Diagnoses Diagnosis Low grade glioma of brain (CMS/HCC)- Primary Malignant neoplasm of brain, unspecified site documented in this encounter
--- OUTSIDE RECORDS SUMMARY | 2024-06-08 11:20 | XMS_ITS | Clinical Summary ---
Author Organization [facility] Address [address] [place] [address] Care Team Providers Care Material Worker Name Role Phone None, Provider MD Primary [...] (2 - 2023-2 5 season) 2023 06/06/2020 DTaP, Tdap and Td Vaccines ( 2 [...] age to complete this topic Care Teams Material Worker Relationship Specialty Start Date End Date None, Provider, PCP - General 07/21/20
[2024-06-08 12:06] LABS: Alanine Aminotransferase 102 U/L (6-50); Albumin Level 4.6 g/dL (3.5-5.1); Alkaline Phosphatase 48 U/L (38-126); Anion Gap 12 mmol/L (4-12); Aspartate Amino Transferase 59 U/L (17-59); Bilirubin,Total 0.4 mg/dL (0.2-1.3); Blood Urea Nitrogen 15 mg/dL (9-20); Calcium 9.1 mg/dL (8.4-10.2); Carbon Dioxide 31 mmol/L (22-30); Chloride 98 mmol/L (98-107); Estimated Glomerular Filt Rate > 60; Glucose 111 mg/dL (65-110); Potassium 3.6 mmol/L (3.4-5.0); Sodium 141 mmol/L (137-145)
== END 2024-06-08 10:00 | disposition home or self-care (01) ==
LOC: ANHLAB 10:00
PROVIDERS: PCP Family Medicine; Visit Provider Internal Medicine Hematology & Oncology
DX: C71.9 Malignant neoplasm of brain, unspecified (principal)
CPT/HCPCS: 36415; 80047; 80053; 85025

== ENCOUNTER 2024-08-10 09:04 | Outpatient (CLI) | payer BC, SELFPAY ==
--- NOTE | ~2024-08-10 | MR_ITS ---
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 These were followed by axial T2-weigh fernando, diffusion weighted, gradient, and FLAIR images. Following intravenous administration of 20 cc Pr oHance gadolinium, T1-weighted fat-sat imaging was performed in the axial, coronal, and sagittal plan es. COMPARISON: 06/01/2024 Findings: Stable cystic and cephalization was running gliosis in the right frontoparietal region. No acute infarct. No recurrent mass lesion identified. No intracranial hemorrhage evident. Ventricles and subarachnoid spaces are otherwise unremarkable. There is retention cyst or polyp in th e left maxillary sinus. Remaining paranasal sinuses and mastoid air cells are clear. Major intracrani al flow voids are intact. Sagittal midline structures are intact. No abnormal or suspicious postcontrast enhancement identified. IMPRESSION: No evidence of recurrent disease. Stable postsurgical change in the left frontoparietal region. Reviewed, dictated and finalized at [facility].
--- OUTSIDE RECORDS SUMMARY | 2024-08-10 09:37 | XMS_ITS | Encounter Summary ---
Author Organization [facility] [employer] [facility] Address [address] [place] [address] Care Team Providers Care Marketing Services Specialist Name Role Phone Unavailable Primary Care Provider Unavailabl e Reason for Visit * Reason Comments Med Refill Encounter Details Date Type Department Care Team ([facility] Contact Info) Description 05/19/2022 Refill [facility] Oncology and Hematology [facility] [address] [place] [address] [place] [address] [place] [address] [address] [place] [address] Social History Tobacco Use Types [...] on file 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 [employer] Gender Identity Not on file Sexual Orientation [...] Description 08/17/2024 9:45 AM CDT Office Visit [facility] Oncology and Hematology [facility] [address] [place] [address] Kana Rowland MD [address] [facility] [address] [place] [address] 09/30/2024 2:00 PM CDT Office Visit [facility] Neurology [address] [address] [facility] [address] [place] [address] [place] [address] Damon Sunshine MD [address] [facility] [address] [place] [address] [place] [address] documented as of this encounter Visit Diagnoses Not on filedocumented in this encounter Additional Health Concerns Infection Onset Date Last Indicated Resolved Time COVID-19 Comment:Symptom onset: 05/20 Positive test: 05/21 Immunocompromised-chemo 05/20/2022 05/21/2022 08/20/2022 1:16 AM C DT documented as of this encounter
--- OUTSIDE RECORDS SUMMARY | 2024-08-10 09:38 | XMS_ITS | Clinical Summary ---
Author Organization [facility] Address [address] [place] [address] Phone Care Team Providers Care Screening Unit Registered Nurse Name Role Phone Unavailable Primary Care Provider Unavailabl e Allergies No known active allergies Medications ergocalciferol (VITAMIN D2) 50,000 unit capsule TAKE 1 CAPSULE BY MOUTH EVERY WEEK DIRECTED 01/17/20 Active fenofibrate (LOFIBRA) 160 mg Tablet Take 160 mg by mouth daily in the morning. 01/17/20 22 Active folic acid (FOLVITE) 1 mg tablet Take 1 mg by mouth daily. 02/06/20 22 Active furosemide (LASIX) 40 mg tablet Take 40 mg by mouth daily in the morning. 01/18/20 22 Active lisinopriL (PRINIVIL) 40 mg tablet TAKE 1 TABLET BY MOUTH EVERY DAY DIRECTED 01/18/20 22 Active metFORMIN (GLUCOPHAGE XR) 500 mg Extended Release 24 hour tablet 500 mg 2 times daily with meals. 01/17/20 Active pantoprazole (PROTONIX) 40 mg Tablet, Delayed Release (E.C.) 02/29/20 22 Active Vitamin B-1, mononitrate, 100 mg tablet Take 1 Tablet by mouth daily. 02/06/20 22 Active albuterol sulfate HFA 90 mcg/actuation aerosol inhaler Take 2 Puffs by inhalation every 4 hours as needed. Active blood sugar diagnostic Strip Use to test blood sugar 4 times daily 100 Each 3 8:53 AM CDT 05/25/19 23 Active lancets 33 gauge Use to test blood sugar 4 times daily 100 Each 3 8:53 AM CDT 05/25/19 23 Active Blood-Glucose Meter Use to test blood sugar 4 times daily 1 Each 3 8:53 AM CDT 05/25/19 23 Active naloxone (NARCAN) 4 mg/spray [place], Non-Aerosol EMERGENCY USE ONLY: Administer 1 spray (4 mg) in one nostril one time. May repeat in alternating nostrils every 2-3 min until responsive or EMS arrives. 2 Each 3 3 3:17 PM CDT 05/28/19 23 Active temozolomide (TEMODAR) 5 mg capsule Take 2 capsules daily for 5 days on every 28-day cycles 10 Capsule 5 07/04/19 23 Active temozolomide (TEMODAR) 250 mg capsuleIndicat ions:Low grade glioma of brain (CMS/HCC) TAKE 1 CAPSULE BY MOUTH 1 TIME A DAY BEFORE BREAKFAST ON DAYS 1-5 OF A 28 DAY CYCLE. (TOTAL DAILY DOSE OF 390MG) 5 Capsule 5 07/21/19 23 Active atorvastatin (LIPITOR) 40 mg tablet Take 1 Tablet (40 mg) by mouth daily. 30 Tablet 10/10/19 23 Active diclofenac sodium (VOLTAREN) 75 mg Tablet, Delayed Release (E.C.) Take 1 Tablet (75 mg) by mouth every 12 hours. For headaches 30 Tablet 09/02/19 24 Active levETIRAcetam (KEPPRA) 500 mg tabletIndicati ons:Seizure disorder (CMS/HCC) TAKE 3 TABLETS(1500 MG) BY MOUTH TWICE DAILY 540 Tablet 3 11/29/19 24 Active amLODIPine (NORVASC) 10 mg tablet Take 10 mg by mouth daily. 02/09/20 24 Active LORazepam (ATIVAN) 1 mg tabletIndicati ons:Low grade glioma of brain (CMS/HCC) Take 1 tablet 1 hour prior to MRI, and 1 tablet 15 minutes prior to MRI 2 Tablet 06/09/19 25 Active lamoTRIgine (LaMICtal) 100 mg tabletIndicati ons:Seizure disorder (CMS/HCC) TAKE 1 TABLET(100 MG) BY MOUTH TWICE DAILY 180 Tablet 1 07/21/19 25 Active lamoTRIgine (LaMICtal) 100 mg tabletIndicati ons:Seizure disorder (CMS/HCC) TAKE 1 TABLET(100 MG) BY MOUTH TWICE DAILY 180 Tablet 1 01/13/20 24 025 Discontinued Active Problems Problem Noted Date Diagnosed Date [...] Encounters Date Type Department Care Team Description 07/18/2024 Refill [facility] [address] [place] [id number] Aleksandra Orellana MD Seizure disorder (CMS/HCC) 07/07/2024 External Device Data ST[facility] ABSTRACTION Provider, Abstract 06/08/2024 10:00 AM CDT Office Visit [facility] [address] [place] [phone] Kana Rowland MD 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) 06/02/2024 Orders Only [facility] [address] [place] [address] Kana Rowland MD from Last 3 Months Family History Medical [...] on file 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 [employer] Gender Identity Not on file Sexual Orientation Not on file Last Filed Vital Signs Vital Sign Reading Time Taken Comments Blood Pressure 146/93 06/08/2024 10:35 AM CDT Pulse 90 06/08/2024 10:33 AM CDT Temperature 36.7 C (98.1 F) 06/08/2024 10:33 AM CDT Respiratory Rate 16 06/08/2024 10:3 3 AM CDT Oxygen Saturation 95% 04/13/2024 9:57 AM [employer] Inhaled Oxygen Concentration - - Weight 125.4 kg (276 lb 6.4 oz) 025 10:33 AM CDT Height 188 cm (6' 2) 05/16/2023 2:11 PM CDT Body Mass Index 35.49 05/16/2023 2:11 PM CDT Plan of Treatment Upcoming Encounters Date Type Department Care Team (Late st Contact Info) Description 08/17/2024 9:45 AM CDT Office Visit [facility] - [place] [address] [facility] [address] [place] [phone] Kana Rowland MD [address] [facility] [address] [place] [phone] 09/30/2024 2:00 PM CDT Office Visit [facility] Neurology [id number] [facility] [address] [place] [address] Damon Sunshine MD [address] [facility] [address] [place] [address] Health Maintenance Due Date Last [...] WO CONTRAST Routine 06/01/2024 9:00 AM CDT HEMOGLOBIN A1C Stat 05/21/2022 2:59 PM CDT LIPID PANEL Stat 05/21/2022 2:57 PM CDT from Last 3 Months or Most Recently Relevant to Health Maintenance Results * MRI BRAIN W WO CONTRAST (06/01/2024 9:00 AM CDT) Anatomical Region Laterality Modality Head Magnetic Resonan ce Kana Rowland MD MR ORDERABLES Final Result * (ABNORMAL) HEMOGLOBIN A1C (05/21/2022 2:59 PM CDT) HEMOGLOBIN A1C >16.7(H) <5.7 % 05/21/2022 8:[address] [facility] EST. AVG GLUCOSE, A1C >433 mg/dL 05/21/2022 8:[address] [facility] Blood Venipuncture / Unknown 05/21/2022 2:59 PM CDT 05/21/2022 3:[address] [facility] - 05/21/2022 8:50 PM CDT HGB A1C INTERPRETATION NORMAL: <5.7% PRE-DIABETES: 5.7 - 6.4% DIABETES: 6.5% OR GREATER us Dylan Fulton DO CHEMISTRY ORDERABLES Final Res ult [facility] CLIA# [id number] [address] [facility] [place] [id number] * LIPID PANEL (05/21/2022 2:57 PM CDT) CHOLESTEROL 05/21/2022 5:[address] [facility] Comment:Unable to evaluate d ue to lipemia. TRIGLYCERIDE 05/21/2022 5:[address] [facility] Comment:Unable to evaluate d ue to lipemia. HDL 05/21/2022 5:[address] [facility] Comment: Measured HDL is not accurate when the Triglyceride value exceeds 1200. Unable to evaluate due to lipemia. Unable to evaluate due to lipemia. LDL CALCULATED 05/21/2022 5:[address] [facility] Comment:Unable to Calculate Result NON-HDL CHOLESTEROL 05/21/2022 5:[address] [facility] Comment:Unable to Calculate Result Blood Venipuncture / Unknown 05/21/2022 2:57 PM CDT 05/21/2022 3:[address] [facility] - 05/21/2022 5:59 PM CDT TOTAL CHOLESTEROL [...] Reference Ranges for Lipid Panels (NCEP/AMA) . us Dylan Fulton DO CHEMISTRY ORDERABLES Final Res ult [facility] [place] [facility]# [id number] [address] [facility] [place] [id number] from Last 3 Months or Most Recently Relevant to Health Maintenance Insurance [facility] RX [facility] [employer] (INTERNAL) [facility] Internal Plans Advance Directives For more information, please contact: [phone] * Full Code (Latest Code Status on File) Date Activated Date Inactivated Comments 05/21/2022 3:08 PM 05/27/2022 6:46 PM
--- OUTSIDE RECORDS SUMMARY | 2024-08-10 09:38 | XMS_ITS | Data Portability ---
Author Organization [place] - [facility] [employer], Main Office Address [address] [place] [id number] Care Team Providers Care County Administrator Name Role Phone ROMEL FRIAS Primary Care [...] per schedule. Cont f/u with Onco at [place] as per schedule. Cont f/u with Neuro at [facility] as per schedule. HM: Flu - 02/18/23. Tdap - On next visit. Gardasil - Pt declined. F/u in 2 weeks. Annual labs in 02/24. [email or web address] Not available 02/18/2023 11:14:07 04/15/2023 04/15/2023 37 [...] per schedule. Cont f/u with Onco at [place] as per schedule. Cont f/u with Neuro at [facility] as per schedule. HM: Flu - 02/18/23. Tdap - 2017. Gardasil - Pt declined. F/u in 3 months. Annual labs Or A1c, lipids before next visit. Annual labs in 02/24. [email or web address] Not available 04/15/2023 09:51:51 04/13/2024 04/13/2024 37 [...] per schedule. Cont f/u with Onco at [place] as per schedule. Cont f/u with Neuro at [facility] as per schedule. Offered to refer to Cardio; but pt declined. HM: Flu - 02/18/23. Tdap - 2017. Gardasil - Pt declined. F/u in 3 months. Annual labs Or A1c, lipids before next visit. Annual labs in 02/24. [email or web address] Not available 04/13/2024 12:20:37 06/08/2024 06/08/2024 37 [...] per schedule. Cont f/u with Onco at [place] as per schedule. Cont f/u with Neuro at [facility] as per schedule. Offered to refer to Cardio; but pt declined. Offered to refer to [employer]; but pt declined. HM: Flu - 01/25. Tdap - 2017. Gardasil - Pt declined. F/u in 2-3 weeks. Annual labs in 06/26. Not available 06/08/2024 10:50:32 Plan of Treatment Reminders Order Date Submit Date Provider Last Modified By Organization Details Last Modified Time Details Appointments None recorded. Lab vitamin B12 + folate, serum or blood 2024 025 [email or web address] 4 [facility] (Lab), [address] [place], [address], 5 10:07:41 magnesium, serum or plasma 2024 025 [facility] (Lab), [address] [place], [address], 5 19:54:19 CMP, serum or plasma 2024 025 [facility] (Lab), [address] [place], [address], 5 19:54:11 CBC w/ auto diff 2024 025 [facility] (Lab), [address] [place], [address], 5 13:31:30 lipid panel, blood [address] (Lab), [address] [place], [address], 5 10:40:10 TSH, serum, reflex free T4 [address] (Lab), [address] [place], [address], 5 15:25:25 PSA, serum or plasma [address] (Lab), [address] [place], [address], 5 15:28:41 urinalysis complete, reflex culture [address] (Lab), [address] [place], [address], 5 15:25:25 vitamin D, 25-hydroxy, total, serum [email or web address] [place] [address] (Lab), [address] [place], [address], 5 10:07:40 glycohemogl obin, total, blood 2024 025 [facility] (Lab), [address] [place], [address], 5 20:14:35 microalbumi n, urine 2024 025 [email or web address] 4 [facility] (Lab), [address] [place], [address], 5 15:45:50 lipid panel, serum [address] (Lab), [address] [place], [address], 4 12:18:35 glycohemogl obin, total, blood 2023 024 [email or web address] [facility] (Lab), [address] [place], [address], 4 12:43:57 vitamin B12 + folate, serum or blood [address] (Lab), [address] [place], [address], 4 08:47:06 vitamin D, 25-hydroxy, total, serum [address] (Lab), [address] [place], [address], 4 08:47:06 magnesium, serum or plasma [address] (Lab), [address] [place], [address], 4 08:47:06 H pylori igm+igg+iga Ab, serum [address] (Lab), [address] [place], [address], 4 08:47:06 glycohemogl obin, total, blood [address] (Lab), [address] [place], [address], 4 08:47:06 microalbumi n, urine [address] (Lab), [address] [place], [address], 4 08:47:06 CMP, serum or plasma [address] (Lab), [address] [place], [address], 4 08:47:05 CBC w/ auto diff [address] (Lab), [address] [place], [address], 4 08:47:05 lipid panel, blood [address] (Lab), [address] [place], [address], 4 08:47:05 TSH, serum, reflex free T4 [address] (Lab), [address] [place], [address], 4 08:47:05 PSA, serum or plasma [address] (Lab), [address] [place], [address], 4 08:47:05 urinalysis complete, reflex culture [address] (Lab), [address] [place], [address], 4 08:47:05 Referral None recorded. Procedures None recorded. Surgeries None recorded. Imaging None recorded. Medication Orders fenofibrate 160 mg tablet 2024 [facility] #17472, [address], [place], [place], [id number], 5 10:35:41 folic acid 1 mg tablet 2024 [facility] #00403, [address], [place], [place], [id number], 5 10:35:41 furosemide 40 mg tablet 2024 [facility] #21944, [address], [place], [place], [id number], 5 10:35:38 lisinopril 40 mg tablet 2024 [facility] #08163, [address], [place], [place], [id number], 5 10:35:39 amlodipine 10 mg tablet 2024 [facility] #96758, [address], [place], [place], [id number], 5 10:35:42 metoprolol succinate ER 50 mg tablet,exte nded release 24 hr 2024 [facility] #44353, [address], [place], [place], [id number], 5 10:35:42 atorvastati n 40 mg tablet 2024 [facility] #98501, [address], [place], [place], [id number], 5 10:35:39 pantoprazol e 40 mg tablet,darin yed release 2024 025 [facility] #46586, [address], [place], [place], [id number], 5 10:35:40 metformin ER 500 mg tablet,exte nded release 24 hr 2024 025 [facility] #02577, [address], [place], [place], [id number], 5 10:35:42 fenofibrate 160 mg tablet 2024 025 [facility] #88805, [address], [place], [place], [id number], 5 12:08:34 lisinopril 40 mg tablet 2024 [facility] #24835, [address], [place], [place], [id number], 5 12:08:30 amlodipine 10 mg tablet 2024 025 [facility] #55906, [address] [place], [place], [id number], 5 12:09:30 metoprolol succinate ER 25 mg tablet,exte nded release 24 hr 2024 025 [email or web address] [facility] #82047, [address], [place], [place], [id number], 5 10:49:55 atorvastati n 40 mg tablet 2024 025 [facility] #11934, [address] [place], [id number], 5 12:08:33 folic acid 1 mg tablet 2024 025 [facility] #12011, [address], [place], [place], [id number], 5 12:08:34 ergocalcife rol (vitamin D2) 1,250 mcg (50,000 unit) capsule 2024 025 [facility] #10430, [address], [place], [place], [id number], 5 12:08:34 pantoprazol e 40 mg tablet,darin yed release 2024 025 [facility] #99887, [address], [place], [place], [id number], 5 12:08:28 metformin ER 500 mg tablet,exte nded release 24 hr 2024 025 [facility] #49377, [address], [place], [place], [id number], 5 12:08:31 furosemide 40 mg tablet 2024 025 [facility] #12146, [address], [place], [place], [id number], 5 12:08:33 fenofibrate 160 mg tablet 2023 024 [facility] #86156, [address], [place], [place], [id number], 4 09:43:10 lisinopril 40 mg tablet 2023 024 [facility] #54687, [address], [place], [place], [id number], 4 09:43:11 atorvastati n 40 mg tablet 2023 024 [facility] #65391, [address], [place], [place], [id number], 4 09:43:07 folic acid 1 mg tablet 2023 024 [facility] #26864, [address], [place], [place], [id number], 4 09:43:08 ergocalcife rol (vitamin D2) 1,250 mcg (50,000 unit) capsule 2023 024 [facility] #08857, [address], [place], [place], [id number], 4 09:43:07 pantoprazol e 40 mg tablet,darin yed release 2023 024 [facility] #24648, [address], [place], [place], [id number], 4 09:43:11 metformin ER 500 mg tablet,exte nded release 24 hr 2023 024 [facility] #69799, [address], [place], [place], [id number], 4 09:43:11 furosemide 40 mg tablet 2023 024 [facility] #99216, [address], [place], [place], [id number], 4 09:43:08 fenofibrate 160 mg tablet 2022 023 [facility] #33453, [address], [place], [place], [id number], 3 10:46:18 lisinopril 40 mg tablet 2022 023 [facility] #07876, [address], [place], [place], [id number], 10:46:17 atorvastati n 40 mg tablet 2022 023 [facility] #33860, [address], [place], [place], [id number], 10:46:19 folic acid 1 mg tablet 2022 023 [facility] #08972, [address], [place], [place], [id number], 10:46:15 pantoprazol e 40 mg tablet,darin yed release 2022 023 [facility] #61063, [address], [place], [place], [id number], 10:46:17 metformin ER 500 mg tablet,exte nded release 24 hr 2022 023 [facility] #18274, [address], [place], [place], [id number], 10:46:18 furosemide 40 mg tablet 2022 023 [facility] #50413, [address], [place], [place], [id number], 10:46:14 Patient TargetsNo targets recorded. Patient Instructions Encounter Date Encounter Id Patient Instructions Last Modified By Organization Details Last Modified Time 04/13/2024 [id number] high blood pressure: care instructions [email or web address] Not available 04/13/2024 12:12:23 dash diet: care instructions Not available 04/13/2024 12:12:23 When You Want to Lose Weight: Care Instructions [email or web address] Not available 04/13/2024 12:19:33 type 2 diabetes: care instructions [email or web address] Not available 04/13/2024 12:19:33 06/08/2024 [id number] When You Want to Lose Weight: Care Instructions Not available 06/08/2024 10:35:23 high blood pressure: care instructions [email or web address] Not available 06/08/2024 10:35:24 dash diet: care instructions [email or web address] Not available 06/08/2024 10:35:25 type 2 diabetes: care instructions [email or web address] Not available 06/08/2024 10:35:23 Reason for Referral None Reported. Results Created Date Observation Date Name Description Value Unit Range Abnormal Flag Note LastModifiedBy Organization Detail LastModifiedTime 06/09/1906/08/2024 TEST NOT PERFO RMED test not performed SEE COMMEN T UNABL E TO PERFO RM URINE MICRO ALBUM IN DUE TO QUANT ITY OF URINE SENT WAS INSUF FICIE NT TO PERFO RM TEST. Not Available [facility] (Lab) [address] [place], [address], 06/08/2024 19:31:37 06/09/19 25 06/08/2024 URINA LYSIS COMPL ETE/I RIS W/RFX color LIGHT- YELLOW Not Available [facility] (Lab) [address] [place], [address], 06/08/2024 19:31:59 06/09/19 25 06/08/2024 URINA LYSIS COMPL ETE/I RIS W/RFX appear CLEAR Not Available [facility] (Lab) [address] [place], [address], 06/08/2024 19:31:59 06/09/19 25 06/08/2024 URINA LYSIS COMPL ETE/I RIS W/RFX specific gravity 1.018 1.001- 1.030 Not Available [facility] (Lab) [address] [place], [address], 06/08/2024 19:31:59 06/09/19 25 06/08/2024 URINA LYSIS COMPL ETE/I RIS W/RFX pH 7.0 pH_un its 5.0-9. 0 Not Available [facility] (Lab) [address] [place], [address], 06/08/2024 19:31:59 06/09/19 25 06/08/2024 URINA LYSIS COMPL ETE/I RIS W/RFX leukocytes NEGATI VE [email or web address] L negati ve- Not Available [facility] (Lab) [address] [place], [address], 06/08/2024 19:31:59 06/09/19 25 06/08/2024 URINA LYSIS COMPL ETE/I RIS W/RFX nitrite NEGATI VE negati ve- Not Available [facility] (Lab) [address] [place], [address], 06/08/2024 19:31:59 06/09/19 25 06/08/2024 URINA LYSIS COMPL ETE/I RIS W/RFX protein NEGATI VE mg/dL negati ve- Not Available [facility] (Lab) [address] [place], [address], 06/08/2024 19:31:59 06/09/19 25 06/08/2024 URINA LYSIS COMPL ETE/I RIS W/RFX glucose NORMAL mg/dL normal - Not Available [facility] (Lab) [address] [place], [address], 06/08/2024 19:31:59 06/09/19 25 06/08/2024 URINA LYSIS COMPL ETE/I RIS W/RFX ketones NEGATI VE mg/dL negati ve- Not Available [facility] (Lab) [address] [place], [address], 06/08/2024 19:31:59 06/09/19 25 06/08/2024 URINA LYSIS COMPL ETE/I RIS W/RFX urobilinogen NORMAL mg/dL normal - Not Available [facility] (Lab) [address] [place], [address], 06/08/2024 19:31:59 06/09/19 25 06/08/2024 URINA LYSIS COMPL ETE/I RIS W/RFX bilirubin NEGATI VE mg/dL negati ve- Not Available [facility] (Lab) [address] [place], [address], 06/08/2024 19:31:59 06/09/19 25 06/08/2024 URINA LYSIS COMPL ETE/I RIS W/RFX blood NEGATI VE mg/dL negati ve- Not Available [facility] (Lab) [address] [place], [address], 06/08/2024 19:31:59 06/09/19 25 06/08/2024 URINA LYSIS COMPL ETE/I RIS W/RFX white blood cells 0-8 /i??h pfi?? 0-8 Not Available [facility] (Lab) [address] [place], [address], 06/08/2024 19:31:59 06/09/19 25 06/08/2024 URINA LYSIS COMPL ETE/I RIS W/RFX red blood cells 0-4 /i??h pfi?? 0-4 Not Available [facility] (Lab) [address] [place], [address], 06/08/2024 19:31:59 06/09/19 25 06/08/2024 URINA LYSIS COMPL ETE/I RIS W/RFX bacteria NONE Not Available [facility] (Lab) [address] [place], [address], 06/08/2024 19:31:59 06/09/19 25 06/08/2024 URINA LYSIS COMPL ETE/I RIS W/RFX mucous OCCASI ONAL /i??l pfi?? abnormal Not Available [facility] (Lab) [address] [place], [address], 06/08/2024 19:31:59 06/09/19 25 06/08/2024 URINA LYSIS COMPL ETE/I RIS W/RFX squamous epithelial NONE /i??l pfi?? abnormal Not Available [facility] (Lab) [address] [place], [address], 06/08/2024 19:31:59 06/09/19 25 06/08/2024 CBC/C OMPLE TE BLD COUNT W/DIF F white blood cells 9.1 x10'3 /uL 4.2-10 .8 Not Available [facility] (Lab) [address] [place], [address], 06/08/2024 19:35:51 06/09/19 25 06/08/2024 CBC/C OMPLE TE BLD COUNT W/DIF F red blood cells 5.09 x10'6 /uL 4.10-5 .80 Not Available [facility] (Lab) [address] [place], [address], 06/08/2024 19:35:51 06/09/19 25 06/08/2024 CBC/C OMPLE TE BLD COUNT W/DIF F hemoglobin 15.7 g/dL 13.2-1 7.0 Not Available [facility] (Lab) [address] [place], [address], 06/08/2024 19:35:51 06/09/19 25 06/08/2024 CBC/C OMPLE TE BLD COUNT W/DIF F hematocrit 46.5 % 39.3-5 0.0 Not Available [facility] (Lab) [address] [place], [address], 06/08/2024 19:35:51 06/09/19 25 06/08/2024 CBC/C OMPLE TE BLD COUNT W/DIF F mean red cell volume 91.4 fL 80.0-9 7.0 Not Available [facility] (Lab) [address] [place], [address], 06/08/2024 19:35:51 06/09/19 25 06/08/2024 CBC/C OMPLE TE BLD COUNT W/DIF F mean red cell hemoglobin 30.8 pg 27.0-3 3.0 Not Available [facility] (Lab) [address] [place], [address], 06/08/2024 19:35:51 06/09/19 25 06/08/2024 CBC/C OMPLE TE BLD COUNT W/DIF F mean RBC HGB concentratio n 33.8 g/dL 31.0-3 6.0 Not Available [facility] (Lab) [address] [place], [address], 06/08/2024 19:35:51 06/09/19 25 06/08/2024 CBC/C OMPLE TE BLD COUNT W/DIF F red cell distribution width 12.2 % 11.8-1 5.5 Not Available [facility] (Lab) [address] [place], [address], 06/08/2024 19:35:51 06/09/19 25 06/08/2024 CBC/C OMPLE TE BLD COUNT W/DIF F platelets 277 x10'3 /uL 150-40 0 Not Available [facility] (Lab) [address] [place], [address], 06/08/2024 19:35:51 06/09/19 25 06/08/2024 CBC/C OMPLE TE BLD COUNT W/DIF F mean platelet volume 10.6 fL 9.0-12 .4 Not Available [facility] (Lab) [address] [place], [address], 06/08/2024 19:35:51 06/09/19 25 06/08/2024 CBC/C OMPLE TE BLD COUNT W/DIF F neutrophils 56.6 % 39.0-7 2.0 Not Available [facility] (Lab) [address] [place], [address], 06/08/2024 19:35:51 06/09/19 25 06/08/2024 CBC/C OMPLE TE BLD COUNT W/DIF F lymphocytes 30.8 % 16.0-4 7.0 Not Available [facility] (Lab) [address] [place], [address], 06/08/2024 19:35:51 06/09/19 25 06/08/2024 CBC/C OMPLE TE BLD COUNT W/DIF F monocytes 7.2 % 5.0-12 .0 Not Available [facility] (Lab) [address] [place], [address], 06/08/2024 19:35:51 06/09/19 25 06/08/2024 CBC/C OMPLE TE BLD COUNT W/DIF F eosinophils 4.4 % 1.0-7. 0 Not Available [facility] (Lab) [address] [place], [address], 06/08/2024 19:35:51 06/09/19 25 06/08/2024 CBC/C OMPLE TE BLD COUNT W/DIF F basophils 0.7 % 0.0-2. 0 Not Available [facility] (Lab) [address] [place], [address], 06/08/2024 19:35:51 06/09/19 25 06/08/2024 CBC/C OMPLE TE BLD COUNT W/DIF F immature granulocytes 0.3 % 0.00-0 .50 Not Available [facility] (Lab) [address] [place], [address], 06/08/2024 19:35:51 06/09/19 25 06/08/2024 CBC/C OMPLE TE BLD COUNT W/DIF F neutrophils, absolute count 5.12 x10'3 /uL 1.5-8. 0 Not Available [facility] (Lab) [address] [place], [address], 06/08/2024 19:35:51 06/09/19 25 06/08/2024 CBC/C OMPLE TE BLD COUNT W/DIF F lymphocytes, absolute count 2.79 x10'3 /uL 1.07-3 .43 Not Available [facility] (Lab) [address] [place], [address], 06/08/2024 19:35:51 06/09/19 25 06/08/2024 CBC/C OMPLE TE BLD COUNT W/DIF F monocytes, absolute count 0.65 x10'3 /uL 0.29-0 .99 Not Available [facility] (Lab) [address] [place], [address], 06/08/2024 19:35:51 06/09/19 25 06/08/2024 CBC/C OMPLE TE BLD COUNT W/DIF F eosinophils, absolute count 0.40 x10'3 /uL 0.02-0 .53 Not Available [facility] (Lab) [address] [place], [address], 06/08/2024 19:35:51 06/09/1906/08/2024 CBC/C OMPLE TE BLD COUNT W/DIF F basophils, absolute count 0.06 x10'3 /uL 0.01-0 .08 Not Available [facility] (Lab) [address] [place], [address], 06/08/2024 19:35:51 06/09/19 25 06/08/2024 CBC/C OMPLE TE BLD COUNT W/DIF F immature granulocytes ,absolute 0.03 x10'3 /uL 0.00-0 .05 Not Available [facility] (Lab) [address] [facility] [place], [address], 06/08/2024 19:35:51 06/09/19 25 06/08/2024 CBC/C OMPLE TE BLD COUNT W/DIF F nucleated red blood cells 0.0 % -0 Not Available [facility] (Lab) [address] [place], [address], 06/08/2024 19:35:51 06/09/19 25 06/08/2024 CBC/C OMPLE TE BLD COUNT W/DIF F NRBC# 0.00 x10'3 /uL Not Available [facility] (Lab) [address] [place], [address], 06/08/2024 19:35:51 06/09/19 25 06/08/2024 COMPR EHENS DEBBY METAB OLIC PANEL sodium 139 mmol/ L 137-14 5 Not Available [facility] (Lab) [address] [place], [address], 06/08/2024 19:54:11 06/09/19 25 06/08/2024 COMPR EHENS DEBBY METAB OLIC PANEL potassium 3.5 mmol/ L 3.5-5. 1 Not Available [facility] (Lab) [address] [place], [address], 06/08/2024 19:54:11 06/09/19 25 06/08/2024 COMPR EHENS DEBBY METAB OLIC PANEL chloride 102 mmol/ L 98-107 Not Available [facility] (Lab) [address] [place], [address], 06/08/2024 19:54:11 06/09/19 25 06/08/2024 COMPR EHENS DEBBY METAB OLIC PANEL carbon dioxide 32 mmol/ L 22-30 high Not Available [facility] (Lab) [address] [place], [address], 06/08/2024 19:54:11 06/09/19 25 06/08/2024 COMPR EHENS DEBBY METAB OLIC PANEL anion gap 8.5 mmol/ L 14-22 low Not Available [facility] (Lab) [address] [place], [address], 06/08/2024 19:54:11 06/09/19 25 06/08/2024 COMPR EHENS DEBBY METAB OLIC PANEL glucose 115 mg/dL 70-99 high Not Available [facility] (Lab) [address] [place], [address], 06/08/2024 19:54:11 06/09/19 25 06/08/2024 COMPR EHENS DEBBY METAB OLIC PANEL BUN 15 mg/dL 8-19 Not Available [facility] (Lab) [address] [place], [address], 06/08/2024 19:54:11 06/09/19 25 06/08/2024 COMPR EHENS DEBBY METAB OLIC PANEL creatinine 0.76 mg/dL 0.66-1 .25 Not Available [facility] (Lab) [address] [place], [address], 06/08/2024 19:54:11 06/09/19 25 06/08/2024 COMPR EHENS DEBBY METAB OLIC PANEL GFR >60 Refer ence Range : [place]ell ge GFR Healt hy Adult : >60 mL/mi n/1.7 3 m2 Chron ic Kidne y Disea se: 15-60 mL/mi n/1.7 3 m2 Kidne y Failu re: <15/m L/min /1.73 m2 www.n iddk. nih.g ov The MDRD study equat ion has not been valid ated in child olga <18 years of age; pregn ant women ; the elder ly >85 years of age; or in some racia l or ethni c subgr oups, such as Hispa nics. Outsi de the valid ated shailesh eters , estim ated GFR is less accur ate, requi ring clini koby judgm ent on a case- by-ca se basis . Clini koby inter preta tion for other races and ages must be made by the clini jamey. The MDRD study equat ion has not been valid ated for the evalu ation of serum creat inine relat ed to nutri butch l statu s or medic ation usage . For perso ns <18 years of age, a pedia tric GFR calcu lator is avail able on the [facility] websi te: https ://carolina w.dougie robbinsy.o rg/pr ofess ional s/kdo qi/gf r_cal culat or Not Available [facility] (Lab) [address] [place], [address], 06/08/2024 19:54:11 06/09/19 25 06/08/2024 COMPR EHENS DEBBY METAB OLIC PANEL alkaline phosphatase 53 U/L 38-126 Not Available [facility] (Lab) [address] [place], [address], 06/08/2024 19:54:11 06/09/19 25 06/08/2024 COMPR EHENS DEBBY METAB OLIC PANEL alanine aminotransfe rase 115 U/L 0-50 high Not Available [facility] (Lab) [address] [place], [address], 06/08/2024 19:54:11 06/09/19 25 06/08/2024 COMPR EHENS DEBBY METAB OLIC PANEL aspartate aminotransfe rase 74 U/L 15-46 high Not Available [facility] (Lab) [address] [place], [address], 06/08/2024 19:54:11 06/09/19 25 06/08/2024 COMPR EHENS DEBBY METAB OLIC PANEL bilirubin, total 0.50 mg/dL 0.20-1 .30 Not Available [facility] (Lab) [address] [place], [address], 06/08/2024 19:54:11 06/09/19 25 06/08/2024 COMPR EHENS DEBBY METAB OLIC PANEL calcium 9.8 mg/dL 8.4-10 .2 Not Available [facility] (Lab) [address] [place], [address], 06/08/2024 19:54:11 06/09/19 25 06/08/2024 COMPR EHENS DEBBY METAB OLIC PANEL total protein 7.5 g/dL 6.3-8. 2 Not Available [facility] (Lab) [address] [place], [address], 06/08/2024 19:54:11 06/09/19 25 06/08/2024 COMPR EHENS DEBBY METAB OLIC PANEL albumin 5.0 g/dL 3.4-5. 0 Not Available [facility] (Lab) [address] [place], [address], 06/08/2024 19:54:11 06/09/19 25 06/08/2024 COMPR EHENS DEBBY METAB OLIC PANEL globulin 2.5 g/dL 2.6-4. 2 low Not Available [facility] (Lab) [address] [place], [address], 06/08/2024 19:54:11 06/09/19 25 06/08/2024 COMPR EHENS DEBBY METAB OLIC PANEL A/G ratio 2.0 ratio 1.0-2. 0 Not Available [facility] (Lab) [address] [place], [address], 06/08/2024 19:54:11 06/09/19 25 06/08/2024 LIPID PANEL cholesterol 160 mg/dL 140-19 9 [facility] ROBERT NSUS RECOM MENDA TION FOR ERIBERTO STERO L: ADULT CHILD LOW RISK: <200 <170 BORDE RLINE : <200- 239 ----- HIGH RISK: >240 >200 Not Available [facility] (Lab) [address] [place], [address], 06/08/2024 19:54:16 06/09/19 25 06/08/2024 LIPID PANEL triglyceride s 344 mg/dL 0-150 high NIH ROBERT NSUS REPOR T RECOM MENDA TION FOR TRIGL YCERI ANGELY: ADULT CHILD LOW RISK: <150 ----- BODER LINE: 150-1 99 ----- HIGH RISK: >200 ----- Not Available [facility] (Lab) [address] [place], [address], 06/08/2024 19:54:16 06/09/19 25 06/08/2024 LIPID PANEL HDL cholesterol 61 mg/dL 40- Not Available [facility] [place] (Lab) [address] [place], [address], 06/08/2024 19:54:16 06/09/19 25 06/08/2024 LIPID PANEL LDL cholesterol, calculated 30 mg/dL 0-130 NIH ROBERT NSUS REPOR T RECOM MENDA TIONS FOR LDL: ADULT CHILD LOW RISK <130 <110 (OPTI MAL LDL) <100 ----- BORDE RLINE : 130-1 59 ----- HIGH RISK: >160 >130 A TRIGL YCERI DE RESUL T >400 INVAL IDATE S THE CALCU LATIO N FOR LDL FRACT IONAT ION - THE LDL RESUL T WILL NOT BE REPOR ALDO. Not Available [facility] (Lab) [address] [place], [address], 06/08/2024 19:54:16 06/09/1906/08/2024 MAGNE SIUM magnesium 1.2 mg/dL 1.6-2. 3 low Not Available [facility] (Lab) [address] [place], [address], 06/08/2024 19:54:18 06/09/19 25 06/08/2024 VITAM IN D 25-HY DROXY vd25oh 43.2 NG/mL 30-100 Vitam in D Statu s: Defic ient: <20 ng/mL Insuf ficie nt: 20-29 ng/mL Suffi cient : 30-10 0 ng/mL Not Available [facility] (Lab) [address] [place], [address], 06/08/2024 20:08:49 06/09/19 25 06/08/2024 HEMOG LOBIN A1C HA1C 6.0 % 4.0-6. 0 Diabe christos Scree luan Crite familia: <5.7% Consi stent with absen ce of diabe christos 5.7-6 .4% Consi stent with incre ased risk for diabe christos (pred iabet es) >OR=6 .5% Consi stent with diabe christos REFER ENCE: Diabe christos Care 2016, 39(Hay ppl.1 ):s13 -s22 Not Available [facility] (Lab) [address] [place], [address], 06/08/2024 20:14:35 06/09/19 25 06/08/2024 TSH W/REF STEPHANIE FT4 TSH with reflex free T4 1.510 uIU/m L 0.465- 4.680 Not Available [facility] (Lab) [address] [place], [address], 06/08/2024 20:25:16 06/09/19 25 06/08/2024 PSA, TOTAL PSA, total 0.49 NG/mL 0.00-4 .00 Not Available [facility] (Lab) [address] [place], [address], 06/08/2024 20:25:18 06/09/19 25 06/08/2024 VITAM IN B12 (ZAKI JOHNNY ) vb12 591 pg/mL 239-93 1 Not Available [facility] (Lab) [address] [place], [address], 06/08/2024 20:57:56 06/09/19 25 06/08/2024 FOLAT E, SERUM /PLAS MA folate >20.0 NG/mL 2.76-2 0.0 Not Available [facility] (Lab) [address] [place], [address], 06/08/2024 20:57:58 06/09/19 25 06/09/2024 PSA SCREE N PSA medicare screen 0.49 NG/mL 0.00-4 .00 Not Available [facility] (Lab) [address] [place], [address], 06/09/2024 07:57:44 12/04/19 23 12/03/2022 MRI, brain + brain stem, w/wo contr ast No observ ation record ed. [address] [address], [place], [address], 12/10/2022 10:38:39 02/12/20 23 02/11/2023 MRI, brain + brain stem, w/wo contr ast No observ ation record ed. [address] [address], [place], [address], 02/18/2023 10:52:47 04/15/19 24 04/15/2023 MRI, brain + brain stem, w/wo contr ast No observ ation record ed. [address] [address], [place], [address], 04/13/2024 12:04:35 06/24/19 24 06/24/2023 MRI, brain + brain stem, w/wo contr ast No observ ation record ed. [address] [address], [place], [address], 04/13/2024 12:04:35 08/26/19 24 08/26/2023 MRI, brain + brain stem, w/wo contr ast No observ ation record ed. [address], [place], [address], 06/08/2024 10:35:56 10/28/19 24 10/28/2023 MRI, brain + brain stem, w/wo contr ast No observ ation record ed. [address], [place], [address], 04/13/2024 12:04:34 01/13/20 24 01/13/2024 MRI, brain + brain stem, w/wo contr ast No observ ation record ed. [address], [place], [address], 04/13/2024 12:04:34 04/06/19 25 04/06/2024 MRI, brain + brain stem, w/wo contr ast No observ ation record ed. [address], [place], [address], 04/13/2024 12:04:33 Result Notes None recorded. Problems Name Problem SNOMED Code Status Onset Date Resolution Date Notes Provider Name and Address Organization Details Recorded Time Seizure disorder 101698531 Active 2021 Not Available [facility] 3 09:19:41 Harmful pattern of use of alcohol 37396230 Active 2020 Not Available [facility] 3 09:19:41 Alcohol withdrawa l 682645575 Active 2021 Not Available [facility] 3 09:19:41 Claustrop hobia 57524268 Active 2021 Not Available [facility] 3 09:19:41 Astrocyto ma of brain 950682651 Active 2021 Not Available [facility] 3 09:19:41 Adult health examinati on Active 2021 Not Available [facility] 3 09:19:42 Tendernes s of spleen 171760216 Completed Not Available [facility] 3 09:19:42 Screening for disorder Active 2021 Not Available [facility] 3 09:19:42 Vitamin D deficienc y 68443337 Active 2021 Not Available [facility] 3 09:19:42 Hypertens debby disorder 85450828 Active 2020 Not Available [facility] 3 09:19:42 Obesity 627473607 Active 2020 Not Available [facility] 3 09:19:42 Pain of left knee joint 83406994369 4107 Active 2021 Not Available [facility] 3 09:19:43 Hyperlipi demia 18076033 Active 2021 Not Available [facility] 3 09:19:43 Dyspnea on exertion 05239743 Active 2020 Not Available [facility] 3 09:19:43 Alcohol dependenc e 49507402 Active 2021 Not Available [facility] 3 09:19:43 Muscle pain 30089629 Completed Not Available [facility] 3 09:19:43 Liver enzymes level above reference range 456686882 Active 2021 Not Available [facility] 3 09:19:43 Smoker 81610253 Active 2020 Not Available [facility] 3 09:19:44 Fatigue 42043181 Active 2022 Romel Frias MD [address], [address] , [employer] [facility] 3 09:49:25 Type 2 diabetes mellitus without complicat ion 692776428 Active 2022 Romel Frias MD [address], [address] , [employer] [facility] 3 09:50:05 Pneumonia 723725707 Active 2022 Romel Frias MD [address], [address] , [employer] [facility] [email or web address] [facility] 3 10:33:52 Anxiety disorder 710851996 Active 2022 Romel Frias MD [address], [address] , [employer] 3 10:35:23 Post-acut e COVID-19 8493809083 Active 2022 Romel Frias MD [address], [place], [address] , [employer] 3 11:15:08 Hypertrig lyceridem ia 169385281 Active 2022 Rmoel Frias MD [address], [place], [address] , [employer] 3 10:42:02 Cigarette smoker 93862777 Active 2022 Romel Frias MD [address], [place], [address] , [employer] 3 10:54:57 History of alcohol abuse 512217258 Active 2022 Romel Frias MD [address], [place], [address] , [employer] 3 10:55:17 Gastroeso phageal reflux disease without esophagit is 081162203 Active 2022 Romel Frias MD [address], [place], [address] , [employer] 3 10:55:17 Congestiv e heart failure 94847063 Active 2022 Romel Frias MD [address], [place], [address] , [employer] 3 10:55:17 Problem Notes None recorded. Procedures Surgical History Date Name Laterality Status Provider Name and Address Organization Details Recorded Time 5 Smoking Cessation completed MD [address], [place], [address], [employer] 06/08/2024 10:27:29 5 Smoking Cessation completed MD [address], [place], [address], [facility] [employer] [facility] 04/13/2024 12:18:40 3 Smoking Cessation completed Romel Frias MD [address] [facility] [address], [place], [address], [facility] [employer] [facility] 02/18/2023 10:53:05 3 Smoking Cessation completed Romel Frias MD [address] [facility] [address], [place], [address], [facility] [employer] [facility] 12/10/2022 10:47:50 Imaging Results None recorded. Procedure Notes None recorded. Medical Equipment None Reported. Allergies No known drug allergies Medications Name Sig Start Date Stop Date Status Note LastModified by Organization Details LastModified Time furosemide 40 mg tablet TAKE 1 TABLET BY MOUTH EVERY DAY IN THE MORNING active Not Available Not Available No t Available atorvastat in 40 mg tablet Take 1 tablet every day by oral route at bedtime for 90 days. 2024 active Not Available Not Available Not Avai lable atorvastat in 20 mg tablet TAKE 1 TABLET BY MOUTH EVERY DAY AT BEDTIME 04/13 completed Not Available Not Available Not Available metoprolol succinate ER 50 mg tablet,ext ended release 24 hr TAKE 1 TABLET BY MOUTH EVERY DAY DIRECTED active Not Available Not Available No t Available levetirace stinson 500 mg tablet active Not [...] Not Available Not Available Not Avai lable ergocalcif mahendra (vitamin D2) 1,250 mcg (50,000 unit) capsule TAKE 1 CAPSULE BY MOUTH EVERY WEEK DIRECTED active Not Available Not Available No t Available lorazepam 1 mg tablet TAKE 1 TABLET BY MOUTH 1 HOUR PRIOR TO MRI AND 1 TABLET BY MOUTH 15 MINUTES PRIOR TO MRI active Not Available Not Available No [...] active Not Available Not Available Not Available Radha Crenshaw U-100 Insulin 100 unit/mL (3 mL) subcutaneo 12/10 completed Not Available Not Available Not Available OneTouch Delica Plus Lancet 33 gauge active Not Available Not Available Not Available Vitals Date Recorded Oxygen saturation Oxygen saturation in Arterial blood by Pulse oximetry Heart rate Provider Name and Address Organization Details Last Updated DateTime 04/13/2024 95 % 95 % 100 /min Romel Frias MD [address], [place], [address], [facility] [employer] 04/13/2024 12:15:50 Date Recorded Body height Body mass index (BMI) Body weight Body temperature Systolic blood pressure Diastolic blood pressure Provider Name and Address Organization Details Last Updated DateTime 5 187.96 cm 36.5 kg/m2 042440. 23 g 98.2 [degF] 150 mm[Hg] 90 mm[Hg] Zaina Vasques RN [facility] [employer] 5 12:02:57 Date Recorded Heart rate Provider Name an d Address Organization Details Last Updated DateTime 04/15/2023 94 /min Royce Michelle [address], [place], [address], [facility] [employer] 04/15/2023 09:35:12 Date Recorded Body height Body mass index (BMI) Body weight Body temperature Oxygen saturation Oxygen saturation in Arterial blood by Pulse oximetry Systolic blood pressure Diastolic blood pressure Provider Name and Address Organization Details Last Updated DateTime 4 187.96 cm 36.6 kg/m2 730640. 18 g 98 [degF] 98 % 98 % 128 mm[Hg] 80 mm[Hg] Andres Gaitan [facility] [employer] 4 09:34:12 Date Recorded Heart rate Provider Name an d Address Organization Details Last Updated DateTime 06/08/2024 98 /min Royce Michelle [address], [place], [address], [facility] [employer] [facility] 06/08/2024 10:43:58 Date Recorded Body height Body mass index (BMI) Body weight Body temperature Oxygen saturation Oxygen saturation in Arterial blood by Pulse oximetry Systolic blood pressure Diastolic blood pressure Provider Name and Address Organization Details Last Updated DateTime 5 187.96 cm 35.7 kg/m2 435394. 78 g 97.1 [degF] 95 % 95 % 150 mm[Hg] 80 mm[Hg] Zaina Vasques RN [facility] [employer] [facility] 5 10:24:11 Date Recorded Oxygen saturation Oxygen saturation in Arterial blood by Pulse oximetry Provider Name and Address Organization Details Last Updated DateTime 12/10/2022 96 % 96 % Romel Frias MD [address] [place] [address], [address] [employer] [facility] 12/10/2022 10:46:17 Date Recorded Body height Body mass index (BMI) Body weight Body temperature Heart rate Systolic blood pressure Diastolic blood pressure Provider Name and Address Organization Details Last Updated DateTime 3 187.96 cm 33.8 kg/m2 071604. 59 g 97.7 [degF] 76 /min 144 mm[Hg] 84 mm[Hg] Yadi Jimenez MA [facility] [employer] [facility] 3 10:36:40 Date Recorded Body height Body mass index (BMI) Body weight Body temperature Heart rate Respiratory rate Oxygen saturation Oxygen saturation in Arterial blood by Pulse oximetry Systolic blood pressure Diastolic blood pressure Provider Name and Address Organization Details Last Updated DateTime 3 187.96 cm 34.7 kg/m2 170572. 94 g 98 [degF] 78 /min 18 /min 98 % 98 % 140 mm[Hg] 80 mm[Hg] Andres Gaitan [facility] [employer] [facility] 3 10:51:11 Social History Question Answer Notes LastModified by Organizat ion Details LastModified Time Tobacco Smoking Status Current Every Day Smoker Not Available [facility] 05/02/2022 09:13:38 Do You Have An Advance Directive? No MIGRATION.75179 [id number] Information not available 05/02/2022 How Many Years Have You Consumed Alcohol? 16 [email or web address] Information not available 06/08/2024 Do You Wear A Helmet When Biking? No MIGRATION.54659 07424 Information not available 05/02/2022 What Is Your Level Of Caffeine Consumption? Occasional Maybe If One Energy Drink Per Day [email or web address] Information not available 06/08/2024 In The 14 Days Before Symptom Onset, Have You Had Close Contact With A Laboratory-confir med COVID-19 While That Case Was Ill? No MIGRATION.16875 50892 Information not available 05/02/2022 In The 14 Days Before Symptom Onset, Have You Had Close Contact With A Person Who Is Under Investigation For COVID-19 While That Person Was Ill? No MIGRATION.37539 63675 Information not available 05/02/2022 What Type Of Diet Are You Following? REGULAR MIGRATION.17294 73100 Information not available 05/02/2022 What Is The Highest Grade Or Level Of School You Have Completed Or The Highest Degree You Have Received? [id number] MIGRATION.91772 61661 Information not available 05/02/2022 Have There Been Any Changes To Your Family Or Social Situation? No MIGRATION.59618 07577 Information not available 05/02/2022 Are There Any Guns Present In Your Home? No MIGRATION.18923 64221 Information not available 05/02/2022 Do You Use Insect Repellent Routinely? No MIGRATION.72940 15345 Information not available 05/02/2022 Do You Have A Medical Power Of Harness Tier? No MIGRATION.60788 10806 Information not available 05/02/2022 What Is Your Current Pack Years? 10-19packyears Information not available 06/08/2024 Have You Ever Been Counseled For Unhealthy Alcohol Use? No MIGRATION.42168 42020 Information not available 05/02/2022 What Is Your Relationship Status? Single MIGRATION.19221 36140 Information not available 05/02/2022 Do You Use Your Seat Belt Or Car Seat Routinely? Yes MIGRATION.30898 82574 Information not available 05/02/2022 Do You Have Smoke And Carbon Monoxide Detectors In Your Home? Yes MIGRATION.31435 81157 Information not available 05/02/2022 At What Age Did You Start Smoking Tobacco? 21 [email or web address] Information not available 06/08/2024 Are You Passively Exposed To Smoke? Yes MIGRATION.28995 15795 Information not available 05/02/2022 Are There Any Smokers In Your House? No MIGRATION.30278 50473 Information not available 05/02/2022 How Much Tobacco Do You Smoke? 1 PPD MIGRATION.72499 10264 Information not available 05/02/2022 Do You Participate In Social Media? No MIGRATION.77727 97802 Information not available 05/02/2022 Do You Use Sunscreen Routinely? No MIGRATION.60377 05356 Information not available 05/02/2022 Has Tobacco Cessation Counseling Been Provided? No MIGRATION.73509 32383 Information not available 05/02/2022 How Many Years Have You Smoked Tobacco? 17 [email or web address] Information not available 06/08/2024 Have You Recently Traveled Abroad? No MIGRATION.75693 72242 Information not available 05/02/2022 Are You Currently In School? No MIGRATION.89738 74347 Information not available 05/02/2022 Do You Have Any Dietary Restrictions? No MIGRATION.68362 49146 Information not available 05/02/2022 Sex: Male Functional Status Question Answer Note LastModified by Organizat ion Details LastModified Time Do you use any illicit or recreational drugs? No MIGRATION.76022 91782 Information not available 05/02/2022 Do you or have you ever used any other forms of tobacco or nicotine? No MIGRATION.61729 90076 Information not available 05/02/2022 What is your level of alcohol consumption? 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 Moderate MIGRATION.41493 78942 Information not available 05/02/2022 Mental Status Question Answer Note LastModified by Organizat ion Details LastModified Time Do you feel stressed (tense, restless, nervous, or anxious, or unable to sleep at night)? [id number] MIGRATION.[id number] 6 Information not available 05/02/2022 Family History Relationship Description Onset Age of this Age Resolved Age Notes LastModified by Organization Details LastModified Time Unspecified Relation Hypertensive disorder MIGRATION.[id number] Not available 05/02/2022 09:14:04 Medical History Condition Response BLINDNESS N RHEUMATIC FEVER N KIDNEY STONES N BLADDER PROBLEMS N MRSA N OTHER # 1 N POLIO N LUNG DISEASE/DISORDER N HISTORY OF DRUG ABUSE N COPD N RADIATION / CHEMOTHERAPY N Other # 2 N BLOOD DISEASES N SURGERY N EAR OR HEARING PROBLEMS N MUMPS N SHINGLES N BOWEL PROBLEMS N FEMALE PROBLEMS / INFECTIONS N DEPRESSION (INCLUDING POST ) N STROKE/TIA N THYROID DISEASE N ULCERS N BENIGN PROSTATIC HYPERPLASIA N MEASLES N CERVICALGIA N TB SKIN TEST N HYPOTENSION N MYOCARDIAL INFARCTION N OBESITY N PAR[place]IA N GERD/NAUSEA N ANEURYSM N URINARY/BLADDER/KIDNEY PROBLEMS [...] HAVE YOU BEEN HOSPITALIZED OR SEEN IN [facility] ER IN THE PAST YEAR ? N ATHEROSCLEROSIS [...] Influenza, split virus, quadrivalent, PF 02/19/2023 completed Andres eugene [place] - [facility] 02/19/2023 14:56:09 Past Encounters Encounter ID Performer Location Encounter Start Date Encounter Closed Date Diagnosis/Indication Diagnosis SNOMED-CT Code Diagnosis ICD10 Code Diagnosis Note [id number] Romel Frias MD [facility] [address] [place] [address] 07/18/2020 00:00:00 07/18/2020 15:45:09 [id number] Romel Frias MD [facility] [address] [place] [address] 08/15/2020 00:00:00 08/15/2020 12:49:43 [id number] Romel Frias MD [facility] [place] [address] [place] [address] 10/31/2020 00:00:00 10/31/2020 14:45:29 [id number] Romel Frias MD [facility] [place] [address] [place] [address] 05/08/2021 00:00:00 05/08/2021 16:12:31 [id number] Romel Frias MD [facility] [place] [address] [place] [address] 06/19/2021 00:00:00 06/19/2021 11:28:37 [id number] Romel Frias MD [facility] [place] [address] [place] [address] 01/17/2022 00:00:00 01/17/2022 17:19:56 [id number] Romel Frias MD [facility] [place] [address] [place] [address] 05/29/2022 09:18:36 05/29/2022 11:24:46 Hospital inpatient stay within past 30 days 1662895688 106 Z76.89 Fever 070156995 R50.9 Fatigue 03473380 R53.83 Diabetic ketoacidosis 42 9469105 E13.10 Type 2 malachi betes mellitus without complication 427629743 E11.9 Astrocytoma of brain 254 652200 C71.9 Seizure disorder 3921269 02 G40.909 Pneumonia 278600273 J18. 9 Anxiety disorder 9785960 06 F41.9 Sepsis 22984439 A41.9 Post-acute COVID-19 1119 394595 U09.9 [id number] Romel Frias MD [address] [address] 12/10/2022 10:27:35 12/10/2022 10:59:57 Astrocytoma of brain 155513922 C71.9 Hypertensive disorder 38 110068 I10 Obesity 508205497 E66.9 Seizure disorder 4756883 02 G40.909 Type 2 malachi betes mellitus without complication 856700078 E11.9 Hyperlipidemia 15284009 E78.5 Hypertriglyceridemia 302 197048 E78.2 Gastroesop hageal reflux disease without esophagitis 245551874 K21.9 History of alcohol abuse 132093794 F10.10 Congestive heart failure 15435270 I50.9 Cigarette smoker 3035089 7 F17.210 Alcohol dependence 93533 003 F10.20 Vitamin D deficiency 347 75409 E55.9 [id number] Romel Frias MD [address] [address] 02/18/2023 10:44:44 02/18/2023 11:05:52 Adult health examination 215811306 Z00.00 Vitamin D deficiency 347 93843 E55.9 Type 2 malachi betes mellitus without complication 126598217 E11.9 Obesity 745111139 E66.9 Gastroesop hageal reflux disease without esophagitis 636095085 K21.9 Alcohol dependence 92961 003 F10.20 Administra tion of influenza vaccine 35954053 Z23 Cigarette smoker 1562636 7 F17.457 [id number] Romel Frias MD [address] [address] 04/15/2023 09:28:34 04/15/2023 10:01:54 Vitamin D deficiency 84987297 E55.9 Type 2 malachi betes mellitus without complication 089603544 E11.9 Obesity 171875752 E66.9 Gastroesop hageal reflux disease without esophagitis 682544131 K21.9 Alcohol dependence 68970 003 F10.20 Cigarette smoker 0258926 7 F17.210 Hypertensive disorder 38 437311 I10 Congestive heart failure 71438866 I50.9 Hypertriglyceridemia 302 264603 E78.2 Hyperlipidemia 08223449 E78.5 History of alcohol abuse 261781513 F10.10 [id number] Romel Frias MD [address] [address] 04/13/2024 11:46:33 04/13/2024 12:15:47 Gastroesophageal reflux disease without esophagitis 815736262 K21.9 Vitamin D deficiency 347 65723 E55.9 Type 2 malachi betes mellitus without complication 289526806 E11.9 Obesity 838102649 E66.9 Alcohol dependence 90031 003 F10.20 Cigarette smoker 9129355 7 F17.210 Hypertensive disorder 38 308013 I10 Congestive heart failure 20450749 I50.9 Hypertriglyceridemia 302 516900 E78.2 Hyperlipidemia 57249015 E78.5 History of alcohol abuse 922189189 F10.10 [id number] Romel Frias MD [address] [address] 06/08/2024 10:16:09 06/08/2024 10:54:26 Hypertensive disorder 39222011 I10 Congestive heart failure 32012810 I50.9 Type 2 malachi betes mellitus without complication 557636983 E11.9 Gastroesop hageal reflux disease without esophagitis 312403534 K21.9 Vitamin D deficiency 347 52755 E55.9 Obesity 098177175 E66.9 Alcohol dependence 86045 003 F10.20 Cigarette smoker 3896397 7 F17.210 Hypertriglyceridemia 302 226228 E78.2 Hyperlipidemia 52939159 E78.5 History of alcohol abuse 252321948 F10.10 Adult heal th examination 383856463 Z00.00 Health Concerns Section Related Observation LastModified by Organization Detai ls LastModified Time None Recorded Concern Status LastModified by Organization Details LastModified Time None Recorded Advance Directives Directive N: Payers Encounter Date Sequence Insurance Name Policy Number Policy Singh Covered Member ID Singh Member ID Guarantor Name 12/10/2022 1 [id number] Jerald C Lindow [id number] Jerald C Lindow 02/18/2023 1 [id number] Jerald C Lindow [id number] Jerald C Lindow 04/15/2023 1 [id number] Jerald C Lindow [id number] Jerlad C Lindow 04/13/2024 1 [id number] Jerald C Lindow [id number] Jerald C Lindow 06/08/2024 1 [id number] Jerald C Lindow [id number] Jerald C Lindow Notes Date Note Type Note Provider Name and Address Organization Details Recorded Time 12/10/2022 text/html ACV:Here with kenneth gabriel. Pt needs refills on his chronic meds. Doing overall well and denies any new concern. Denies any problem with meds. Pt is f/u with Dr. Rowland ([facility]) at [facility] for his h/o brain cancer and seizures and he has finished all chemo and radiation therapy and he got MRI brain with them recently too. Still smoking and alcohol ++. Last visit in 01/23. Romel Frias MD [address] [address], [place], [address], [facility] [employer] [facility] [employer] 12/10/2022 10:58:21 02/18/2023 text/html Pt is here with mom for his annual exam. Doing overall well and denies any new concern. Denies any problem with meds. Pt is f/u with Dr. Rowland ([facility]) at [facility] for his h/o astrocytoma and seizures and he has finished all chemo and radiation therapy. Pt is getting scans with them every few months. Still smoking and alcohol ++. Romel Frias MD [address] [address], [place], [address], [facility] [employer] [facility] [employer] 02/18/2023 11:19:04 04/15/2023 text/html Pt is here with mom for f/u on his annual labs and chronic conditions. Doing overall well and denies any new concern. Denies any problem with meds. Somehow, we don't have any of his lab results yet. Pt is f/u with Dr. Rowland (Onco) at [facility] for his h/o astrocytoma and seizures and he has finished all chemo and radiation therapy. Pt is getting scans with them every 2-4 months. Still smoking and alcohol ++. 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 Romel Frias MD [address], [place], [address], [email or web address] 04/15/2023 09:52:49 04/13/2024 text/html Pt is here [...] is f/u with Dr. Rowland (Onco) at [facility] for his h/o astrocytoma and seizures and he has finished all chemo and radiation therapy. Pt is getting scans with them every 2-4 months. Still smoking and alcohol ++. 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 Romel Frias MD [address], [place], [address], [email or web address] 04/13/2024 12:20:57 06/08/2024 text/html Pt is here [...] is f/u with Dr. Rowland (Onco) at [facility] for his h/o astrocytoma and seizures and he has finished all chemo and radiation therapy. Pt is getting scans with them every 2-4 months. Still smoking and alcohol ++. 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 Romel Frias MD [address] [place] [address], [place], [address], [place] - [facility] [email or web address] 06/08/2024 10:51:02
== END 2024-08-10 09:05 | disposition home or self-care (01) ==
PROVIDERS: PCP Family Medicine; Visit Provider Internal Medicine Hematology & Oncology
DX: C71.9 Malignant neoplasm of brain, unspecified (principal)
CPT/HCPCS: 70553; A9579

== ENCOUNTER 2024-08-17 09:37 | Outpatient (CLI) | payer BC, SELFPAY ==
[2024-08-17 09:54] LABS: Basophils Absolute Auto 0.1 K/mm3 (0.0-0.1); Basophils Percent Auto 0.8 % (0.2-1.2); Eosinophils Absolute Auto 0.4 K/mm3 (0-0.3); Eosinophils Percent Auto 4.2 % (0-4.4); Hematocrit 43.7 % (42.0-52.0); Hemoglobin 14.8 g/dL (14.0-18.0); Immature Granulocyte Absolute 0.04 K/mm3 (0.00-0.031); Immature Granulocyte Percent A 0.5 % (0-0.5); Lymphocytes Absolute Auto 2.15 K/mm3 (0.9-3.2); Lymphocytes Percent Auto 25.6 % (18.3-44.2); Mean Corpuscular HGB Conc 33.9 g/dl (32-36); Mean Corpuscular Hemoglobin 30.8 pg (26-34); Mean Corpuscular Volume 90.9 fl (80-100); Mean Platelet Volume 9.8 fl (7.4-10.4); Monocytes Absolute Auto 0.6 K/mm3 (0.1-0.6); Monocytes Percent Auto 7.6 % (2.6-8.5); Neutrophils Absolute Auto 5.2 K/mm3 (1.3-6.7); Neutrophils Percent Auto 61.3 % (45.5-73.1); Platelet Count Result 239 k/mm3 (150-375); Red Blood Count 4.81 M/mm3 (4.6-6.20); White Blood Count 8.4 K/mm3 (4.5-10.0)
[2024-08-17 10:03] LABS: Blood Urea Nitrogen 13 mg/dL (8-26); Carbon Dioxide 31 mmol/L (22-30); Chloride 98 mmol/L (98-109); Estimated Glomerular Filt Rate > 60; Glucose 139 mg/dL (70-105); Ionized Calcium (POC) 1.08 mmol/L (1.11-1.31); Sodium 143 mmol/L (138-146)
--- OUTSIDE RECORDS SUMMARY | 2024-08-17 10:11 | XMS_ITS | Encounter Summary ---
Author Organization [facility] [facility] Address [address] [place] [address] Care Team Providers Care Geology Professor Name Role Phone Unavailable Primary Care Provider Unavailabl e Reason for Referral * MRI (Routine) - Pending Review Specialty Diagnoses / Procedures Referred By Arsi cabrera Referred To Contact Diagnoses Low grade glioma of brain (CMS/HCC) Procedures MRI BRAIN W WO CONTRAST Kana Rowland MD [address] [place] [phone] Phone: tel: fax: Referral ID Status Reason Start Date Expiration Date V isits Requested Visits Authorized [id number] Pending Review 08/17/2024 09/17/2025 1 1 Encounter Details Date Type Department Care Team (Late st Contact Info) Description 08/17/2024 9:45 AM CDT Office Visit [facility] Oncology and Hematology - [address] [facility] [address] [place] [address] Kana Rowland MD [address] [place] [address] Low grade glioma of brain [...] on file 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 Gender Identity Not on file Sexual Orientation Not on file documented as of this encounter Last Filed Vital Signs Vital Sign Reading Time Taken Comments Blood Pressure 158/97 08/17/2024 10:07 AM CDT Pulse 101 08/17/2024 10:03 AM CDT Temperature 37 C (98.6 F) 08/17/2024 10:03 AM CDT Respiratory Rate 15 08/17/2024 10:03 AM CDT Oxygen Saturation 93% 08/17/2024 10:03 AM CDT Inhaled Oxygen Concentration - - Weight 123.8 kg (273 lb) 08/17/2024 10:03 AM CDT Height - - Body Mass Index 35.05 05/16/2023 2:11 PM CDT documented in this encounter Plan of Treatment Upcoming Encounters Date Type Department Care Team (Late st Contact Info) Description 09/30/2024 2:00 PM CDT Office Visit [facility] Neurology [address] [place] [address] Damon Sunshine MD [address] [facility] [address] [place] [address] Scheduled Orders Name Type Priority Associated Diagnoses Orde r Schedule CBC WITH DIFFERENTIAL Lab Stat Low grade glioma of brain (CMS/HCC) Expected: 11/09/2024, Expires: 08/17/2025 COMPREHENSIVE METABOLIC PANEL Lab Stat Low grade glioma of brain (CMS/HCC) Expected: 11/09/2024, Expires: 08/17/2025 MRI BRAIN W WO CONTRAST Imaging Routine Low grade glioma of brain (CMS/HCC) Expected: 11/02/2024, Expires: 08/17/2025 documented as of this encounter Visit Diagnoses Diagnosis Low grade glioma of brain (CMS/HCC)- Primary Malignant neoplasm of brain, unspecified site documented in this encounter
--- OUTSIDE RECORDS SUMMARY | 2024-08-17 10:12 | XMS_ITS | Encounter Summary ---
Author Organization [email or web address] Address [address] [place] [address] Care Team Providers Care Mental Health Aides Teacher Name Role Phone Unavailable Primary Care Provider Unavailabl e Reason for Visit * Reason Comments Med Refill Encounter Details Date Type Department Care Team ([facility] Contact Info) Description 05/19/2022 Refill [facility] Oncology and Hematology - [place] [place] [address] Kana Rowland MD [address] [place] [address] Social History Tobacco Use Types [...] on file 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 No / Unsure 05/21/2022 11:39 AM CDT documented as of this encounter Plan of Treatment Upcoming Encounters Date Type Department Care Team (Late Contact Info) Description 09/30/2024 2:00 PM CDT Office Visit [facility] [address] [facility] [address] [place] [address] Damon Sunshine MD [address] [facility] [address] [place] [phone] documented as of this encounter Visit Diagnoses Not on filedocumented in this encounter Additional Health Concerns Infection Onset Date Last Indicated Resolved Time COVID-19 Comment:Symptom onset: 05/20 Positive test: 05/21 Immunocompromised-chemo 05/20/2022 05/21/2022 08/20/2022 1:16 AM C DT documented as of this encounter
--- OUTSIDE RECORDS SUMMARY | 2024-08-17 10:12 | XMS_ITS | Clinical Summary ---
Author Organization [facility] Address [address] [place] [address] Care Team Providers Care Financial Management Analyst Name Role Phone None, Provider MD Primary Care Provider Unavaila ble Allergies No known active allergies Medications traMADol 50 MG tabletIndication s:Acute Pain < 3 Day Supply Take 1 tablet (50 mg total) by mouth every 6 (six) hours as needed for Pain. Indications : Acute Pain < 3 Day Supply 12 tablet 07/21/2020 Active Immunizations Immunization Administration Dates Next Due Tdap (Boostrix) 07/21/2020 [...] 7:16 AM CDT Height 188 cm (6' 2) 07/21/2020 7:16 AM CDT Body Mass Index [...] 5 Years) and At-Risk Patients (6 to 49 Years) Aged Out No longer eligi ble based on patient's age to complete this topic RSV Immunizations Under 20 Months Aged Out No longer eligible based on patient's age to complete this topic Care Teams Financial Management Analyst Relationship Specialty Start Date End Date None, Provider, PCP - General 07/21/20
--- OUTSIDE RECORDS SUMMARY | 2024-08-17 10:12 | XMS_ITS | Data Portability ---
Author Organization [place] - [facility], Main Office Address [address] [place] [id number] Care Team Providers Care Research Technologist Name Role Phone ROMEL FRIAS Primary Care [...] per schedule. Cont f/u with [facility] at [facility] as per schedule. Cont f/u with Neuro at [facility] as per schedule. HM: Flu - 02/18/23. Tdap - On next visit. Gardasil - Pt declined. F/u in 2 weeks. Annual labs in 02/24. [email or web address] Not available 02/18/2023 11:14:07 04/15/2023 04/15/2023 37 [...] per schedule. Cont f/u with Onco at [facility] as per schedule. Cont f/u with Neuro at [facility] as per schedule. HM: Flu - 02/18/23. Tdap - 2017. Gardasil - Pt declined. F/u in 3 months. Annual labs Or A1c, lipids before next visit. Annual labs in 02/24. [email or web address] Not available 04/15/2023 09:51:51 04/13/2024 04/13/2024 37 [...] per schedule. Cont f/u with Onco at [facility] as per schedule. Cont f/u with Neuro at [facility] as per schedule. Offered to refer to Cardio; but pt declined. HM: Flu - 02/18/23. Tdap - 2017. Gardasil - Pt declined. F/u in 3 months. Annual labs Or A1c, lipids before next visit. Annual labs in 02/24. [email or web address] Not available 04/13/2024 12:20:37 06/08/2024 06/08/2024 37 [...] per schedule. Cont f/u with Onco at [facility] as per schedule. Cont f/u with Neuro at [facility] as per schedule. Offered to refer to Cardio; but pt declined. 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 HM: Flu - 01/25. Tdap - 2017. Gardasil - Pt declined. F/u in 2-3 weeks. Annual labs in 06/26. [email or web address] Not available 06/08/2024 10:50:32 Plan of Treatment Reminders Order Date Submit Date Provider Last Modified By Organization Details Last Modified Time Details Appointments None recorded. Lab vitamin B12 + folate, serum or blood 2024 025 [email or web address] [facility] (Lab), [address] [place], [address], 5 10:07:41 magnesium, serum or plasma 2024 025 [facility] (Lab), [address] [place], [address], 5 19:54:19 CMP, serum or plasma 2024 025 [facility] (Lab), [address] [place], [address], 5 19:54:11 CBC w/ auto diff 2024 025 [facility] (Lab), [address] [place], [address], 5 13:31:30 lipid panel, blood [address] (Lab), [address] [place], [address], 5 10:40:10 TSH, serum, reflex free T4 [address] (Lab), [address] [place], [address], 5 15:25:25 PSA, serum or plasma [address] (Lab), [address] [place], [address], 5 15:28:41 urinalysis complete, reflex culture [address] (Lab), [address] [place], [address], 5 15:25:25 vitamin D, 25-hydroxy, total, serum [address] [place] [address] (Lab), [address] [place], [address], 5 10:07:40 glycohemogl obin, total, blood 2024 025 [facility] (Lab), [address] [place], [address], 5 20:14:35 microalbumi n, urine 2024 025 [email or web address] [facility] (Lab), [address] [place], [address], 5 15:45:50 lipid panel, serum [address] (Lab), [address] [place], [address], 4 12:18:35 glycohemogl obin, total, blood 2023 024 [email or web address] [facility] (Lab), [address] [place], [address], 4 12:43:57 vitamin B12 + folate, serum or blood [address] (Lab), [address] [place], [address], 4 08:47:06 vitamin D, 25-hydroxy, total, serum [address] (Lab), [address] [place], [address], 4 08:47:06 magnesium, serum or plasma [address] (Lab), [address] [place], [address], 4 08:47:06 H pylori igm+igg+iga Ab, serum [address] (Lab), [address] [place], [address], 4 08:47:06 glycohemogl obin, total, blood [address] (Lab), [address] [place], [address], 4 08:47:06 microalbumi n, urine [address] (Lab), [address] [place], [address], 4 08:47:06 CMP, serum or plasma [address] (Lab), [address] [place], [address], 4 08:47:05 CBC w/ auto diff [address] (Lab), [address] [place], [address], 4 08:47:05 lipid panel, blood [address] (Lab), [address] [place], [address], 4 08:47:05 TSH, serum, reflex free T4 [address] (Lab), [address] [place], [address], 4 08:47:05 PSA, serum or plasma [address] (Lab), [address] [place], [address], 4 08:47:05 urinalysis complete, reflex culture [address] (Lab), [address] [place], [address], 4 08:47:05 Referral None recorded. Procedures None recorded. Surgeries None recorded. Imaging None recorded. Medication Orders fenofibrate 160 mg tablet 2024 [facility] #45183, [address], [place], [place], [id number], 5 10:35:41 folic acid 1 mg tablet 2024 [facility] #24308, [address], [place], [place], [id number], 5 10:35:41 furosemide 40 mg tablet 2024 [facility] #21228, [address] [facility], [place], [place], [id number], 5 10:35:38 lisinopril 40 mg tablet 2024 [facility] #12421, [address] [facility], [place], [place], [id number], 5 10:35:39 amlodipine 10 mg tablet 2024 [facility] #65199, [address] [facility], [place], [place], [id number], 5 10:35:42 metoprolol succinate ER 50 mg tablet,exte nded release 24 hr 2024 [facility] #42020, [address], [place], [place], [id number], 5 10:35:42 atorvastati n 40 mg tablet 2024 [facility] #00823, [address] [facility], [place], [place], [id number], 5 10:35:39 pantoprazol e 40 mg tablet,darin yed release 2024 025 [facility] #25443, [address] [facility], [place], [place], [id number], 5 10:35:40 metformin ER 500 mg tablet,exte nded release 24 hr 2024 025 [facility] #36251, [address] [facility], [place], [place], [id number], 5 10:35:42 fenofibrate 160 mg tablet 2024 025 [facility] #74040, [address] [facility], [place], [place], [id number], 5 12:08:34 lisinopril 40 mg tablet 2024 [facility] #08655, [address] [facility], [place], [place], [id number], 5 12:08:30 amlodipine 10 mg tablet 2024 025 [facility] #56065, [address], [place], [id number], 5 12:09:30 metoprolol succinate ER 25 mg tablet,exte nded release 24 hr 2024 025 [facility] #00988, [address] [facility], [place], [place], [id number], 5 10:49:55 atorvastati n 40 mg tablet 2024 025 [facility] #88195, [address], [place], [id number], 5 12:08:33 folic acid 1 mg tablet 2024 025 [facility] #52371, [address] [facility], [place], [place], [id number], 5 12:08:34 ergocalcife rol (vitamin D2) 1,250 mcg (50,000 unit) capsule 2024 025 [facility] #91184, [address] [facility], [place], [place], [id number], 5 12:08:34 pantoprazol e 40 mg tablet,darin yed release 2024 025 [facility] #14920, [address] [facility], [place], [place], [id number], 5 12:08:28 metformin ER 500 mg tablet,exte nded release 24 hr 2024 025 [facility] #78887, [address], [place], [place], [id number], 5 12:08:31 furosemide 40 mg tablet 2024 025 [facility] #73398, [address] [facility], [place], [place], [id number], 5 12:08:33 fenofibrate 160 mg tablet 2023 024 [facility] #29519, [address] [facility], [place], [place], [id number], 4 09:43:10 lisinopril 40 mg tablet 2023 024 [facility] #54937, [address] [facility], [place], [place], [id number], 4 09:43:11 atorvastati n 40 mg tablet 2023 024 [facility] #35746, [address] [facility], [place], [place], [id number], 4 09:43:07 folic acid 1 mg tablet 2023 024 [facility] #65499, [address], [place], [place], [id number], 4 09:43:08 ergocalcife rol (vitamin D2) 1,250 mcg (50,000 unit) capsule 2023 024 [facility] #45045, [address] [facility], [place], [place], [id number], 4 09:43:07 pantoprazol e 40 mg tablet,darin yed release 2023 024 [facility] #00240, [address] [facility], [place], [place], [id number], 4 09:43:11 metformin ER 500 mg tablet,exte nded release 24 hr 2023 024 [facility] #81547, [address] [facility], [place], [place], [id number], 4 09:43:11 furosemide 40 mg tablet 2023 024 [facility] #16838, [address] [facility], [place], [place], [id number], 4 09:43:08 fenofibrate 160 mg tablet 2022 023 [facility] #49574, [address] [facility], [place], [place], [id number], 3 10:46:18 lisinopril 40 mg tablet 2022 023 [facility] #88974, [address] [facility], [place], [place], [id number], 10:46:17 atorvastati n 40 mg tablet 2022 023 [facility] #11533, [address] [facility], [place], [place], [id number], 10:46:19 folic acid 1 mg tablet 2022 023 [facility] #97606, [address] [facility], [place], [place], [id number], 10:46:15 pantoprazol e 40 mg tablet,darin yed release 2022 023 [facility] #26123, [address] [facility], [place], [place], [id number], 10:46:17 metformin ER 500 mg tablet,exte nded release 24 hr 2022 023 [facility] #54914, [address] [facility], [place], [place], [id number], 10:46:18 furosemide 40 mg tablet 2022 023 [facility] [employer] [facility] #96942, [address] [facility], [place], [place], [id number], 10:46:14 Patient TargetsNo targets recorded. Patient Instructions Encounter Date Encounter Id Patient Instructions Last Modified By Organization Details Last Modified Time 04/13/2024 [id number] high blood pressure: care instructions Not available 04/13/2024 12:12:23 dash diet: care instructions [email or web address] Not available 04/13/2024 12:12:23 When You Want to Lose Weight: Care Instructions [email or web address] Not available 04/13/2024 12:19:33 type 2 diabetes: care instructions Not available 04/13/2024 12:19:33 06/08/2024 [id number] When You Want to Lose Weight: Care Instructions [email or web address] Not available 06/08/2024 10:35:23 high blood pressure: care instructions [email or web address] Not available 06/08/2024 10:35:24 dash diet: care instructions [email or web address] Not available 06/08/2024 10:35:25 type 2 diabetes: care instructions [email or web address] Not available 06/08/2024 10:35:23 Reason for Referral None Reported. Results Created Date Observation Date Name Description Value Unit Range Abnormal Flag Note LastModifiedBy Organization Detail LastModifiedTime 06/09/1906/08/2024 TEST NOT PERFO RMED test not performed SEE COMMEN T UNABL E TO PERFO RM URINE MICRO ALBUM IN DUE TO QUANT ITY OF URINE SENT WAS INSUF FICIE NT TO PERFO RM TEST. Not Available [facility] (Lab) [address] [place], [address], 06/08/2024 19:31:37 06/09/19 25 06/08/2024 URINA LYSIS COMPL ETE/I RIS W/RFX color LIGHT- YELLOW Not Available [facility] (Lab) [address] [place], [address], 06/08/2024 19:31:59 06/09/19 25 06/08/2024 URINA LYSIS COMPL ETE/I RIS W/RFX appear CLEAR Not Available [facility] (Lab) [address] [place], [address], 06/08/2024 19:31:59 06/09/19 25 06/08/2024 URINA LYSIS COMPL ETE/I RIS W/RFX specific gravity 1.018 1.001- 1.030 Not Available [facility] (Lab) [address] [place], [address], 06/08/2024 19:31:59 06/09/19 25 06/08/2024 URINA LYSIS COMPL ETE/I RIS W/RFX pH 7.0 pH_un its 5.0-9. 0 Not Available [facility] (Lab) [address] [place], [address], 06/08/2024 19:31:59 06/09/19 25 06/08/2024 URINA LYSIS COMPL ETE/I RIS W/RFX leukocytes NEGATI VE [email or web address] L negati ve- Not Available [facility] (Lab) [address] [place], [address], 06/08/2024 19:31:59 06/09/19 25 06/08/2024 URINA LYSIS COMPL ETE/I RIS W/RFX nitrite NEGATI VE negati ve- Not Available [facility] (Lab) [address] [place], [address], 06/08/2024 19:31:59 06/09/19 25 06/08/2024 URINA LYSIS COMPL ETE/I RIS W/RFX protein NEGATI VE mg/dL negati ve- Not Available [facility] (Lab) [address] [place], [address], 06/08/2024 19:31:59 06/09/19 25 06/08/2024 URINA LYSIS COMPL ETE/I RIS W/RFX glucose NORMAL mg/dL normal - Not Available [facility] (Lab) [address] [place], [address], 06/08/2024 19:31:59 06/09/19 25 06/08/2024 URINA LYSIS COMPL ETE/I RIS W/RFX ketones NEGATI VE mg/dL negati ve- Not Available [facility] (Lab) [address] [place], [address], 06/08/2024 19:31:59 06/09/19 25 06/08/2024 URINA LYSIS COMPL ETE/I RIS W/RFX urobilinogen NORMAL mg/dL normal - Not Available [facility] (Lab) [address] [place], [address], 06/08/2024 19:31:59 06/09/19 25 06/08/2024 URINA LYSIS COMPL ETE/I RIS W/RFX bilirubin NEGATI VE mg/dL negati ve- Not Available [facility] (Lab) [address] [place], [address], 06/08/2024 19:31:59 06/09/19 25 06/08/2024 URINA LYSIS COMPL ETE/I RIS W/RFX blood NEGATI VE mg/dL negati ve- Not Available [facility] (Lab) [address] [place], [address], 06/08/2024 19:31:59 06/09/19 25 06/08/2024 URINA LYSIS COMPL ETE/I RIS W/RFX white blood cells 0-8 /i??h pfi?? 0-8 Not Available [facility] (Lab) [address] [place], [address], 06/08/2024 19:31:59 06/09/19 25 06/08/2024 URINA LYSIS COMPL ETE/I RIS W/RFX red blood cells 0-4 /i??h pfi?? 0-4 Not Available [facility] (Lab) [address] [place], [address], 06/08/2024 19:31:59 06/09/19 25 06/08/2024 URINA LYSIS COMPL ETE/I RIS W/RFX bacteria NONE Not Available [facility] (Lab) [address] [place], [address], 06/08/2024 19:31:59 06/09/19 25 06/08/2024 URINA LYSIS COMPL ETE/I RIS W/RFX mucous OCCASI ONAL /i??l pfi?? abnormal Not Available [facility] (Lab) [address] [place], [address], 06/08/2024 19:31:59 06/09/19 25 06/08/2024 URINA LYSIS COMPL ETE/I RIS W/RFX squamous epithelial NONE /i??l pfi?? abnormal Not Available [facility] (Lab) [address] [place], [address], 06/08/2024 19:31:59 06/09/19 25 06/08/2024 CBC/C OMPLE TE BLD COUNT W/DIF F white blood cells 9.1 x10'3 /uL 4.2-10 .8 Not Available [facility] (Lab) [address] [place], [address], 06/08/2024 19:35:51 06/09/19 25 06/08/2024 CBC/C OMPLE TE BLD COUNT W/DIF F red blood cells 5.09 x10'6 /uL 4.10-5 .80 Not Available [facility] (Lab) [address] [place], [address], 06/08/2024 19:35:51 06/09/19 25 06/08/2024 CBC/C OMPLE TE BLD COUNT W/DIF F hemoglobin 15.7 g/dL 13.2-1 7.0 Not Available [facility] (Lab) [address] [place], [address], 06/08/2024 19:35:51 06/09/19 25 06/08/2024 CBC/C OMPLE TE BLD COUNT W/DIF F hematocrit 46.5 % 39.3-5 0.0 Not Available [facility] (Lab) [address] [place], [address], 06/08/2024 19:35:51 06/09/19 25 06/08/2024 CBC/C OMPLE TE BLD COUNT W/DIF F mean red cell volume 91.4 fL 80.0-9 7.0 Not Available [facility] (Lab) [address] [place], [address], 06/08/2024 19:35:51 06/09/19 25 06/08/2024 CBC/C OMPLE TE BLD COUNT W/DIF F mean red cell hemoglobin 30.8 pg 27.0-3 3.0 Not Available [facility] (Lab) [address] [place], [address], 06/08/2024 19:35:51 06/09/19 25 06/08/2024 CBC/C OMPLE TE BLD COUNT W/DIF F mean RBC HGB concentratio n 33.8 g/dL 31.0-3 6.0 Not Available [facility] (Lab) [address] [place], [address], 06/08/2024 19:35:51 06/09/19 25 06/08/2024 CBC/C OMPLE TE BLD COUNT W/DIF F red cell distribution width 12.2 % 11.8-1 5.5 Not Available [facility] (Lab) [address] [place], [address], 06/08/2024 19:35:51 06/09/19 25 06/08/2024 CBC/C OMPLE TE BLD COUNT W/DIF F platelets 277 x10'3 /uL 150-40 0 Not Available [facility] (Lab) [address] [place], [address], 06/08/2024 19:35:51 06/09/19 25 06/08/2024 CBC/C OMPLE TE BLD COUNT W/DIF F mean platelet volume 10.6 fL 9.0-12 .4 Not Available [facility] (Lab) [address] [place], [address], 06/08/2024 19:35:51 06/09/19 25 06/08/2024 CBC/C OMPLE TE BLD COUNT W/DIF F neutrophils 56.6 % 39.0-7 2.0 Not Available [facility] (Lab) [address] [place], [address], 06/08/2024 19:35:51 06/09/19 25 06/08/2024 CBC/C OMPLE TE BLD COUNT W/DIF F lymphocytes 30.8 % 16.0-4 7.0 Not Available [facility] (Lab) [address] [place], [address], 06/08/2024 19:35:51 06/09/19 25 06/08/2024 CBC/C OMPLE TE BLD COUNT W/DIF F monocytes 7.2 % 5.0-12 .0 Not Available [facility] (Lab) [address] [place], [address], 06/08/2024 19:35:51 06/09/19 25 06/08/2024 CBC/C OMPLE TE BLD COUNT W/DIF F eosinophils 4.4 % 1.0-7. 0 Not Available [facility] (Lab) [address] [place], [address], 06/08/2024 19:35:51 06/09/19 25 06/08/2024 CBC/C OMPLE TE BLD COUNT W/DIF F basophils 0.7 % 0.0-2. 0 Not Available [facility] (Lab) [address] [place], [address], 06/08/2024 19:35:51 06/09/19 25 06/08/2024 CBC/C OMPLE TE BLD COUNT W/DIF F immature granulocytes 0.3 % 0.00-0 .50 Not Available [facility] (Lab) [address] [place], [address], 06/08/2024 19:35:51 06/09/19 25 06/08/2024 CBC/C OMPLE TE BLD COUNT W/DIF F neutrophils, absolute count 5.12 x10'3 /uL 1.5-8. 0 Not Available [facility] (Lab) [address] [place], [address], 06/08/2024 19:35:51 06/09/19 25 06/08/2024 CBC/C OMPLE TE BLD COUNT W/DIF F lymphocytes, absolute count 2.79 x10'3 /uL 1.07-3 .43 Not Available [facility] (Lab) [address] [place], [address], 06/08/2024 19:35:51 06/09/19 25 06/08/2024 CBC/C OMPLE TE BLD COUNT W/DIF F monocytes, absolute count 0.65 x10'3 /uL 0.29-0 .99 Not Available [facility] (Lab) [address] [place], [address], 06/08/2024 19:35:51 06/09/19 25 06/08/2024 CBC/C OMPLE TE BLD COUNT W/DIF F eosinophils, absolute count 0.40 x10'3 /uL 0.02-0 .53 Not Available [facility] (Lab) [address] [place], [address], 06/08/2024 19:35:51 06/09/1906/08/2024 CBC/C OMPLE TE BLD COUNT W/DIF F basophils, absolute count 0.06 x10'3 /uL 0.01-0 .08 Not Available [facility] (Lab) [address] [place], [address], 06/08/2024 19:35:51 06/09/19 25 06/08/2024 CBC/C OMPLE TE BLD COUNT W/DIF F immature granulocytes ,absolute 0.03 x10'3 /uL 0.00-0 .05 Not Available [facility] (Lab) [address] [place], [address], 06/08/2024 19:35:51 06/09/19 25 06/08/2024 CBC/C OMPLE TE BLD COUNT W/DIF F nucleated red blood cells 0.0 % -0 Not Available [facility] (Lab) [address] [place], [address], 06/08/2024 19:35:51 06/09/19 25 06/08/2024 CBC/C OMPLE TE BLD COUNT W/DIF F NRBC# 0.00 x10'3 /uL Not Available [facility] (Lab) [address] [place], [address], 06/08/2024 19:35:51 06/09/19 25 06/08/2024 COMPR EHENS DEBBY METAB OLIC PANEL sodium 139 mmol/ L 137-14 5 Not Available [facility] (Lab) [address] [place], [address], 06/08/2024 19:54:11 06/09/19 25 06/08/2024 COMPR EHENS DEBBY METAB OLIC PANEL potassium 3.5 mmol/ L 3.5-5. 1 Not Available [facility] (Lab) [address] [place], [address], 06/08/2024 19:54:11 06/09/19 25 06/08/2024 COMPR EHENS DEBBY METAB OLIC PANEL chloride 102 mmol/ L 98-107 Not Available [facility] (Lab) [address] [place], [address], 06/08/2024 19:54:11 06/09/19 25 06/08/2024 COMPR EHENS DEBBY METAB OLIC PANEL carbon dioxide 32 mmol/ L 22-30 high Not Available [facility] (Lab) [address] [place], [address], 06/08/2024 19:54:11 06/09/19 25 06/08/2024 COMPR EHENS DEBBY METAB OLIC PANEL anion gap 8.5 mmol/ L 14-22 low Not Available [facility] (Lab) [address] [place], [address], 06/08/2024 19:54:11 06/09/19 25 06/08/2024 COMPR EHENS DEBBY METAB OLIC PANEL glucose 115 mg/dL 70-99 high Not Available [facility] (Lab) [address] [place], [address], 06/08/2024 19:54:11 06/09/19 25 06/08/2024 COMPR EHENS DEBBY METAB OLIC PANEL BUN 15 mg/dL 8-19 Not Available [facility] (Lab) [address] [place], [address], 06/08/2024 19:54:11 06/09/19 25 06/08/2024 COMPR EHENS DEBBY METAB OLIC PANEL creatinine 0.76 mg/dL 0.66-1 .25 Not Available [facility] (Lab) [address] [place], [address], 06/08/2024 19:54:11 06/09/19 25 06/08/2024 COMPR EHENS DEBBY METAB OLIC PANEL GFR >60 Refer ence Range : [place] ge GFR Healt hy Adult : >60 [...] calcu lator is avail able on the [facility] websi te: [email or web address] :[email or web address] rg/pr ofess ional s/kdo qi/gf r_cal culat or Not Available [facility] (Lab) [address] [place], [address], 06/08/2024 19:54:11 06/09/19 25 06/08/2024 COMPR EHENS DEBBY METAB OLIC PANEL alkaline phosphatase 53 U/L 38-[address] [facility] (Lab) [address] [place], [address], 06/08/2024 19:54:11 06/09/19 25 06/08/2024 COMPR EHENS DEBBY METAB OLIC PANEL alanine aminotransfe rase 115 U/L 0-50 high Not Available [facility] (Lab) [address] [place], [address], 06/08/2024 19:54:11 06/09/19 25 06/08/2024 COMPR EHENS DEBBY METAB OLIC PANEL aspartate aminotransfe rase 74 U/L 15-46 high Not Available [facility] (Lab) [address] [place], [address], 06/08/2024 19:54:11 06/09/19 25 06/08/2024 COMPR EHENS DEBBY METAB OLIC PANEL bilirubin, total 0.50 mg/dL 0.20-1 .30 Not Available [facility] (Lab) [address] [place], [address], 06/08/2024 19:54:11 06/09/19 25 06/08/2024 COMPR EHENS DEBBY METAB OLIC PANEL calcium 9.8 mg/dL 8.4-10 .2 Not Available [facility] (Lab) [address] [place], [address], 06/08/2024 19:54:11 06/09/19 25 06/08/2024 COMPR EHENS DEBBY METAB OLIC PANEL total protein 7.5 g/dL 6.3-8. 2 Not Available [facility] (Lab) [address] [place], [address], 06/08/2024 19:54:11 06/09/19 25 06/08/2024 COMPR EHENS DEBBY METAB OLIC PANEL albumin 5.0 g/dL 3.4-5. 0 Not Available [facility] (Lab) [address] [place], [address], 06/08/2024 19:54:11 06/09/19 25 06/08/2024 COMPR EHENS DEBBY METAB OLIC PANEL globulin 2.5 g/dL 2.6-4. 2 low Not Available [facility] (Lab) [address] [place], [address], 06/08/2024 19:54:11 06/09/19 25 06/08/2024 COMPR EHENS DEBBY METAB OLIC PANEL A/G ratio 2.0 ratio 1.0-2. 0 Not Available [facility] (Lab) [address] [place], [address], 06/08/2024 19:54:11 06/09/19 25 06/08/2024 LIPID PANEL cholesterol 160 mg/dL 140-19 9 [facility] ROBERT NSUS RECOM MENDA TION FOR ERIBERTO STERO L: ADULT CHILD LOW RISK: <200 <170 BORDE RLINE : <200- 239 ----- HIGH RISK: >240 >200 Not Available [facility] (Lab) [address] [place], [address], 06/08/2024 19:54:16 06/09/19 25 06/08/2024 LIPID PANEL triglyceride s 344 mg/dL 0-150 high [facility] ROBERT NSUS REPOR T RECOM MENDA TION FOR TRIGL YCERI ANGELY: ADULT CHILD LOW RISK: <150 ----- BODER LINE: 150-1 99 ----- HIGH RISK: >200 ----- Not Available [facility] (Lab) [address] [place], [address], 06/08/2024 19:54:16 06/09/19 25 06/08/2024 LIPID PANEL HDL cholesterol 61 mg/dL 40- Not Available [facility] (Lab) [address] [place], [address], 06/08/2024 19:54:16 06/09/19 25 06/08/2024 LIPID PANEL [...] WILL NOT BE REPOR ALDO. Not Available [facility] (Lab) [address] [place], [address], 06/08/2024 19:54:16 06/09/1906/08/2024 MAGNE SIUM magnesium 1.2 mg/dL 1.6-2. 3 low Not Available [facility] (Lab) [address] [place], [address], 06/08/2024 19:54:18 06/09/19 25 06/08/2024 VITAM IN D 25-HY DROXY [id number] 43.2 NG/mL 30-100 Vitam in D Statu s: Defic ient: <20 ng/mL Insuf ficie nt: 20-29 ng/mL Suffi cient : 30-10 0 ng/mL Not Available [facility] (Lab) [address] [place], [address], 06/08/2024 20:08:49 06/09/19 25 06/08/2024 HEMOG LOBIN A1C HA1C 6.0 % 4.0-6. 0 Diabe christos Scree luan Crite familia: <5.7% Consi stent with absen ce of diabe christos 5.7-6 .4% Consi stent with incre ased risk for diabe christos (pred iabet es) >OR=6 .5% Consi stent with diabe christos REFER ENCE: Diabe christos Care 2016, 39(Hay ppl.1 ):s13 -s22 Not Available [facility] (Lab) [address] [place], [address], 06/08/2024 20:14:35 06/09/19 25 06/08/2024 TSH W/REF STEPHANIE FT4 TSH with reflex free T4 1.510 uIU/m L 0.465- 4.680 Not Available [facility] (Lab) [address] [place], [address], 06/08/2024 20:25:16 06/09/19 25 06/08/2024 PSA, TOTAL PSA, total 0.49 NG/mL 0.00-4 .00 Not Available [facility] (Lab) [address] [place], [address], 06/08/2024 20:25:18 06/09/19 25 06/08/2024 VITAM IN B12 (ZAKI JOHNNY ) vb12 591 pg/mL 239-93 1 Not Available [facility] (Lab) [address] [place], [address], 06/08/2024 20:57:56 06/09/19 25 06/08/2024 FOLAT E, SERUM /PLAS MA folate >20.0 NG/mL 2.76-2 0.0 Not Available [facility] (Lab) [address] [place], [address], 06/08/2024 20:57:58 06/09/19 25 06/09/2024 PSA SCREE N PSA medicare screen 0.49 NG/mL 0.00-4 .00 Not Available [facility] (Lab) [address] [place], [address], 06/09/2024 07:57:44 12/04/19 23 12/03/2022 MRI, brain + brain stem, w/wo contr ast No observ ation record ed. [address], [place], [address], 12/10/2022 10:38:39 02/12/20 23 02/11/2023 MRI, brain + brain stem, w/wo contr ast No observ ation record ed. [address], [place], [address], 02/18/2023 10:52:47 04/15/19 24 04/15/2023 MRI, brain + brain stem, w/wo contr ast No observ ation record ed. [address], [place], [address], 04/13/2024 12:04:35 06/24/19 24 06/24/2023 MRI, brain + brain stem, w/wo contr ast No observ ation record ed. [address], [place], [address], 04/13/2024 12:04:35 08/26/19 24 08/26/2023 MRI, brain + brain stem, w/wo contr ast No observ ation record ed. [address], [place], [address], 06/08/2024 10:35:56 10/28/19 24 10/28/2023 MRI, brain + brain stem, w/wo contr ast No observ ation record ed. [address], [place], [address], 04/13/2024 12:04:34 01/13/20 24 01/13/2024 MRI, brain + brain stem, w/wo contr ast No observ ation record ed. [address], [place], [address], 04/13/2024 12:04:34 04/06/19 25 04/06/2024 MRI, brain + brain stem, w/wo contr ast No observ ation record ed. [address], [place], [address], 04/13/2024 12:04:33 08/11/19 25 08/10/2024 MRI, brain + brain stem, w/wo contr ast No observ ation record ed. [address], [place], [address], 08/10/2024 14:35:52 Result Notes None recorded. 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 Not Available [facility] 3 09:19:41 Alcohol withdrawa l 535043139 Active 2021 Not Available [facility] 3 09:19:41 Claustrop hobia 82370438 Active 2021 Not Available [facility] 3 09:19:41 Astrocyto ma of brain 960333820 Active 2021 Not Available [facility] 3 09:19:41 Adult health examinati on Active 2021 Not Available [facility] 3 09:19:42 Tendernes s of spleen 805658521 Completed Not Available [facility] 3 09:19:42 Screening for disorder Active 2021 [facility] Available [facility] 3 09:19:42 Vitamin D deficienc y 36753375 Active 2021 Not Available [facility] 3 09:19:42 Hypertens debby disorder 22268057 Active 2020 Not Available [facility] 3 09:19:42 Obesity 381330952 Active 2020 Not Available [facility] 3 09:19:42 Pain of left knee joint 30389887101 4107 Active 2021 Not Available [facility] 3 09:19:43 Hyperlipi demia 17989209 Active 2021 Not Available [facility] 3 09:19:43 Dyspnea on exertion 73691681 Active 2020 Not Available [facility] 3 09:19:43 Alcohol dependenc e 04035625 Active 2021 Not Available [facility] 3 09:19:43 Muscle pain 09734975 Completed Not Available [facility] 3 09:19:43 Liver enzymes level above reference range 209857469 Active 2021 Not Available [facility] 3 09:19:43 Smoker 24227986 Active 2020 Not Available [facility] 3 09:19:44 Fatigue 34197788 Active 2022 Romel Frias MD [address], [place], [address] , [employer] [facility] [employer] [facility] 3 09:49:25 Type 2 diabetes mellitus without complicat ion 151429391 Active 2022 Romel Frias MD [address], [place], [address] , [facility] 3 09:50:05 Pneumonia 890196161 Active 2022 Romel Frias MD [address], [place], [address] , [facility] 3 10:33:52 Anxiety disorder 389828734 Active 2022 Romel Frias MD [address], [place], [address] , [facility] [employer] [facility] 3 10:35:23 Post-acut e COVID-19 1524023272 Active 2022 Romel Frias MD [address] [place], [address] , [facility] 3 11:15:08 Hypertrig lyceridem ia 061150251 Active 2022 Romel Frias MD [address], [place], [address] , [facility] 3 10:42:02 Cigarette smoker 59357674 Active 2022 Romel Frias MD [address] [place], [address] , [facility] 3 10:54:57 History of alcohol abuse 401300838 Active 2022 Romel Frias MD [address], [place], [address] , [facility] 3 10:55:17 Gastroeso phageal reflux disease without esophagit is 794637364 Active 2022 Romel Frias MD [address], [place], [address] , [facility] 3 10:55:17 Congestiv e heart failure 85405182 Active 2022 [address], [place], [address] , [facility] 3 10:55:17 Problem Notes None recorded. Procedures Surgical History Date Name Laterality Status Provider Name and Address Organization Details Recorded Time 5 Smoking Cessation completed Romel Frias MD [address], [place], [address], [facility] [facility] 06/08/2024 10:27:29 5 Smoking Cessation completed Romel Frias MD [address], [place], [address], [facility] 04/13/2024 12:18:40 3 Smoking Cessation completed Romel Frias MD [address], [place], [address], [facility] [employer] [facility] 02/18/2023 10:53:05 3 Smoking Cessation completed Romel Frias MD [address], [place], [address], [facility] [employer] [facility] 12/10/2022 10:47:50 Imaging Results None recorded. [...] % 100 /min Romel Frias MD [address], [place], [address], [facility] 04/13/2024 12:15:50 Date Recorded Body height Body mass index (BMI) Body weight Body temperature Systolic blood pressure Diastolic blood pressure Provider Name and Address Organization Details Last Updated DateTime 5 187.96 cm 36.5 kg/m2 684105. 23 g 98.2 [degF] 150 mm[Hg] 90 mm[Hg] Zaina Vasques RN [facility] 12:02:57 Date Recorded Heart rate Provider Name an d Address Organization Details Last Updated DateTime 04/15/2023 94 /min Royce Michelle [address], [place], [address], [facility] 04/15/2023 09:35:12 Date Recorded Body height Body mass index (BMI) Body weight Body temperature Oxygen saturation Oxygen saturation in Arterial blood by Pulse oximetry Systolic blood pressure Diastolic blood pressure Provider Name and Address Organization Details Last Updated DateTime 4 187.96 cm 36.6 kg/m2 790204. 18 g 98 [degF] 98 % 98 % 128 mm[Hg] 80 mm[Hg] Andres Gaitan [facility] [employer] [facility] 4 09:34:12 Date Recorded Heart rate Provider Name an d Address Organization Details Last Updated DateTime 06/08/2024 98 /min Royce Michelle [address], [address], [facility] [employer] [facility] 06/08/2024 10:43:58 Date Recorded Body height Body mass index (BMI) Body weight Body temperature Oxygen saturation Oxygen saturation in Arterial blood by Pulse oximetry Systolic blood pressure Diastolic blood pressure Provider Name and Address Organization Details Last Updated DateTime 5 187.96 cm 35.7 kg/m2 985039. 78 g 97.1 [degF] 95 % 95 % 150 mm[Hg] 80 mm[Hg] Zaina Vasques RN [facility] [employer] [facility] 5 10:24:11 Date Recorded Oxygen saturation Oxygen saturation in Arterial blood by Pulse oximetry Provider Name and Address Organization Details Last Updated DateTime 12/10/2022 96 % 96 % Romel Frias MD [address], [address], [facility] [employer] [facility] 12/10/2022 10:46:17 Date Recorded Body height Body mass index (BMI) Body weight Body temperature Heart rate Systolic blood pressure Diastolic blood pressure Provider Name and Address Organization Details Last Updated DateTime 3 187.96 cm 33.8 kg/m2 842681. 59 g 97.7 [degF] 76 /min 144 mm[Hg] 84 mm[Hg] Ydai Jimenez MA [facility] [employer] [facility] 3 10:36:40 Date Recorded Body height Body mass index (BMI) Body weight Body temperature Heart rate Respiratory rate Oxygen saturation Oxygen saturation in Arterial blood by Pulse oximetry Systolic blood pressure Diastolic blood pressure Provider Name and Address Organization Details Last Updated DateTime 3 187.96 cm 34.7 kg/m2 180573. 94 g 98 [degF] 78 /min 18 /min 98 % 98 % 140 mm[Hg] 80 mm[Hg] Andres Gaitan [facility] [employer] [facility] 3 10:51:11 Social History Question Answer Notes LastModified by Organizat ion Details LastModified Time Tobacco Smoking Status Current Every Day Smoker Not Available [facility] 05/02/2022 09:13:38 Do You Have An Advance Directive? No MIGRATION.22755 99627 Information not available 05/02/2022 How Many Years Have You Consumed Alcohol? 16 [email or web address] Information not available 06/08/2024 Do You Wear A Helmet When Biking? No MIGRATION.25029 49269 Information not available 05/02/2022 What Is Your Level Of Caffeine Consumption? Occasional Maybe If One Energy Drink Per Day Information not available 06/08/2024 In The 14 Days Before Symptom Onset, Have You Had Close Contact With A Laboratory-confir med COVID-19 While That Case Was Ill? No MIGRATION.85167 52162 Information not available 05/02/2022 In The 14 Days Before Symptom Onset, Have You Had Close Contact With A Person Who Is Under Investigation For COVID-19 While That Person Was Ill? No MIGRATION.26261 96541 Information not available 05/02/2022 What Type Of Diet Are You Following? REGULAR MIGRATION.30911 59182 Information not available 05/02/2022 What Is The Highest Grade Or Level Of School You Have Completed Or The Highest Degree You Have Received? [id number] MIGRATION.16270 91006 Information not available 05/02/2022 Have There Been Any Changes To Your Family Or Social Situation? No MIGRATION.13586 88293 Information not available 05/02/2022 Are There Any Guns Present In Your Home? No MIGRATION.81349 64771 Information not available 05/02/2022 Do You Use Insect Repellent Routinely? No MIGRATION.83934 51079 Information not available 05/02/2022 Do You Have A Medical Power Of Chip Machine Operator? No MIGRATION.90768 54706 Information not available 05/02/2022 What Is Your Current Pack Years? 10-19packyears [email or web address] Information not available 06/08/2024 Have You Ever Been Counseled For Unhealthy Alcohol Use? No MIGRATION.01005 56120 Information not available 05/02/2022 What Is Your Relationship Status? Single MIGRATION.58279 75196 Information not available 05/02/2022 Do You Use Your Seat Belt Or Car Seat Routinely? Yes MIGRATION.46673 15099 Information not available 05/02/2022 Do You Have Smoke And Carbon Monoxide Detectors In Your Home? Yes MIGRATION.68885 81490 Information not available 05/02/2022 At What Age Did You Start Smoking Tobacco? 21 [email or web address] Information not available 06/08/2024 Are You Passively Exposed To Smoke? Yes MIGRATION.10209 03702 Information not available 05/02/2022 Are There Any Smokers In Your House? No MIGRATION.62745 36240 Information not available 05/02/2022 How Much Tobacco Do You Smoke? 1 PPD MIGRATION.02018 88851 Information not available 05/02/2022 Do You Participate In Social Media? No MIGRATION.28177 46639 Information not available 05/02/2022 Do You Use Sunscreen Routinely? No MIGRATION.01944 16790 Information not available 05/02/2022 Has Tobacco Cessation Counseling Been Provided? No MIGRATION.88096 23799 Information not available 05/02/2022 How Many Years Have You Smoked Tobacco? 17 [email or web address] Information not available 06/08/2024 Have You Recently Traveled Abroad? No MIGRATION.65492 53897 Information not available 05/02/2022 Are You Currently In School? No MIGRATION.32474 88518 Information not available 05/02/2022 Do You Have Any Dietary Restrictions? No MIGRATION.79834 15077 Information not available 05/02/2022 Sex: Male Functional Status Question Answer Note LastModified by Organizat ion Details LastModified Time Do you use any illicit or recreational drugs? No MIGRATION.73291 06718 Information not available 05/02/2022 Do you or have you ever used any other forms of tobacco or nicotine? No MIGRATION.31162 36996 Information not available 05/02/2022 What is your level of alcohol consumption? 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 Moderate MIGRATION.72196 05592 Information not available 05/02/2022 Mental Status Question Answer Note LastModified by Organizat ion Details LastModified Time Do you feel stressed (tense, restless, nervous, or anxious, or unable to sleep at night)? [id number] MIGRATION.268089855 6 Information not available 05/02/2022 Family History Relationship Description Onset Age of this Age Resolved Age Notes LastModified by Organization Details LastModified Time Unspecified Relation Hypertensive disorder MIGRATION.625 [id number] Not available 05/02/2022 09:14:04 Medical History Condition [...] HOSPITALIZED OR SEEN IN [facility] IN THE PAST YEAR ? N [...] Immunizations Vaccine Type Date Status Note Provider [facility] e and Address Organization Details Recorded Time Influenza, split virus, quadrivalent, PF 02/19/2023 completed Adnres eugene [place] [facility] 02/19/2023 14:56:09 Past Encounters Encounter ID Performer Location Encounter Start Date Encounter Closed Date Diagnosis/Indication Diagnosis SNOMED-CT Code Diagnosis ICD10 Code Diagnosis Note [id number] Romel Frias MD [facility] [address] [place] [address] 07/18/2020 00:00:00 07/18/2020 15:45:09 [id number] Romel Frias MD [facility] [address] [place] [address] 08/15/2020 00:00:00 08/15/2020 12:49:43 [id number] Romel Frias MD [facility] [address] [place] [id number] 10/31/2020 00:00:00 10/31/2020 14:45:29 [id number] Romel Frias MD [facility] [address] [place] [id number] 05/08/2021 00:00:00 05/08/2021 16:12:31 [id number] Romel Frias MD [facility] [address] [place] [id number] 06/19/2021 00:00:00 06/19/2021 11:28:37 [id number] Romel Frias MD [facility] [address] [place] [id number] 01/17/2022 00:00:00 01/17/2022 17:19:56 [id number] Romel Frias MD [facility] [address] [place] [id number] 05/29/2022 09:18:36 05/29/2022 11:24:46 Hospital inpatient stay within past 30 days 4021294086 106 Z76.89 Fever 705852667 R50.9 Fatigue 44258560 R53.83 Diabetic ketoacidosis 42 9451687 E13.10 Type 2 malachi betes mellitus without complication 146454257 E11.9 Astrocytoma of brain 254 803445 C71.9 Seizure disorder 2890264 02 G40.909 Pneumonia 768124570 J18. 9 Anxiety disorder 0150298 06 F41.9 Sepsis 73298773 A41.9 Post-acute COVID-19 1119 728393 U09.9 [id number] Romel Frias MD [address] [address] 12/10/2022 10:27:35 12/10/2022 10:59:57 Astrocytoma of brain 467347933 C71.9 Hypertensive disorder 38 130360 I10 Obesity 849985033 E66.9 Seizure disorder 5757417 02 G40.909 Type 2 malachi betes mellitus without complication 594601361 E11.9 Hyperlipidemia 00768790 E78.5 Hypertriglyceridemia 302 668127 E78.2 Gastroesop hageal reflux disease without esophagitis 866968374 K21.9 History of alcohol abuse 351738958 F10.10 Congestive heart failure 78972590 I50.9 Cigarette smoker 3175702 7 F17.210 Alcohol dependence 75064 003 F10.20 Vitamin D deficiency 347 02365 E55.9 [id number] Romel Frias MD [address] [address] 02/18/2023 10:44:44 02/18/2023 11:05:52 Adult health examination 255539262 Z00.00 Vitamin D deficiency 347 15366 E55.9 Type 2 malachi betes mellitus without complication 993134013 E11.9 Obesity 282589475 E66.9 Gastroesop hageal reflux disease without esophagitis 209695732 K21.9 Alcohol dependence 89604 003 F10.20 Administra tion of influenza vaccine 72997457 Z23 Cigarette smoker 1148246 7 F17.031 [id number] Romel Frias MD [address] [address] 04/15/2023 09:28:34 04/15/2023 10:01:54 Vitamin D deficiency 73748517 E55.9 Type 2 malachi betes mellitus without complication 101870602 E11.9 Obesity 389229488 E66.9 Gastroesop hageal reflux disease without esophagitis 861042081 K21.9 Alcohol dependence 10324 003 F10.20 Cigarette smoker 8974387 7 F17.210 Hypertensive disorder 38 039652 I10 Congestive heart failure 63928798 I50.9 Hypertriglyceridemia 302 478788 E78.2 Hyperlipidemia 32012403 E78.5 History of alcohol abuse 290593027 F10.10 [id number] Romel Frias MD [address] [id number] 04/13/2024 11:46:33 04/13/2024 12:15:47 Gastroesophageal reflux disease without esophagitis 819615380 K21.9 Vitamin D deficiency 347 17645 E55.9 Type 2 malachi betes mellitus without complication 645248356 E11.9 Obesity 372381816 E66.9 Alcohol dependence 97036 003 F10.20 Cigarette smoker 0243853 7 F17.210 Hypertensive disorder 38 639278 I10 Congestive heart failure 29916502 I50.9 Hypertriglyceridemia 302 024457 E78.2 Hyperlipidemia 51114022 E78.5 History of alcohol abuse 985622687 F10.10 [id number] Romel Frias MD [address] [id number] 06/08/2024 10:16:09 06/08/2024 10:54:26 Hypertensive disorder 16783359 I10 Congestive heart failure 63365880 I50.9 Type 2 malachi betes mellitus without complication 143079510 E11.9 Gastroesop hageal reflux disease without esophagitis 073942136 K21.9 Vitamin D deficiency 347 21460 E55.9 Obesity 743159885 E66.9 Alcohol dependence 88472 003 F10.20 Cigarette smoker 4004204 7 F17.210 Hypertriglyceridemia 302 831429 E78.2 Hyperlipidemia 09569484 E78.5 History of alcohol abuse 181201273 F10.10 Adult [facility] th examination 279422764 Z00.00 Health Concerns Section Related Observation LastModified by Organization Detai ls LastModified Time None Recorded Concern Status LastModified by Organization Details LastModified Time None Recorded Advance Directives Directive N: Payers Insurance Date Sequence Insurance Name Policy Number Policy Singh Covered Member ID Singh Member ID Guarantor Name 06/18/2024 1 [place] 33A Jerald Ca [id number] Jerald Ca Notes Date Note Type Note Provider Name and Address Organization Details Recorded Time 12/10/2022 text/html ACV:Here with kenneth gabriel. Pt needs refills on his chronic meds. Doing overall well and denies any new concern. Denies any problem with meds. Pt is f/u with Dr. Rowland (On[facility]) at [facility] for his h/o brain cancer and seizures and he has finished all chemo and radiation therapy and he got MRI brain with them recently too. Still smoking and alcohol ++. Last visit in 01/23. Romel Frias MD [address], [place], [address], [employer] 12/10/2022 10:58:21 02/18/2023 text/html Pt is here with mom for his annual exam. Doing overall well and denies any new concern. Denies any problem with meds. Pt is f/u with Dr. Rowland (Onco) at [facility] for his h/o astrocytoma and seizures and he has finished all chemo and radiation therapy. Pt is getting scans with them every few months. Still smoking and alcohol ++. Romel Frias MD [address], [place], [address], [employer] 02/18/2023 11:19:04 04/15/2023 text/html Pt is here with mom for f/u on his annual labs and chronic conditions. Doing overall well and denies any new concern. Denies any problem with meds. Somehow, we don't have any of his lab results yet. Pt is f/u with Dr. Rowland (Onco) at [facility] for his h/o astrocytoma and seizures and he has finished all chemo and radiation therapy. Pt is getting scans with them every 2-4 months. Still smoking and alcohol ++. 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 Romel Frias MD [address], [place], [address], [employer] [facility] [employer] 04/15/2023 09:52:49 04/13/2024 text/html Pt is here [...] is f/u with Dr. Rowland (Onco) at [facility] for his h/o astrocytoma and seizures and he has finished all chemo and radiation therapy. Pt is getting scans with them every 2-4 months. Still smoking and alcohol ++. 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 Romel Frias MD [address], [place], [address], [employer] [facility] [employer] 04/13/2024 12:20:57 06/08/2024 text/html Pt is here [...] is f/u with Dr. Rowland (Onco) at [facility] for his h/o astrocytoma and seizures and he has finished all chemo and radiation therapy. Pt is getting scans with them every 2-4 months. Still smoking and alcohol ++. 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 Romel Frias MD [address], [place], [address], [employer] [facility] 06/08/2024 10:51:02
--- OUTSIDE RECORDS SUMMARY | 2024-08-17 10:12 | XMS_ITS | Clinical Summary ---
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) 08/10/2024 Orders Only [facility] Oncology and Hematology - Darren [address] [place] [address] Kana Rowland MD 07/18/2024 Refill [facility] Oncology and Hematology [facility] [address] [place] [address] Aleksandra Orellana MD Seizure disorder ([facility]/HCC) 07/07/2024 External Device Data STL ABSTRACTION Provider, Abstract 06/08/2024 10:00 AM CDT Office Visit [facility] Oncology and Hematology - Darren [address] [place] [address] Kana Rowland MD 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) 06/02/2024 Orders Only [facility] Oncology and Hematology - Darren [address] [place] [address] Kana Rowland MD from Last 3 Months [...] on file 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 Gender Identity Not on file Sexual Orientation [...] (273 lb) 08/17/2024 10:03 AM CDT Height 188 cm (6' 2) 05/16/2023 2:11 PM CDT Body Mass Index 35.05 05/16/2023 2:11 PM CDT Plan of Treatment Upcoming Encounters Date Type Department Care Team (Late st Contact Info) Description 09/30/2024 2:00 PM CDT Office Visit [facility] Neurology [address] [facility] [address] [place] [address] Damon Sunshine MD [address] [place] [address] Health Maintenance Due Date Last [...] Comments MRI BRAIN W WO CONTRAST Routine 08/10/2024 12:23 PM CDT MRI BRAIN W WO CONTRAST Routine 06/01/2024 9:00 AM CDT HEMOGLOBIN A1C Stat 05/21/2022 2:59 PM CDT LIPID PANEL Stat 05/21/2022 2:57 PM CDT from Last 3 Months or Most Recently Relevant to Health Maintenance Results * MRI BRAIN W WO CONTRAST (08/10/2024 12:23 PM CDT) Only the most recent of2 resultswithin the time period is included. Anatomical Region Laterality Modality Head Magnetic Resonan ce us Kana Rowland MD MR ORDERABLES Final Result * (ABNORMAL) HEMOGLOBIN A1C (05/21/2022 2:59 PM CDT) HEMOGLOBIN A1C >16.7(H) <5.7 % 05/21/2022 8:50 PM CDT [facility] [employer] [facility] EST. AVG GLUCOSE, A1C >433 mg/dL 05/21/2022 8:50 PM CDT [facility] [employer] [facility] Blood Venipuncture / Unknown 05/21/2022 2:59 PM CDT 05/21/2022 3:04 PM CDT Narrative [facility] [employer] [facility] - 05/21/2022 8:50 PM CDT HGB A1C INTERPRETATION NORMAL: <5.7% PRE-DIABETES: 5.7 - 6.4% DIABETES: 6.5% OR GREATER us Dylan Fulton DO CHEMISTRY ORDERABLES Final Res ult [facility] [employer] [facility]# [id number] [address] [place] [address] * LIPID PANEL (05/21/2022 2:57 PM CDT) CHOLESTEROL 05/21/2022 5:59 PM CDT [facility] Comment:Unable to evaluate d ue to lipemia. TRIGLYCERIDE 05/21/2022 5:59 PM CDT [facility] Comment:Unable to evaluate d ue to lipemia. HDL 05/21/2022 5:59 PM CDT [facility] [employer] [facility] Comment: Measured HDL is not accurate when the Triglyceride value exceeds 1200. Unable to evaluate due to lipemia. Unable to evaluate due to lipemia. LDL CALCULATED 05/21/2022 5:59 PM CDT [facility] [employer] [facility] Comment:Unable to Calculate Result NON-HDL CHOLESTEROL 05/21/2022 5:59 PM CDT [facility] [employer] [facility] Comment:Unable to Calculate Result Blood Venipuncture / Unknown 05/21/2022 2:57 PM CDT 05/21/2022 3:04 PM CDT Narrative [facility] - 05/21/2022 5:59 PM CDT [...] Fulton DO CHEMISTRY ORDERABLES Final Res ult [facility]# [id number] [address] [place] [address] from Last 3 Months or Most Recently Relevant to Health Maintenance Insurance [facility] FEDERAL RX [facility] [employer] RX BYRNES PLANS (INTERNAL) [facility] Advance Directives For more information, please contact: [phone] * Full Code (Latest Code Status on File) Date Activated Date Inactivated Comments 05/21/2022 3:08 PM 05/27/2022 6:46 PM
[2024-08-17 10:53] LABS: Alanine Aminotransferase 97 U/L (6-50); Albumin Level 4.4 g/dL (3.5-5.1); Alkaline Phosphatase 47 U/L (38-126); Anion Gap 10 mmol/L (4-12); Aspartate Amino Transferase 71 U/L (17-59); Bilirubin,Total 0.4 mg/dL (0.2-1.3); Blood Urea Nitrogen 14 mg/dL (9-20); Calcium 9.3 mg/dL (8.4-10.2); Carbon Dioxide 31 mmol/L (22-30); Chloride 101 mmol/L (98-107); Estimated Glomerular Filt Rate > 60; Glucose 137 mg/dL (65-110); Potassium 3.1 mmol/L (3.4-5.0); Sodium 142 mmol/L (137-145); Total Protein 7.3 g/dL (6.3-8.2)
== END 2024-08-17 09:38 | disposition home or self-care (01) ==
LOC: ANHLAB 09:37
PROVIDERS: PCP Family Medicine; Visit Provider Internal Medicine Hematology & Oncology
DX: C71.9 Malignant neoplasm of brain, unspecified (principal)
CPT/HCPCS: 36415; 80047; 80053; 85025

== ENCOUNTER 2024-10-30 09:30 | Outpatient (CLI) | payer BC, SELFPAY ==
--- NOTE | ~2024-10-30 | MR_ITS ---
EXAMINATION: MR brain/brain stem wo/w con DATE: 10/30/2024 10:17 INDICATION: Low-grade glioma TECHNIQUE: Magnetic resonance imaging (MRI) of the brain and brainstem was performed without and with 15 mL Multihance intravenous contrast. Sequences included sagittal and axial T1-weighted SE, axial diffusion-weighted FS SE, axial 3D SWAN, axial T2-weighted FLAIR, and axial T2-weighted FSE. Postcontrast axial, sagittal and coronal T1-weighted SE was obtained. Apparent diffusion coefficient (ADC) maps were created. COMPARISON: 08/10/2024 and 10/28/2023 FINDINGS: Postoperative change of prior left frontoparietal craniotomy with underlying region of left frontoparietal encephalomalacia likely for resection of a reported low-grade glioma. No recent interval change in the surrounding T2 hyperintense gliosis along the margin of the resection cavity which has decrea sed slightly since the study from one year prior. No abnormal enhancement on the postcontrast images to suggest residual/locally recurrent disease. No other abnormally enhancing brain lesions identified. No acute intracranial hemorrhage, acute infarction or abnormal extra axial fluid collection. There is some susceptibility artifact in the region of prior surgery likely secondary to prior bleeding related to the surgery. Ventricles are normal and symmetric. No mass/mass effect. The orbits and mastoid air cells are normal. Mucous retention cysts in the right sphenoid and bilateral maxillary sinuses with moderate mucosal thickening in the bilateral ethmoid sinuses. IMPRESSION: 1. Long-term slight decrease with no recent interval change in T2 hyperintense likely gliosis along the margins of an unchanged left frontoparietal resection cavity reportedly for low-grade glioma. No evident abnormal enhancement on the post contrast imaging to suggest residual or locally recurrent disease. Reviewed, dictated and finalized at location A.
--- OUTSIDE RECORDS SUMMARY | 2024-10-30 09:36 | XMS_ITS | Clinical Summary ---
Author Organization 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 02/09/20 24 Active lamoTRIgine (LaMICtal) 100 mg tabletIndicati ons:Seizure disorder (CMS/HCC) TAKE 1 TABLET(100 MG) BY MOUTH TWICE DAILY 180 Tablet 1 07/21/19 25 Active LORazepam (ATIVAN) 1 mg tabletIndicati ons:Low grade glioma of brain (CMS/HCC) Take 1 tablet 1 hour prior to MRI, and 1 tablet 15 minutes prior to MRI 2 Tablet 08/18/19 25 Active levETIRAcetam (KEPPRA) 500 mg tabletIndicati ons:Seizure disorder (CMS/HCC) TAKE 3 TABLETS(1500 MG) BY MOUTH TWICE DAILY 540 Tablet 10/29/19 25 Active levETIRAcetam (KEPPRA) 500 mg tabletIndicati ons:Seizure disorder (CMS/HCC) TAKE 3 TABLETS(1500 MG) BY MOUTH TWICE DAILY 540 Tablet 3 11/29/19 24 025 Discontinued Active Problems Problem Noted [...] Encounters Date Type Department Care Team Description 10/27/2024 Refill [facility] Neurology [address] [place] [address] Damon Sunshine MD Seizure disorder ([facility]) 10/20/2024 External Device Data STL ABSTRACTION Provider, Abstract 10/18/2024 Refill [facility] Neurology [address] [place] [address] Damon Sunshine MD Seizure disorder ([facility]) 10/07/2024 External Device Data STL ABSTRACTION Provider, Abstract 09/28/2024 Telephone [facility] Neurology [address] [place] [address] Damon Sunshine MD Needs Appointment 08/17/2024 9:45 AM CDT Office Visit [facility] Oncology and Hematology - Darren [address] [place] [address] Kana Rowland MD 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) 08/17/2024 Orders Only [facility] Oncology and Hematology - Darren [address] [place] [address] Kana Rowland MD 08/10/2024 Orders Only [facility] Oncology and Hematology - Darren [address] [place] [address] Kana Rowland MD from Last 3 Months [...] on file 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 Gender Identity Not on file Sexual Orientation [...] Care Team (Late st Contact Info) Description 11/06/2024 8:00 AM CDT Office Visit [facility] Neurology [address] [facility] [address] [place] [address] Damon Sunshine MD [address] [facility] [address] [place] [address] 11/06/2024 12:00 PM CDT Office Visit [facility] Oncology and Hematology - Darren [address] [place] [address] Aleksandra Orellana MD [address] [place] [address] Health Maintenance Due Date Last Done Comments DIABETES ANNUAL FOOT EXAM 2004 DIABETES ANNUAL RETINAL EXAM 2004 DIABETES MICROALBUMIN ANNUAL SCREEN 2004 HEPATITIS B VACCINES (1 of 3 - 19+ 3-dose series) 2005 HPV VACCINES (1 - 3-dose SCDM series) 2013 LDL CHOLESTEROL ANNUAL 05/22/2023 05/21/2022 INFLUENZA VACCINE (#1) 2024 02/19/2023 DIABETES HBA1C Q 6 MONTHS 12/08/2024 06/08/2024, DTAP/TDAP/TD VACCINES (2 - Td or Tdap) 07/21/2030 Procedures Procedure Name Priority Date/Time Associated Diagnosis Comments BASIC METABOLIC PANEL Routine 08/17/2024 4:27 PM CDT COMPREHENSIVE METABOLIC PANEL Routine 08/17/2024 3:44 PM CDT MRI BRAIN W WO CONTRAST Routine 08/10/2024 12:23 PM CDT HEMOGLOBIN A1C Stat 05/21/2022 2:59 PM CDT LIPID PANEL Stat 05/21/2022 2:57 PM CDT from Last 3 Months or Most Recently Relevant to Health Maintenance Results * BASIC METABOLIC PANEL (08/17/2024 4:27 PM CDT) Blood Kana Rowland MD CHEMISTRY ORDERABLES Final Resu lt * COMPREHENSIVE METABOLIC PANEL (08/17/2024 3:44 PM CDT) Blood Kana Rowland MD CHEMISTRY ORDERABLES Final Resu lt * MRI BRAIN W WO CONTRAST (08/10/2024 12:23 PM CDT) Anatomical Region Laterality Modality Head Magnetic Resonan ce Kana Rowland MD MR ORDERABLES Final Result * (ABNORMAL) HEMOGLOBIN A1C (05/21/2022 2:59 PM CDT) [facility] HEMOGLOBIN A1C >16.7(H) <5.7 % 05/21/2022 8:50 PM CDT [facility] EST. AVG GLUCOSE, A1C >433 mg/dL 05/21/2022 8:50 PM CDT [facility] Blood Venipuncture / Unknown 05/21/2022 2:59 PM CDT 05/21/2022 3:04 PM CDT Narrative [facility] - 05/21/2022 8:50 PM CDT HGB A1C INTERPRETATION NORMAL: <5.7% PRE-DIABETES: 5.7 - 6.4% DIABETES: 6.5% OR GREATER Dylan Fulton DO CHEMISTRY ORDERABLES Final Res ult [facility]# [id number] [address] [place] [address] * LIPID PANEL (05/21/2022 2:57 PM CDT) [facility] CHOLESTEROL 05/21/2022 5:59 PM CDT [facility] Comment:Unable to evaluate d ue to lipemia. TRIGLYCERIDE 05/21/2022 5:59 PM CDT [facility] Comment:Unable to evaluate d ue to lipemia. HDL 05/21/2022 5:59 PM CDT [facility] Comment: Measured HDL is not accurate when the Triglyceride value exceeds 1200. Unable to evaluate due to lipemia. Unable to evaluate due to lipemia. LDL CALCULATED 05/21/2022 5:59 PM CDT [facility] Comment:Unable to Calculate Result NON-HDL CHOLESTEROL 05/21/2022 5:59 PM CDT [facility] Comment:Unable to Calculate Result Blood Venipuncture / Unknown 05/21/2022 2:57 PM CDT 05/21/2022 3:04 PM CDT Narrative [facility] - 05/21/2022 5:59 PM CDT TOTAL CHOLESTEROL [...] Fulton DO CHEMISTRY ORDERABLES Final Res ult [facility] CLIA# [id number] [address] [place] [place] [id number] from Last 3 Months or Most Recently Relevant to Health Maintenance Insurance [facility] FEDERAL BCBS FEDERAL RX [facility] [employer] RX BYRNES PLANS (INTERNAL) [facility] Internal Plans Advance Directives For more information, please contact: [phone] * Full Code (Latest Code Status on File) Date Activated Date Inactivated Comments 05/21/2022 3:08 PM 05/27/2022 6:46 PM
--- OUTSIDE RECORDS SUMMARY | 2024-10-30 09:36 | XMS_ITS | Encounter Summary ---
Author Organization [facility] Address [address] [place] [address] Care Team Providers Care Technical Marketing Engineer Name Role Phone Unavailable Primary Care Provider Unavailabl e Reason for Visit * Reason Comments Med Refill Encounter Details Date Type Department Care Team ([facility] Contact Info) Description 05/19/2022 Refill [facility] Oncology and Hematology - Darren [address] [place] [address] Kana Rowland MD [address] [facility] [address] [place] [address] Social History Tobacco Use Types [...] on file 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 No / Unsure 05/21/2022 11:39 AM CDT documented as of this encounter Plan of Treatment Upcoming Encounters Date Type Department Care Team (Late Contact Info) Description 11/06/2024 8:00 AM CDT Office Visit [facility] [address] [facility] [address] [place] [address] Damon Sunshine MD [address] [place] [address] 11/06/2024 12:00 PM CDT Office Visit [facility] Oncology and Hematology [facility] [address] [place] [address] Aleksandra Orellana MD [address] [place] [address] documented as of this encounter Visit Diagnoses Not on filedocumented in this encounter Additional Health Concerns Infection Onset Date Last Indicated Resolved Time COVID-19 Comment:Symptom onset: 05/20 Positive test: 05/21 Immunocompromised-chemo 05/20/2022 05/21/2022 08/20/2022 1:16 AM C DT documented as of this encounter
== END 2024-10-30 09:31 | disposition home or self-care (01) ==
PROVIDERS: PCP Family Medicine; Visit Provider Internal Medicine Hematology & Oncology
DX: C71.9 Malignant neoplasm of brain, unspecified (principal)
CPT/HCPCS: 70553; A9577

== ENCOUNTER 2025-02-19 13:31 | Outpatient (CLI) | payer BC, SELFPAY ==
--- NOTE | ~2025-02-19 | MR_ITS ---
EXAMINATION: MR brain/brain stem wo/w con DATE: 02/19/2025 14:29 INDICATION: Low-grade glioma. TECHNIQUE: Magnetic resonance imaging (MRI) of the brain and brainstem was performed without and with 15 mL MultiHance intravenous contrast. COMPARISON: Brain MRI 10/30/2024 FINDINGS: There is a resection cavity in left frontoparietal region. There is a stable distribution of increased T2-weighted signal intensity adjacent to the resection margins. There is a stable small focus of increased T2-weighted signal intensity in the left frontal lobe subcortical white matter. There is no acute ischemic infarct or intracranial hemorrhage. There is no abnormal mass lesion. There is ex vacuo dilatation of left lateral ventricle. There is mucosal thickening in the paranasal sinuses. The orbits are normal. The mastoid air cells are normal. IMPRESSION: 1. Resection cavity in left frontoparietal region. Stable chronic increased T2- weighted signal intensity at the margins of the cavity may be treatment change. Comparison with preoperative imaging is recommended. Reviewed, dictated and finalized at location E. L INSTALLER INSPECTOR
--- OUTSIDE RECORDS SUMMARY | 2025-02-19 13:37 | XMS_ITS | Clinical Summary ---
Author Organization [facility] Address [address] [place] [address] Care Team Providers Care Phlebotomy Director Name Role Phone None, Provider MD Primary [...] 3 - 19+ 3-dose series) 2005 HPV Vaccines (1 - 3-dose SCD M series) 2013 COVID-19 Vaccine (2 - 2024-2 6 season) 2024 06/06/2020 Influenza Adult (#1) 2024 DTaP, Tdap and Td Vaccines ( 2 - Td or Tdap) 07/21/2030 07/21/2020 Hepatitis A Vaccines Aged Out No long er eligible based on patient's age to complete [...] age to complete this topic Care Teams Phlebotomy Director Relationship Specialty Start Date End Date None, Provider, PCP - General 07/21/20
--- OUTSIDE RECORDS SUMMARY | 2025-02-19 13:37 | XMS_ITS | Clinical Summary ---
Author Organization [facility] Address [address] [place] [address] Phone Care Team Providers Care Editor Continuity And Script Name Role Phone Unavailable Primary Care Provider [...] CDT 3 Active naloxone (NARCAN) 4 mg/spray [place], Non-Aerosol EMERGENCY USE ONLY: Administer 1 spray [...] hours. For headaches 30 Tablet 4 Active amLODIPine (NORVASC) 10 mg tablet Take 10 mg by mouth daily. 4 Active levETIRAcetam (KEPPRA) 500 mg tabletIndicatio ns:Seizure disorder (CMS/HCC) TAKE 3 TABLETS(1500 MG) BY MOUTH TWICE DAILY 540 Tablet 5 Active LORazepam (ATIVAN) 1 mg tabletIndicatio ns:Low grade glioma of brain (CMS/HCC) Take 1 tablet 1 hour prior to MRI, and 1 tablet 15 minutes prior to MRI 2 Tablet 5 Active lamoTRIgine (LaMICtal) 100 mg tabletIndicatio ns:Seizure disorder (CMS/HCC) TAKE 1 TABLET(100 MG) BY MOUTH TWICE DAILY 180 Tablet 1 5 Active Active Problems Problem Noted Date Diagnosed [...] Encounters Date Type Department Care Team Description 01/11/2025 Refill [facility] Oncology and Hematology [facility] [address] [place] [address] Kana Rowland MD Seizure disorder ([facility]) 12/22/2024 External Device Data STL ABSTRACTION Provider, Abstract 12/08/2024 External Device Data STL ABSTRACTION Provider, Abstract 12/01/2024 Refill [facility] Oncology and [facility] [address] [place] [address] Kana Rowland MD Low grade glioma of brain (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 Gender Identity Not on file Sexual Orientation [...] Care Team (Late st Contact Info) Description 02/24/2025 10:00 AM WILLOW ANALYST Office Visit [facility] Oncology and Hematology [facility] [address] [place] [address] Jorge Day MD [address] [address] Health Maintenance Due Date Last Done Comments DIABETES ANNUAL FOOT EXAM 2004 DIABETES ANNUAL RETINAL EXAM 2004 DIABETES MICROALBUMIN ANNUAL SCREEN 2004 HEPATITIS B VACCINES (1 of 3 - 19+ 3-dose series) 2005 LDL CHOLESTEROL ANNUAL 05/22/2023 05/21/2022 INFLUENZA VACCINE (#1) 2024 02/19/2023 DIABETES HBA1C Q 6 MONTHS 12/08/2024 06/08/2024, DTAP/TDAP/TD VACCINES (2 - Td or Tdap) 07/21/2030 HPV VACCINES (No Doses Required) Completed Procedures Procedure Name Priority Date/Time Associated Diagnosis Comments HEMOGLOBIN A1C Stat 05/21/2022 2:59 PM CDT LIPID PANEL Stat 05/21/2022 2:57 PM CDT from Last 3 Months or Most Recently Relevant to Health Maintenance Results * (ABNORMAL) HEMOGLOBIN A1C (05/21/2022 2:59 PM CDT) HEMOGLOBIN A1C >16.7(H) <5.7 % 05/21/2022 8:50 PM CDT [facility] EST. AVG GLUCOSE, A1C >433 mg/dL 05/21/2022 8:50 PM CDT [facility] Blood Venipuncture / Unknown 05/21/2022 2:59 PM CDT 05/21/2022 3:04 PM CDT [facility] [employer] [facility] - 05/21/2022 8:50 PM CDT HGB A1C INTERPRETATION NORMAL: <5.7% PRE-DIABETES: 5.7 - 6.4% DIABETES: 6.5% OR GREATER Dylan Fulton DO CHEMISTRY ORDERABLES Final Res ult [facility] [employer] [facility]# [id number] [address] [place] [address] * LIPID PANEL (05/21/2022 2:57 PM CDT) [facility] CHOLESTEROL 05/21/2022 5:59 PM CDT [facility] [employer] [facility] Comment:Unable to evaluate d ue to lipemia. TRIGLYCERIDE 05/21/2022 5:59 PM CDT [facility] Comment:Unable to evaluate d ue to lipemia. HDL 05/21/2022 5:59 PM CDT [facility] Comment: Measured HDL is not accurate when the Triglyceride value exceeds 1200. Unable to evaluate due to lipemia. Unable to evaluate due to lipemia. LDL CALCULATED 05/21/2022 5:59 PM CDT [facility] Comment:Unable to Calculate Result NON-HDL CHOLESTEROL 05/21/2022 5:59 PM CDT [facility] Comment:Unable to Calculate Result Blood Venipuncture / Unknown 05/21/2022 2:57 PM CDT 05/21/2022 3:04 PM CDT [facility] - 05/21/2022 5:59 PM CDT TOTAL [...] Fulton DO CHEMISTRY ORDERABLES Final Res ult [facility]# [id number] [address] [facility] [place] [address] from Last 3 Months or Most Recently Relevant to Health Maintenance Insurance [facility] FED[facility] RX [facility] RX BYRNES PLANS (INTERNAL) [facility] Internal Plans Advance Directives For more information, please contact: [phone] * Full Code (Latest Code Status on File) Date Activated Date Inactivated Comments 05/21/2022 3:08 PM 05/27/2022 6:46 PM
== END 2025-02-19 13:32 | disposition home or self-care (01) ==
PROVIDERS: PCP Family Medicine; Visit Provider Internal Medicine Hematology & Oncology
DX: C71.9 Malignant neoplasm of brain, unspecified (principal)
CPT/HCPCS: 70553; A9577